=== PATIENT | male | born 1970 | race Two or more races ===

== ENCOUNTER 2016-10-25 09:30 | Inpatient (IN) | payer MEDICAID ==
[~2016-10-25] VITALS: Ht 170.2 cm; Wt 85.7 kg
[~2016-10-25 09:30] MED LIST: GLIP-116 PO; IBUP600T27 PO; LANS30CA63 PO; MET25T PO; METF-316 PO; NITR0.4S29 SL; ONGLYZA PO
[2016-10-25 09:59] LABS: Basophils # (auto) 0 uL; Basophils % (auto) 0.5 % (0.0-2.0); Eosinophils # (auto) 0.3 uL; Eosinophils % (auto) 4.9 % (0.0-7.0); Hemoglobin 11.7 g/dL (13.5-17.5); Lymphocytes # (auto) 1.3 uL; Lymphocytes % (auto) 20.8 % (10.0-50.0); Mean Corpuscular Hemoglobin 28.6 pg (28.0-32.0); Mean Corpuscular Hgb Conc. 34.4 g/dL (32.0-36.0); Mean Corpuscular Volume 83.1 fL (80.0-100.0); Mean Platelet Volume 7.7 fL (7.4-10.4); Monocytes # (auto) 0.6 uL; Monocytes % (auto) 10.3 % (0.0-12.0); Neutrophils # (auto) 3.9 uL; Neutrophils % (auto) 63.5 % (37.0-80.0); Platelet Count (auto) 278 10^3/uL (140-450); Red Cell Distribution Width 12.9 % (11.6-16.0); White Blood Cell 6.2 10^3/uL (4.4-10.8)
[2016-10-25 10:25] LABS: Albumin 3.8 g/dL (3.4-5.0); Alkaline Phosphatase 132 U/L (45-117); Anion Gap 11 (5-15); Aspartate Aminotransferase 23 U/L (15-37); BUN/Creatinine Ratio 19.5; Bilirubin, Total 0.4 mg/dL (0.2-1.0); Blood Urea Nitrogen 23 mg/dL (7-18); Calcium 8.1 mg/dL (8.5-10.1); Carbon Dioxide 24 mmol/L (21-32); Chloride 105 mmol/L (98-107); GFR African American 85 mL/min; GFR Non-African American 70 mL/min; Glucose 265 mg/dL (74-106); Magnesium 1.9 mg/dL (1.6-2.6); Potassium 4.6 mmol/L (3.5-5.1); Sodium 140 mmol/L (136-145); Total Protein 7.9 g/dL (6.4-8.2)
[2016-10-25] MEDS ORDERED: SODIUM CHLORIDE 0.9% 1,000 ML IV ONE (10:48)
[2016-10-25] MEDS ORDERED: MORPHINE SULFATE 4 MG/ML SYRG IV ONE (11:00)
[2016-10-25 11:43] LABS: INR 0.99 (0.9-1.15); Partial Thromboplastin Time 25.5 sec (22.64-33.71); Prothrombin Time 10.2 sec (9.37-12.3)
[2016-10-25] MEDS ORDERED: METOPROLOL TARTRATE 1MG/1ML-5ML VIAL IV ONE (12:30)
[2016-10-25] MEDS ORDERED: DEXTROSE (50%) 50ML SYRG IV PRN (13:30)
[2016-10-25] MEDS ORDERED: IBUPROFEN 600 MG TAB PO PRN (13:30)
[2016-10-25] MEDS ORDERED: MORPHINE SULF INJ 2 MG/ML SYRINGE 1ML IV PRN ×2 (13:45)
[2016-10-25] MEDS ORDERED: LORazepam 0.5 MG TAB PO PRN (13:45)
[2016-10-25] MEDS ORDERED: ALUM & MAG HYDROX-SIMETH LIQ(MAALOX) 30 ML PO PRN (13:45)
[2016-10-25] MEDS ORDERED: ONDANSETRON HCL 4 MG/2 ML VIAL IV PRN (13:45)
[2016-10-25] MEDS ORDERED: ZOLPIDEM TARTRATE 5 MG TAB PO PRN (13:45)
[2016-10-25] MEDS ORDERED: ACETAMINOPHEN 325 MG TAB PO PRN (13:45)
[2016-10-25] MEDS ORDERED: NITROGLYCERIN 0.4 MG SL TAB SL PRN ×2 (13:45)
[2016-10-25] MEDS ORDERED: METOPROLOL TARTRATE 25 MG TAB PO ONE (14:15)
[2016-10-25] MEDS ORDERED: cloNIDine HCL 0.1 MG TAB PO PRN (14:45)
[2016-10-25 15:25] LABS: Urine Bilirubin Negative (Negative); Urine Blood Negative /uL (Negative); Urine Color Colorless (Yellow); Urine Ketone Negative (Negative); Urine Nitrite Negative (Negative); Urine RBC <1 /hpf (0 - 3); Urine Urobilinogen Normal (Negative); Urine pH 5.5 (5.0-8.0)
[2016-10-25 15:27] LABS: Urine Glucose 4+ mg/dL (Normal)
[2016-10-25 15:27] LABS: B-Type Natriuretic Peptide 17.4 pg/mL (0-100); Temperature: 22.7 C (20.0-25.0)
[2016-10-25] MEDS ORDERED: SITA100T7 PO (16:43)
[2016-10-25] MEDS ORDERED: CLOP75TA41 PO (16:43)
[2016-10-25] MEDS ORDERED: NOR5T PO (16:43)
[2016-10-25] MEDS ORDERED: ENA2.5T PO (16:43)
[2016-10-25] MEDS ORDERED: ATOR20TA50 PO (16:43)
[2016-10-25] MEDS ORDERED: ASPI81TA27 PO (16:43)
[2016-10-25 16:44] VITALS: BP 146/84
[2016-10-25] MEDS: ACCU-CHEK COMFORT CURVE STRIP VI SCH ×2 (16:58→22:00)
[2016-10-25] MEDS: InsuLIN REG 1unit/0.01ml Soln (100units/ml) SC SCH ×2 (17:00→22:00)
[2016-10-25] MEDS: SODIUM CHLOR 0.9% PF (SALINE LOCK) 10ML VIAL IV SCH ×2 (17:11→21:34)
[2016-10-25] MEDS: DOCUSATE SOD 100 MG CAP PO SCH (17:12)
[2016-10-25] MEDS: ASPirin 81 mg TAB PO SCH (17:12)
[2016-10-25] MEDS: CLOPIDOGREL BISULFATE 75 MG TAB PO SCH (17:12)
[2016-10-25] MEDS: ENALAPRIL MALEATE 2.5 MG TAB PO SCH ×2 (17:13→21:36)
[2016-10-25] MEDS: glipiZIDE 5 MG TAB PO SCH (17:50)
[2016-10-25] MEDS: ATORVASTATIN 20 MG TAB PO SCH (21:34)
[2016-10-25] MEDS: METOPROLOL TARTRATE 25 MG TAB PO SCH (21:35)
[2016-10-25] MEDS: HYDROcodone-ACET 5/325MG TAB PO PRN (21:36)
[2016-10-25 21:49] VITALS: BP 144/88
[2016-10-26] MEDS: HYDROcodone-ACET 5/325MG TAB PO PRN ×2 (04:46→21:47)
[2016-10-26 05:12] VITALS: BP 113/71
[2016-10-26 05:47] LABS: Basophils # (auto) 0 uL; Basophils % (auto) 0.4 % (0.0-2.0); Eosinophils # (auto) 0.3 uL; Eosinophils % (auto) 5.5 % (0.0-7.0); Hematocrit 32.8 % (41.0-53.0); Hemoglobin 11.1 g/dL (13.5-17.5); Lymphocytes # (auto) 1.7 uL; Lymphocytes % (auto) 27.2 % (10.0-50.0); Mean Corpuscular Hemoglobin 28.8 pg (28.0-32.0); Mean Corpuscular Hgb Conc. 33.9 g/dL (32.0-36.0); Mean Corpuscular Volume 84.8 fL (80.0-100.0); Mean Platelet Volume 7.7 fL (7.4-10.4); Monocytes # (auto) 0.7 uL; Monocytes % (auto) 11.3 % (0.0-12.0); Neutrophils # (auto) 3.5 uL; Neutrophils % (auto) 55.6 % (37.0-80.0); Platelet Count (auto) 300 10^3/uL (140-450); White Blood Cell 6.3 10^3/uL (4.4-10.8)
[2016-10-26] MEDS: SODIUM CHLOR 0.9% PF (SALINE LOCK) 10ML VIAL IV SCH ×3 (05:47→21:45)
[2016-10-26] MEDS: glipiZIDE 5 MG TAB PO SCH ×2 (06:14→17:29)
[2016-10-26] MEDS: InsuLIN REG 1unit/0.01ml Soln (100units/ml) SC SCH ×4 (06:15→22:00)
[2016-10-26] MEDS: ACCU-CHEK COMFORT CURVE STRIP VI SCH ×4 (06:15→22:00)
[2016-10-26 08:00] VITALS: BP 123/80
[2016-10-26 09:00] VITALS: BP 123/80
[2016-10-26] MEDS: CLOPIDOGREL BISULFATE 75 MG TAB PO SCH (09:49)
[2016-10-26] MEDS: ASPirin 81 mg TAB PO SCH (09:49)
[2016-10-26] MEDS: DOCUSATE SOD 100 MG CAP PO SCH (09:49)
[2016-10-26] MEDS: METOPROLOL TARTRATE 25 MG TAB PO SCH ×2 (09:50→21:46)
[2016-10-26] MEDS: ENALAPRIL MALEATE 2.5 MG TAB PO SCH ×2 (09:50→21:47)
[2016-10-26] MEDS ORDERED: PANTOPRAZOLE 40 MG TAB PO SCH (10:00)
[2016-10-26 13:00] VITALS: BP 132/83
[2016-10-26 17:00] VITALS: BP 130/91
[2016-10-26] MEDS: ASPirin 325 MG TAB PO SCH (21:45)
[2016-10-26] MEDS: ATORVASTATIN 20 MG TAB PO SCH (21:46)
[2016-10-26] MEDS: COLCHICINE 0.6 MG CAP PO SCH (21:46)
[2016-10-26] MEDS: PANTOPRAZOLE 40 MG TAB PO SCH (21:46)
[2016-10-26 22:00] VITALS: BP 124/70
[2016-10-27 05:00] VITALS: BP 117/74
[2016-10-27] MEDS: ASPirin 325 MG TAB PO SCH ×3 (06:00→21:32)
[2016-10-27] MEDS: glipiZIDE 5 MG TAB PO SCH ×2 (06:12→17:23)
[2016-10-27] MEDS: InsuLIN REG 1unit/0.01ml Soln (100units/ml) SC SCH ×4 (06:13→21:46)
[2016-10-27] MEDS: ACCU-CHEK COMFORT CURVE STRIP VI SCH ×4 (06:13→21:47)
[2016-10-27] MEDS: SODIUM CHLOR 0.9% PF (SALINE LOCK) 10ML VIAL IV SCH ×3 (06:22→21:39)
[2016-10-27 08:30] VITALS: BP 130/80
[2016-10-27] MEDS ORDERED: ADENOSINE 72 MG in GIVE UN-DILUTED 0 ML IV ONE (09:30)
[2016-10-27] MEDS: ASPirin 81 mg TAB PO SCH (12:10)
[2016-10-27 12:11] VITALS: BP 134/84
[2016-10-27] MEDS: CLOPIDOGREL BISULFATE 75 MG TAB PO SCH (12:11)
[2016-10-27] MEDS: DOCUSATE SOD 100 MG CAP PO SCH (12:11)
[2016-10-27] MEDS: PANTOPRAZOLE 40 MG TAB PO SCH ×2 (12:11→21:31)
[2016-10-27] MEDS: COLCHICINE 0.6 MG CAP PO SCH ×2 (12:11→21:38)
[2016-10-27] MEDS: METOPROLOL TARTRATE 25 MG TAB PO SCH ×2 (12:13→21:38)
[2016-10-27] MEDS: ENALAPRIL MALEATE 2.5 MG TAB PO SCH ×2 (12:13→21:38)
[2016-10-27 16:16] VITALS: BP 110/71
[2016-10-27 20:00] VITALS: BP 110/70
[2016-10-27] MEDS: ATORVASTATIN 20 MG TAB PO SCH (21:31)
[2016-10-27 21:56] VITALS: BP 110/70
[2016-10-28 04:59] VITALS: BP 109/70
[2016-10-28] MEDS: ASPirin 325 MG TAB PO SCH ×2 (06:31→14:00)
[2016-10-28] MEDS: SODIUM CHLOR 0.9% PF (SALINE LOCK) 10ML VIAL IV SCH ×2 (06:31→14:13)
[2016-10-28] MEDS: glipiZIDE 5 MG TAB PO SCH ×2 (06:31→18:00)
[2016-10-28] MEDS: ACCU-CHEK COMFORT CURVE STRIP VI SCH ×3 (06:34→17:04)
[2016-10-28] MEDS: InsuLIN REG 1unit/0.01ml Soln (100units/ml) SC SCH ×3 (06:36→17:00)
[2016-10-28 09:00] VITALS: BP 124/76
[2016-10-28] MEDS: COLCHICINE 0.6 MG CAP PO SCH (10:36)
[2016-10-28] MEDS: ASPirin 81 mg TAB PO SCH (10:37)
[2016-10-28] MEDS: ENALAPRIL MALEATE 2.5 MG TAB PO SCH (10:37)
[2016-10-28] MEDS: CLOPIDOGREL BISULFATE 75 MG TAB PO SCH (10:37)
[2016-10-28] MEDS: PANTOPRAZOLE 40 MG TAB PO SCH (10:37)
[2016-10-28] MEDS: DOCUSATE SOD 100 MG CAP PO SCH (10:37)
[2016-10-28] MEDS: METOPROLOL TARTRATE 25 MG TAB PO SCH (10:40)
[2016-10-28 12:59] VITALS: BP 127/85
[2016-10-28 16:57] VITALS: BP 119/75
[2016-10-28 17:04] VITALS: BP 127/85
== END 2016-10-28 16:20 | disposition home or self-care (01) | DRG 207 ==
LOC: ER 09:39 → TELE 09:40 → TELE-WESTW 15:35
PROVIDERS: ADMIT Internal Medicine; ATTEND Internal Medicine
DX: I30.9 Acute pericarditis, unspecified (principal); E11.21 Type 2 diabetes mellitus with diabetic nephropathy; I25.110 Atherosclerotic heart disease of native coronary artery with unstable angina pectoris; E11.65 Type 2 diabetes mellitus with hyperglycemia; E83.51 Hypocalcemia; I12.9 Hypertensive chronic kidney disease with stage 1 through stage 4 chronic kidney disease, or unspecified chronic kidney disease; N18.2 Chronic kidney disease, stage 2 (mild); Z95.5 Presence of coronary angioplasty implant and graft; D63.8 Anemia in other chronic diseases classified elsewhere; E11.22 Type 2 diabetes mellitus with diabetic chronic kidney disease; Z82.49 Family history of ischemic heart disease and other diseases of the circulatory system; Z83.3 Family history of diabetes mellitus; Z86.73 Personal history of transient ischemic attack (TIA), and cerebral infarction without residual deficits; I25.2 Old myocardial infarction; K21.9 Gastro-esophageal reflux disease without esophagitis; Z90.49 Acquired absence of other specified parts of digestive tract; Z71.89 Other specified counseling; Z98.61 Coronary angioplasty status
CPT/HCPCS: 36415; 71020; 78452; 80053; 80061; 81001; 82962; 83036; 83735; 83880; 84443; 84484; 85025; 85379; 85610; 85730; 93005; 93017; 94761; 96361; 96374; 96375; J0153; J1815

== ENCOUNTER 2017-01-17 07:37 | Inpatient (IN) | payer MEDICAID ==
[~2017-01-17] VITALS: Ht 170.2 cm; Wt 87.4 kg
[~2017-01-17 07:37] MED LIST changes: +ATOR20TA50 PO; +CLOP75TA41 PO; +ENA2.5T PO; +HYDR-4663 PO; -IBUP600T27 PO; -METF-316 PO; +METF-372 PO; -ONGLYZA PO; +SITA100T7 PO
[2017-01-17 08:38] LABS: Basophils # (auto) 0 uL; Basophils % (auto) 0.5 % (0.0-2.0); CONDITION AutoValidated; Eosinophils # (auto) 0.2 uL; Eosinophils % (auto) 3.3 % (0.0-7.0); Hematocrit 33.3 % (41.0-53.0); Hemoglobin 11.2 g/dL (13.5-17.5); Lymphocytes % (auto) 17.9 % (10.0-50.0); Mean Corpuscular Hemoglobin 28.8 pg (28.0-32.0); Mean Corpuscular Hgb Conc. 33.8 g/dL (32.0-36.0); Mean Corpuscular Volume 85.3 fL (80.0-100.0); Monocytes # (auto) 0.6 uL; Monocytes % (auto) 10.1 % (0.0-12.0); Neutrophils % (auto) 68.2 % (37.0-80.0); Platelet Count (auto) 277 10^3/uL (140-450); Red Cell Distribution Width 12.6 % (11.6-16.0); White Blood Cell 5.8 10^3/uL (4.4-10.8)
[2017-01-17 09:07] LABS: Albumin 3.5 g/dL (3.4-5.0); Bilirubin, Total 0.5 mg/dL (0.2-1.0); Total Protein 6.9 g/dL (6.4-8.2)
[2017-01-17] MEDS ORDERED: LORazepam 2MG/ML-1ML VIAL IV ONE (10:00)
[2017-01-17] MEDS ORDERED: MORPHINE SULFATE 4 MG/ML SYRG IV ONE (10:00)
[2017-01-17] MEDS ORDERED: ONDANSETRON HCL 4 MG/2 ML VIAL IV ONE (10:00)
[2017-01-17] MEDS ORDERED: NITROGLYCERIN 0.4 MG SL TAB SL ONE (11:15)
[2017-01-17] MEDS ORDERED: ONDANSETRON HCL 4 MG/2 ML VIAL IV PRN (13:15)
[2017-01-17] MEDS ORDERED: MORPHINE SULF INJ 2 MG/ML SYRINGE 1ML IV PRN (13:15)
[2017-01-17] MEDS ORDERED: NITROGLYCERIN 0.4 MG SL TAB SL PRN ×2 (13:15)
[2017-01-17] MEDS ORDERED: LORazepam 0.5 MG TAB PO PRN (13:15)
[2017-01-17] MEDS ORDERED: ALUM & MAG HYDROX-SIMETH LIQ(MAALOX) 30 ML PO ONE (13:15)
[2017-01-17] MEDS ORDERED: DEXTROSE (50%) 50ML SYRG IV PRN (13:15)
[2017-01-17] MEDS ORDERED: ZOLPIDEM TARTRATE 5 MG TAB PO PRN (13:15)
[2017-01-17] MEDS ORDERED: ACETAMINOPHEN 325 MG TAB PO PRN (13:15)
[2017-01-17] MEDS ORDERED: CARVEDILOL 3.125 MG TAB PO ONE (13:30)
[2017-01-17] MEDS ORDERED: PANTOPRAZOLE 40 MG TAB PO ONE (13:30)
[2017-01-17] MEDS ORDERED: ENALAPRIL MALEATE 2.5 MG TAB PO ONE (13:30)
[2017-01-17] MEDS ORDERED: CLOPIDOGREL BISULFATE 75 MG TAB PO ONE (13:30)
[2017-01-17] MEDS ORDERED: DOCUSATE SOD 100 MG CAP PO ONE (13:30)
[2017-01-17] MEDS ORDERED: ASPirin-EC 81 mg tab PO ONE (13:30)
[2017-01-17] MEDS: SODIUM CHLOR 0.9% PF (SALINE LOCK) 10ML VIAL IV SCH ×2 (13:51→22:19)
[2017-01-17] MEDS: MORPHINE SULF INJ 2 MG/ML SYRINGE 1ML IV PRN ×3 (14:19→23:38)
[2017-01-17] MEDS ORDERED: GABA-494 PO (14:48)
[2017-01-17] MEDS ORDERED: PANT40TA2 PO (14:48)
[2017-01-17 15:12] VITALS: BP 106/71
[2017-01-17 15:31] VITALS: BP 106/71
[2017-01-17] MEDS: ACCU-CHEK COMFORT CURVE STRIP VI SCH ×2 (16:45→22:18)
[2017-01-17] MEDS: glipiZIDE 5 MG TAB PO SCH (17:28)
[2017-01-17] MEDS: InsuLIN REG 1unit/0.01ml Soln (100units/ml) SC SCH (17:28)
[2017-01-17 18:59] LABS: B-Type Natriuretic Peptide 8.9 pg/mL (0-100)
[2017-01-17 19:45] LABS: Temperature: 22.9 C (20.0-25.0)
[2017-01-17 20:00] VITALS: BP 124/78
[2017-01-17 20:30] VITALS: BP 124/78
[2017-01-17] MEDS ORDERED: ATORVASTATIN 20 MG TAB PO SCH (22:00)
[2017-01-17] MEDS ORDERED: GABAPENTIN 100 MG CAP PO SCH (22:00)
[2017-01-17] MEDS ORDERED: InsuLIN REG 1unit/0.01ml Soln (100units/ml) SC SCH (22:00)
[2017-01-17] MEDS: CARVEDILOL 3.125 MG TAB PO SCH (22:10)
[2017-01-17 23:55] LABS: Urine RBC None Seen /hpf (0 - 3)
[2017-01-18 00:20] LABS: Urine Bilirubin Negative (Negative); Urine Blood Negative /uL (Negative); Urine Color Yellow (Yellow); Urine Ketone Negative (Negative); Urine Nitrite Negative (Negative); Urine Squamous Epithelial Cell FEW /hpf (<5); Urine Urobilinogen Normal (Negative)
[2017-01-18 00:21] LABS: Urine Glucose 3+ mg/dL (Normal)
[2017-01-18 05:43] LABS: Basophils # (auto) 0 uL; Basophils % (auto) 0.3 % (0.0-2.0); CONDITION AutoValidated; Eosinophils # (auto) 0.3 uL; Eosinophils % (auto) 3.3 % (0.0-7.0); Hematocrit 34.3 % (41.0-53.0); Hemoglobin 11.6 g/dL (13.5-17.5); Lymphocytes # (auto) 1.3 uL; Lymphocytes % (auto) 16.7 % (10.0-50.0); Mean Corpuscular Hemoglobin 28.8 pg (28.0-32.0); Mean Corpuscular Hgb Conc. 33.9 g/dL (32.0-36.0); Mean Corpuscular Volume 85.1 fL (80.0-100.0); Mean Platelet Volume 8.2 fL (7.4-10.4); Monocytes # (auto) 0.7 uL; Monocytes % (auto) 8.5 % (0.0-12.0); Neutrophils # (auto) 5.5 uL; Neutrophils % (auto) 71.2 % (37.0-80.0); Platelet Count (auto) 272 10^3/uL (140-450); Red Cell Distribution Width 12.7 % (11.6-16.0); White Blood Cell 7.8 10^3/uL (4.4-10.8)
[2017-01-18 05:51] VITALS: BP 105/63
[2017-01-18 06:05] LABS: Albumin 3.4 g/dL (3.4-5.0); BUN/Creatinine Ratio 20.2; Bilirubin, Total 0.5 mg/dL (0.2-1.0); Calcium 8.2 mg/dL (8.5-10.1); Potassium 4.3 mmol/L (3.5-5.1); Total Protein 6.6 g/dL (6.4-8.2)
[2017-01-18] MEDS: glipiZIDE 5 MG TAB PO SCH ×2 (06:39→17:39)
[2017-01-18] MEDS: ACCU-CHEK COMFORT CURVE STRIP VI SCH ×3 (06:41→16:32)
[2017-01-18] MEDS: SODIUM CHLOR 0.9% PF (SALINE LOCK) 10ML VIAL IV SCH ×2 (06:41→14:00)
[2017-01-18] MEDS: InsuLIN REG 1unit/0.01ml Soln (100units/ml) SC SCH ×3 (06:41→16:48)
[2017-01-18 09:00] VITALS: BP 126/83
[2017-01-18] MEDS: CARVEDILOL 3.125 MG TAB PO SCH (09:47)
[2017-01-18] MEDS ORDERED: ASPirin-EC 81 mg tab PO SCH (10:00)
[2017-01-18] MEDS ORDERED: ENALAPRIL MALEATE 2.5 MG TAB PO SCH (10:00)
[2017-01-18] MEDS ORDERED: JANUVIA 100MG PO SCH (10:00)
[2017-01-18] MEDS ORDERED: DOCUSATE SOD 100 MG CAP PO SCH (10:00)
[2017-01-18] MEDS ORDERED: CLOPIDOGREL BISULFATE 75 MG TAB PO SCH (10:00)
[2017-01-18] MEDS ORDERED: PANTOPRAZOLE 40 MG TAB PO SCH (10:00)
[2017-01-18] MEDS ORDERED: ISOSORBIDE MONONITRATE 60 MG TAB PO SCH (10:00)
[2017-01-18 13:00] VITALS: BP 134/85
[2017-01-18 17:00] VITALS: BP 95/67
[2017-01-18 17:49] VITALS: BP 95/57
== END 2017-01-18 18:30 | disposition home or self-care (01) | DRG 198 ==
LOC: ER 07:37 → TELE 07:38 → TELE-CENTR 14:27
PROVIDERS: ADMIT Internal Medicine; ATTEND Internal Medicine
DX: R07.9 Chest pain, unspecified (principal); I25.2 Old myocardial infarction; E11.21 Type 2 diabetes mellitus with diabetic nephropathy; E11.22 Type 2 diabetes mellitus with diabetic chronic kidney disease; N18.9 Chronic kidney disease, unspecified; I12.9 Hypertensive chronic kidney disease with stage 1 through stage 4 chronic kidney disease, or unspecified chronic kidney disease; D63.8 Anemia in other chronic diseases classified elsewhere; E83.51 Hypocalcemia; E87.1 Hypo-osmolality and hyponatremia; I25.10 Atherosclerotic heart disease of native coronary artery without angina pectoris; E11.65 Type 2 diabetes mellitus with hyperglycemia; Z95.5 Presence of coronary angioplasty implant and graft; Z86.73 Personal history of transient ischemic attack (TIA), and cerebral infarction without residual deficits; Z90.49 Acquired absence of other specified parts of digestive tract; Z83.3 Family history of diabetes mellitus; Z82.49 Family history of ischemic heart disease and other diseases of the circulatory system
CPT/HCPCS: 36415; 71010; 80053; 80061; 81001; 82962; 83036; 83735; 83880; 84443; 84484; 85025; 85652; 93005; 93306; 96374; 96375; J1815; J2405

== ENCOUNTER 2017-09-27 01:18 | Emergency (ER) | payer MEDICAID ==
[~2017-09-27] VITALS: Ht 167.6 cm; Wt 5.4 kg
[~2017-09-27 01:18] MED LIST changes: +GABA100C9 PO; -HYDR-4663 PO; -LANS30CA63 PO; -MET25T PO; +PANT40TA2 PO
[2017-09-27] MEDS ORDERED: cloNIDine HCL 0.1 MG TAB ONE (01:31)
[2017-09-27] MEDS ORDERED: cloNIDine HCL 0.1 MG TAB PO ONE (01:45)
[2017-09-27] MEDS ORDERED: KETOROLAC TROMETH 60MG/2ML VIAL IM ONE (07:00)
[2017-09-27] MEDS ORDERED: HYDROcodone-ACET 10/325MG TAB PO ONE (07:00)
[2017-09-27 07:10] VITALS: BP 149/86
== END 2017-09-27 07:53 | disposition home or self-care (01) ==
LOC: ER 01:22
DX: M25.551 Pain in right hip (principal); I10 Essential (primary) hypertension; E11.9 Type 2 diabetes mellitus without complications; Z79.84 Long term (current) use of oral hypoglycemic drugs; Z86.73 Personal history of transient ischemic attack (TIA), and cerebral infarction without residual deficits; Z90.49 Acquired absence of other specified parts of digestive tract; W01.0XXA Fall on same level from slipping, tripping and stumbling without subsequent striking against object, initial encounter; Y93.89 Activity, other specified; Y92.89 Other specified places as the place of occurrence of the external cause; Y99.8 Other external cause status
CPT/HCPCS: 73502; 82962; 96372; 99284; J1885

== ENCOUNTER 2019-05-02 23:56 | Emergency (ER) | payer MEDICAID ==
[~2019-05-02] VITALS: Ht 167.6 cm; Wt 81.6 kg
[~2019-05-02 23:56] MED LIST changes: -ENA2.5T PO; +ENAL2.5T2 PO; -GLIP-116 PO; +GLIP10TA9 PO
[2019-05-03 01:20] LABS: Basophils # (auto) 0 uL; Basophils % (auto) 0.5 % (0.0-2.0); Eosinophils # (auto) 0 uL; Eosinophils % (auto) 0.6 % (0.0-7.0); Hematocrit 31.6 % (41.0-53.0); Hemoglobin 11.1 g/dL (13.5-17.5); Lymphocytes # (auto) 1.5 uL; Lymphocytes % (auto) 25.6 % (10.0-50.0); Mean Corpuscular Hemoglobin 30.1 pg (28.0-32.0); Mean Corpuscular Hgb Conc. 35.2 g/dL (32.0-36.0); Mean Corpuscular Volume 85.6 fL (80.0-100.0); Monocytes # (auto) 0.6 uL; Monocytes % (auto) 11.2 % (0.0-12.0); Neutrophils # (auto) 3.5 uL; Neutrophils % (auto) 62.1 % (37.0-80.0); Platelet Count (auto) 311 10^3/uL (140-450); Red Cell Distribution Width 13.2 % (11.8-14.3); White Blood Cell 5.7 10^3/uL (4.4-10.8)
[2019-05-03 01:35] VITALS: BP 138/79
[2019-05-03 01:37] LABS: Anion Gap 7 (5-15); BUN/Creatinine Ratio 14.8; Blood Urea Nitrogen 18 mg/dL (7-18); Calcium 8.3 mg/dL (8.5-10.1); Carbon Dioxide 26 mmol/L (21-32); Chloride 108 mmol/L (98-107); GFR African American 81 mL/min; GFR Non-African American 67 mL/min; Glucose 118 mg/dL (74-106); Potassium 3.7 mmol/L (3.5-5.1); Sodium 141 mmol/L (136-145)
[2019-05-03 01:42] LABS: Alanine Aminotransferase 25 U/L (16-61); Alkaline Phosphatase 80 U/L (45-117); Aspartate Aminotransferase 17 U/L (15-37); Bilirubin, Total 0.6 mg/dL (0.2-1.0); Total Protein 7.6 g/dL (6.4-8.2)
== END 2019-05-03 03:36 | disposition left against medical advice (07) ==
LOC: EDBD 23:56 → EDUNIT# 23:56 → ER 05-03
DX: R07.9 Chest pain, unspecified (principal); E86.0 Dehydration; E11.22 Type 2 diabetes mellitus with diabetic chronic kidney disease; I12.9 Hypertensive chronic kidney disease with stage 1 through stage 4 chronic kidney disease, or unspecified chronic kidney disease; N18.9 Chronic kidney disease, unspecified; Z79.01 Long term (current) use of anticoagulants; Z79.84 Long term (current) use of oral hypoglycemic drugs; Z79.899 Other long term (current) drug therapy; Z86.73 Personal history of transient ischemic attack (TIA), and cerebral infarction without residual deficits; Z90.49 Acquired absence of other specified parts of digestive tract; Z98.61 Coronary angioplasty status; Z53.29 Procedure and treatment not carried out because of patient's decision for other reasons
CPT/HCPCS: 36415; 71045; 80053; 83880; 84484; 85025; 93005

== ENCOUNTER 2019-06-28 20:08 | Inpatient (IN) | payer MEDICAID ==
[~2019-06-28] VITALS: Ht 170.2 cm; Wt 85.8 kg
[2019-06-28] MEDS ORDERED: ONDANSETRON HCL 4 MG/2 ML VIAL IV ONE (21:00)
[2019-06-28] MEDS ORDERED: MORPHINE SULFATE 4 MG/ML SYR/VIAL IV ONE (21:00)
[2019-06-28 21:14] LABS: Basophils # (auto) 0 uL; Basophils % (auto) 0.7 % (0.0-2.0); Eosinophils # (auto) 0.1 uL; Eosinophils % (auto) 1.6 % (0.0-7.0); Hemoglobin 11.8 g/dL (13.5-17.5); Lymphocytes # (auto) 1.6 uL; Lymphocytes % (auto) 26.1 % (10.0-50.0); Mean Corpuscular Hemoglobin 30.1 pg (28.0-32.0); Mean Corpuscular Hgb Conc. 34.8 g/dL (32.0-36.0); Mean Corpuscular Volume 86.3 fL (80.0-100.0); Monocytes # (auto) 0.7 uL; Neutrophils # (auto) 3.7 uL; Neutrophils % (auto) 60.6 % (37.0-80.0); Platelet Count (auto) 280 10^3/uL (140-450); Red Blood Cells 3.94 10^6/uL (4.5-5.90); Red Cell Distribution Width 13.1 % (11.8-14.3); White Blood Cell 6.1 10^3/uL (4.4-10.8)
[2019-06-28] MEDS ORDERED: TEMAZEPAM 15 MG CAP PO PRN (21:45)
[2019-06-28] MEDS ORDERED: ACETAMINOPHEN 325 MG TAB PO PRN (21:45)
[2019-06-28] MEDS ORDERED: DEXTROSE (50%) 50ML SYRG IV PRN (21:45)
[2019-06-28] MEDS ORDERED: ONDANSETRON HCL 4 MG/2 ML VIAL IV PRN (21:45)
[2019-06-28 21:46] LABS: Alanine Aminotransferase 24 U/L (16-61); Albumin 3.7 g/dL (3.4-5.0); Anion Gap 6 (5-15); Aspartate Aminotransferase 21 U/L (15-37); BUN/Creatinine Ratio 14.8; Blood Urea Nitrogen 19 mg/dL (7-18); Calcium 8.1 mg/dL (8.5-10.1); Carbon Dioxide 26 mmol/L (21-32); Chloride 107 mmol/L (98-107); GFR African American 77 mL/min; GFR Non-African American 63 mL/min; Glucose 129 mg/dL (74-106); Magnesium 2.1 mg/dL (1.6-2.6); Potassium 3.7 mmol/L (3.5-5.1); Sodium 139 mmol/L (136-145)
[2019-06-28 22:03] LABS: Alkaline Phosphatase 93 U/L (45-117); Bilirubin, Total 0.4 mg/dL (0.2-1.0); Total Protein 7.5 g/dL (6.4-8.2)
--- NOTE | 2019-06-28 22:40 | NUR ---
Telemetry admit from SUPA GROSS admitted to Telemetry. Patient oriented to MELIZA PALENCIA, primary RN, unit, room 250, bed A, and unit policies regarding patient care and visiting hours. Patient now on continuous telemetry monitoring, tele box #12 and telemetry reading on arrival to unit is SR. Patient weighed by bedscale and encouraged to call if they need something. Pt now laying in bed with the rails up x2, bed locked in the lowest position and the call light is within reach. All questions and concerns addressed, patient verbalized understanding.
[2019-06-28 23:00] VITALS: BP 156/85
[2019-06-28 23:04] VITALS: BP 156/85
[2019-06-28] MEDS: FAMOTIDINE 20 MG TAB PO SCH (23:38)
[2019-06-28] MEDS: ATORVASTATIN 20 MG TAB PO SCH (23:38)
[2019-06-29] MEDS: ACCU-CHEK COMFORT CURVE STRIP VI SCH ×5 (00:10→23:45)
[2019-06-29] MEDS: InsuLIN REG 1unit/0.01ml Soln (100units/ml) SC SCH ×5 (00:10→23:44)
[2019-06-29] MEDS ORDERED: METF-370 PO (02:11)
[2019-06-29] MEDS ORDERED: PIO30T PO (02:11)
[2019-06-29] MEDS ORDERED: METO-169 PO (02:11)
[2019-06-29] MEDS: NITROGLYCERIN 0.4 MG SL TAB SL PRN ×2 (03:12→03:23)
[2019-06-29] MEDS: MORPHINE SULF INJ 2 MG/ML SYRINGE 1ML IV PRN ×2 (03:36→04:24)
[2019-06-29 05:39] VITALS: BP 155/65
[2019-06-29] MEDS ORDERED: HYDROcodone-ACET 7.5/325MG TAB PO ONE (06:00)
--- NOTE | 2019-06-29 06:00 | NUR ---
Pt complaining of Chest Pain 03/12 0305- EKG performed (Normal EKG per machine) Vitals - 134/75, p-75, O2-94, R-18, T-97.6. Placed on 2l NC. Administered 1st Nitro. 0320- Pain still 03/12. Vitals - 139/81, O2-98, P-62. Administered 2nd Nitro. 0330- Pain still 03/12. Vitals - 131/72, O2-96, P-61. Patient refused 3rd nitro stating "it gives me a huge headache" 0340- Morphine Given. 0410- Pain Now 02/09 0420- Second Morphine Given, 0500- Pain now 12/10. Patient states he is a bit more comfortable now but still cant sleep because of the pain. Hospitalist Paged [phone]- Informed Hospitalist of result of EKG and use of the CP protocol. Received orders for [place] 7.5/325 X1.
[2019-06-29 06:38] LABS: Basophils # (auto) 0 uL; Basophils % (auto) 0.6 % (0.0-2.0); Eosinophils # (auto) 0.1 uL; Eosinophils % (auto) 1.8 % (0.0-7.0); Hematocrit 32.7 % (41.0-53.0); Hemoglobin 11.5 g/dL (13.5-17.5); Lymphocytes # (auto) 1.4 uL; Lymphocytes % (auto) 27.6 % (10.0-50.0); Mean Corpuscular Hemoglobin 30.5 pg (28.0-32.0); Mean Corpuscular Hgb Conc. 35.1 g/dL (32.0-36.0); Monocytes # (auto) 0.6 uL; Monocytes % (auto) 12.1 % (0.0-12.0); Neutrophils % (auto) 57.9 % (37.0-80.0); Platelet Count (auto) 252 10^3/uL (140-450); Red Blood Cells 3.76 10^6/uL (4.5-5.90); Red Cell Distribution Width 12.8 % (11.8-14.3); White Blood Cell 5.1 10^3/uL (4.4-10.8)
[2019-06-29 06:57] LABS: Anion Gap 5 (5-15); Calcium 8.3 mg/dL (8.5-10.1); Carbon Dioxide 27 mmol/L (21-32); Chloride 108 mmol/L (98-107); Glucose 125 mg/dL (74-106); Potassium 3.7 mmol/L (3.5-5.1); Sodium 140 mmol/L (136-145)
[2019-06-29 07:02] LABS: BUN/Creatinine Ratio 14.8; Blood Urea Nitrogen 16 mg/dL (7-18); GFR African American 93 mL/min; GFR Non-African American 77 mL/min
--- NOTE | 2019-06-29 07:11 | NUR ---
Opening Shift Note Assumed care of patient, awake and alert. No S/S of distress/SOB or pain. Instructed on POC and to call for assist PRN, will continue to monitor for changes Q1hr and PRN. Bed set in lowest locked position with side rails up x2 and call light is within reach.
[2019-06-29 08:11] VITALS: BP 140/87
[2019-06-29 09:00] VITALS: BP 140/87
[2019-06-29] MEDS: FAMOTIDINE 20 MG TAB PO SCH ×2 (10:00→21:07)
[2019-06-29] MEDS: ASPirin 81 mg TAB PO SCH (10:01)
[2019-06-29] MEDS: CLOPIDOGREL BISULFATE 75 MG TAB PO SCH (10:01)
[2019-06-29] MEDS: METOPROLOL SUCCINATE XL 50 MG TAB PO SCH (10:02)
--- NOTE | 2019-06-29 12:15 | NUR ---
Patient off unit Taken down for stress test via wheelchair no signs/symptoms of distress noted.
[2019-06-29] MEDS ORDERED: ADENOSINE 68 MG in GIVE UN-DILUTED 0 ML IV ONE (12:30)
[2019-06-29 13:00] VITALS: BP 128/75
[2019-06-29 17:05] VITALS: BP 135/70
--- NOTE | 2019-06-29 19:25 | NUR ---
Endorsed care to NOC RN.
[2019-06-29] MEDS: ATORVASTATIN 20 MG TAB PO SCH (21:07)
[2019-06-29 22:00] VITALS: BP 122/68
[2019-06-30 05:00] VITALS: BP 125/75
[2019-06-30] MEDS: InsuLIN REG 1unit/0.01ml Soln (100units/ml) SC SCH (05:53)
[2019-06-30] MEDS: ACCU-CHEK COMFORT CURVE STRIP VI SCH (05:54)
[2019-06-30 06:40] LABS: Calcium 8.7 mg/dL (8.5-10.1); Magnesium 2.3 mg/dL (1.6-2.6); Potassium 3.6 mmol/L (3.5-5.1)
--- NOTE | 2019-06-30 07:45 | NUR ---
MD ROUNDS DR ARMENTA AT BEDSIDE DISCUSSING POC WITH PATIENT ALL QUESTIONS/CONCERNS ANSWERED. NEW ORDERS RECEIVED/CARRIED OUT. WILL CONTINUE TO MONITOR
--- NOTE | 2019-06-30 07:50 | NUR ---
PAGED PAGED DR MARTIN RE: STRESS TEST RESULTS. DISCHARGE PENDING RESULTS MD CALL DR STARK RETURNED CALL RE: STRESS TEST. PER DR MARTIN, PATIENT CLEARED FOR D/C
[2019-06-30 09:01] VITALS: BP 146/87
[2019-06-30] MEDS ORDERED: amLODIPine BESYLATE 5 MG TAB PO SCH (10:00)
[2019-06-30] MEDS ORDERED: LISINOPRIL 10 MG TAB PO SCH (10:00)
[2019-06-30] MEDS: ASPirin 81 mg TAB PO SCH (10:13)
[2019-06-30] MEDS: FAMOTIDINE 20 MG TAB PO SCH (10:13)
[2019-06-30] MEDS: CLOPIDOGREL BISULFATE 75 MG TAB PO SCH (10:13)
[2019-06-30] MEDS: METOPROLOL SUCCINATE XL 50 MG TAB PO SCH (10:14)
--- NOTE | 2019-06-30 12:14 | NUR ---
Discharge instructions given as ordered. Encourage to follow up with PMD as instructed. All questions and concerns addressed. Patient verbalized understanding. IV removed with catheter intact, pressure dressing applied. Telemetry unit returned to ICU. Patient taken to vehicle via wheelchair with all personal belongings, accompanied by staff and family member. No distress noted at time of departure.
== END 2019-06-30 11:55 | disposition home or self-care (01) | DRG 194 ==
LOC: ER 20:12 → TELE 20:13 → TELE-EAST 22:41
PROVIDERS: ADMIT Nurse Practitioner; ATTEND Internal Medicine
DX: I13.0 Hypertensive heart and chronic kidney disease with heart failure and stage 1 through stage 4 chronic kidney disease, or unspecified chronic kidney disease (principal); E11.22 Type 2 diabetes mellitus with diabetic chronic kidney disease; I50.31 Acute diastolic (congestive) heart failure; I25.10 Atherosclerotic heart disease of native coronary artery without angina pectoris; E78.5 Hyperlipidemia, unspecified; N18.9 Chronic kidney disease, unspecified; Z95.5 Presence of coronary angioplasty implant and graft; Z79.4 Long term (current) use of insulin; Z80.1 Family history of malignant neoplasm of trachea, bronchus and lung; Z80.3 Family history of malignant neoplasm of breast; Z80.42 Family history of malignant neoplasm of prostate; Z80.8 Family history of malignant neoplasm of other organs or systems; Z81.8 Family history of other mental and behavioral disorders; Z82.0 Family history of epilepsy and other diseases of the nervous system; Z82.3 Family history of stroke; Z82.49 Family history of ischemic heart disease and other diseases of the circulatory system; Z82.5 Family history of asthma and other chronic lower respiratory diseases; Z82.62 Family history of osteoporosis; Z83.3 Family history of diabetes mellitus; Z86.73 Personal history of transient ischemic attack (TIA), and cerebral infarction without residual deficits; Z90.49 Acquired absence of other specified parts of digestive tract; Z79.899 Other long term (current) drug therapy
CPT/HCPCS: 36415; 71045; 78452; 80048; 80053; 80061; 82962; 83036; 83735; 83880; 84484; 85025; 85379; 93005; 93017; 93306; 96365; 96375; G0378; J0153; J1815; J2405

== ENCOUNTER 2020-05-27 01:06 | Inpatient (IN) | payer MEDICAID ==
[~2020-05-27] VITALS: Ht 170.2 cm; Wt 84.0 kg
[~2020-05-27 01:06] MED LIST changes: -ENAL2.5T2 PO; -GABA100C9 PO; -GLIP10TA9 PO; +METF-370 PO; -METF-372 PO; +METO-169 PO; +PIO30T PO; -SITA100T7 PO
[2020-05-27 02:40] LABS: Basophils # (auto) 0 10 ^3/uL (0-0.2); Basophils % (auto) 0.5 % (0.0-2.0); Eosinophils # (auto) 0.1 10 ^3/uL (0-0.8); Eosinophils % (auto) 1.8 % (0.0-7.0); Hematocrit 33.2 % (41.0-53.0); Hemoglobin 11.6 g/dL (13.5-17.5); Lymphocytes # (auto) 1.8 10 ^3/uL (0.4-5.4); Lymphocytes % (auto) 26.7 % (10.0-50.0); Mean Corpuscular Hemoglobin 30.2 pg (28.0-32.0); Mean Corpuscular Hgb Conc. 35.1 g/dL (32.0-36.0); Mean Corpuscular Volume 86.1 fL (80.0-100.0); Monocytes # (auto) 0.7 10 ^3/uL (0-1.3); Monocytes % (auto) 10.9 % (0.0-12.0); Neutrophils % (auto) 60.1 % (37.0-80.0); Nucleated Red Blood Cells % 0.3 %; Platelet Count (auto) 302 10^3/uL (140-450); Red Blood Cells 3.85 10^6/uL (4.5-5.90); Red Cell Distribution Width 12.6 % (11.8-14.3); White Blood Cell 6.7 10^3/uL (4.4-10.8)
[2020-05-27 02:58] LABS: INR 0.92 (0.9-1.15); Partial Thromboplastin Time 25.6 sec (23.0-31.2)
[2020-05-27 03:00] LABS: Albumin 3.4 g/dL (3.4-5.0); Anion Gap 8 (5-15); BUN/Creatinine Ratio 13.1; Blood Urea Nitrogen 21 mg/dL (7-18); Calcium 7.9 mg/dL (8.5-10.1); Carbon Dioxide 25 mmol/L (21-32); Chloride 105 mmol/L (98-107); GFR African American 59 mL/min; GFR Non-African American 49 mL/min; Glucose 264 mg/dL (74-106); Potassium 3.6 mmol/L (3.5-5.1); Sodium 138 mmol/L (136-145)
[2020-05-27 03:04] LABS: Alanine Aminotransferase 21 U/L (16-61); Alkaline Phosphatase 124 U/L (45-117); Aspartate Aminotransferase 15 U/L (15-37); Bilirubin, Total 0.3 mg/dL (0.2-1.0); Total Protein 7.2 g/dL (6.4-8.2)
[2020-05-27] MEDS ORDERED: ONDANSETRON HCL 4 MG/2 ML VIAL IV ONE ×3 (03:15→10:30)
[2020-05-27] MEDS ORDERED: MORPHINE SULFATE 4 MG/ML SYR/VIAL IV ONE (03:15)
[2020-05-27] MEDS ORDERED: MORPHINE SULF INJ 2 MG/ML SYRINGE 1ML ONE (03:26)
[2020-05-27] MEDS ORDERED: MORPHINE SULFATE 4 MG/ML SYR/VIAL ONE (03:27)
[2020-05-27] MEDS ORDERED: MORPHINE SULFATE 10 MG/ML INJ 1ML SDV IV ONE (03:30)
[2020-05-27] MEDS ORDERED: SODIUM CHLORIDE 0.9% 1,000 ML IV ONE (10:30)
[2020-05-27] MEDS ORDERED: NITROGLYCERIN 0.4 MG SL TAB SL PRN ×3 (11:30→21:30)
[2020-05-27] MEDS ORDERED: ACETAMINOPHEN 325 MG TAB PO PRN ×2 (11:30→21:15)
[2020-05-27] MEDS ORDERED: HYDROcodone-ACET 5/325MG TAB PO PRN ×2 (11:30→21:00)
[2020-05-27] MEDS ORDERED: SODIUM CHLORIDE 0.9% 2,000 ML IV SCH (11:30)
[2020-05-27] MEDS ORDERED: MORPHINE SULF INJ 2 MG/ML SYRINGE 1ML IV PRN ×2 (11:30→21:30)
[2020-05-27] MEDS ORDERED: DEXTROSE (50%) 50ML SYRG IV PRN ×2 (11:30→21:15)
[2020-05-27] MEDS ORDERED: amLODIPine BESYLATE 5 MG TAB PO SCH (11:30)
[2020-05-27] MEDS: ACCU-CHEK COMFORT CURVE STRIP VI SCH ×3 (12:22→21:50)
[2020-05-27] MEDS: InsuLIN REG 1unit/0.01ml Soln (100units/ml) SC SCH ×3 (12:28→21:51)
--- NOTE | 2020-05-27 14:20 | NUR ---
Telemetry admit from ER: SUPA LANDIN admitted to Telemetry unit after SBAR received. Patient oriented to WHITNEY LUKE, RN primary RN, unit, room, bed, and unit policies regarding patient care and visiting hours. Patient now on continuous telemetry monitoring, tele box # 84 and telemetry reading on arrival to unit is SR. Patient encouraged to call if they need something. All questions and concerns addressed, patient verbalized understanding.
[2020-05-27 16:46] VITALS: BP 155/90
--- NOTE | 2020-05-27 16:50 | NUR ---
WOUND PHOTO OBTAINED OF 2ND LEFT TOE.
[2020-05-27] MEDS ORDERED: OPTISON 3ml Vial for INJ IV ONE (17:48)
--- NOTE | 2020-05-27 18:08 | NUR ---
SUPA LANDIN states they want to leave the floor Against Medical Advice (AMA) to go outside and smoke. Patient encouraged to stay on floor and not smoke. Dr notified of patient's wishes. Patient advised of the risks and benefits of leaving AMA. Patient verbalized understanding and signed required AMA form.
--- NOTE | 2020-05-27 18:49 | NUR ---
CLOSING NOTE: NO S/S OF DISTRESS. CARE ENDORSED.
--- NOTE | 2020-05-27 19:25 | NUR ---
Opening Shift Note Assumed care of patient, awake and alert. No S/S of distress/SOB or pain. Patient eating dinner. Instructed on POC and to call for assist PRN, will continue to monitor for changes Q1hr and PRN.
[2020-05-27 20:00] VITALS: BP 156/96
[2020-05-27] MEDS: SODIUM CHLORIDE 0.9% 2,000 ML IV SCH (21:15)
[2020-05-27] MEDS: ATORVASTATIN 20 MG TAB PO SCH (21:50)
[2020-05-27] MEDS ORDERED: ATORVASTATIN 20 MG TAB PO SCH (22:00)
[2020-05-27 22:22] VITALS: BP 156/96
[2020-05-28 05:35] VITALS: BP 107/66
[2020-05-28 06:20] LABS: Basophils # (auto) 0 10 ^3/uL (0-0.2); Basophils % (auto) 0.3 % (0.0-2.0); Eosinophils # (auto) 0.1 10 ^3/uL (0-0.8); Eosinophils % (auto) 1.8 % (0.0-7.0); Hematocrit 34.9 % (41.0-53.0); Lymphocytes # (auto) 1.7 10 ^3/uL (0.4-5.4); Lymphocytes % (auto) 24.4 % (10.0-50.0); Mean Corpuscular Hemoglobin 29.4 pg (28.0-32.0); Mean Corpuscular Hgb Conc. 34.3 g/dL (32.0-36.0); Monocytes # (auto) 0.7 10 ^3/uL (0-1.3); Monocytes % (auto) 10.4 % (0.0-12.0); Neutrophils # (auto) 4.3 10 ^3/uL (1.6-8.6); Neutrophils % (auto) 63.1 % (37.0-80.0); Platelet Count (auto) 302 10^3/uL (140-450); Red Blood Cells 4.06 10^6/uL (4.5-5.90); Red Cell Distribution Width 12.5 % (11.8-14.3); White Blood Cell 6.9 10^3/uL (4.4-10.8)
[2020-05-28] MEDS: ACCU-CHEK COMFORT CURVE STRIP VI SCH ×4 (06:32→21:43)
[2020-05-28] MEDS: InsuLIN REG 1unit/0.01ml Soln (100units/ml) SC SCH ×4 (06:33→21:43)
[2020-05-28 06:41] LABS: Potassium 3.6 mmol/L (3.5-5.1)
[2020-05-28 06:52] LABS: BUN/Creatinine Ratio 14.3; Calcium 8.6 mg/dL (8.5-10.1)
--- NOTE | 2020-05-28 07:30 | NUR ---
Opening Shift Note: Assumed care of patient, awake and alert. No S/S of distress/SOB or pain. Bed in lowest locked position, side rails up x 2, call light within reach.. Patient instructed on POC and to call for assist PRN, will continue to monitor for changes Q1hr and PRN.
--- NOTE | 2020-05-28 08:47 | NUR ---
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 NO DISTRESS NOTED.
[2020-05-28 09:00] VITALS: BP 129/85
[2020-05-28] MEDS ORDERED: VERAPAMIL 2.5MG/ML INJ 2ML VIAL IV ONE (09:05)
[2020-05-28] MEDS ORDERED: fentaNYL CITRATE 100 MCG/2 ML VL ONE (09:05)
[2020-05-28] MEDS ORDERED: HEPARIN SODIUM (PORCINE) 5000 UNITS/ML 1ML VIAL ONE (09:05)
[2020-05-28] MEDS ORDERED: ANGIOMAX 250 MG VIAL IV ONE (09:05)
[2020-05-28] MEDS ORDERED: MIDAZOLAM HCL 1MG/1ML-2 ML VIAL ONE (09:05)
[2020-05-28] MEDS ORDERED: LIDOCAINE 2%HCL (LOCAL ANESTH.) INJ 20ML MDV ONE (09:06)
[2020-05-28] MEDS ORDERED: SODIUM CHL 0.9% 50 ML ONE (09:06)
[2020-05-28] MEDS ORDERED: IODIXANOL 320MG/ML 100ML BTL IV ONE (09:07)
[2020-05-28] MEDS ORDERED: TICAGRELOR 90 MG TAB ONE (09:45)
[2020-05-28] MEDS ORDERED: ASPirin 325 MG TAB ONE (09:47)
--- NOTE | 2020-05-28 09:59 | NUR ---
Patient brought to recovery via bed, report received from Chalino RN and MARIO Bullard. Pt is AO x4, NAD noted. Left radial site is benign, no s/s of bleeding or hematoma formation. Vasc Band is in place, positive circulation, movement and sensation noted to BUE. Patient verbalized understanding to post-procedure care instructions.
[2020-05-28] MEDS ORDERED: amLODIPine BESYLATE 5 MG TAB PO SCH (10:00)
[2020-05-28] MEDS ORDERED: METOPROLOL SUCCINATE XL 50 MG TAB PO SCH (10:00)
[2020-05-28] MEDS ORDERED: PANTOPRAZOLE 40 MG TAB PO SCH (10:00)
--- NOTE | 2020-05-28 10:14 | NUR ---
Patient resting in bed with eyes closed. Breaths are even and unlabored. Left radial site remains unchanged. NAD noted.
--- NOTE | 2020-05-28 10:15 | NUR ---
Report given to primary RN, .
--- NOTE | 2020-05-28 10:33 | NUR ---
Patient taken to telemetry unit via bed, youth nutritional monitor in place. NAD noted upon departure. Primary RNLexi present at bedside to witness left radial site benign, no s/s of bleeding or hematoma formation. Bed set in lowest locked position with side rails up x 2, call light is within reach and bed alarm set on for safety. Care endorsed to MARIO Elliott.
--- NOTE | 2020-05-28 10:35 | NUR ---
PATIENT BACK TO UNIT FROM CLERICAL ADMINISTRATOR. NO DISTRESS UPON ARRIVAL.
--- NOTE | 2020-05-28 11:15 | NUR ---
2 ML REMOVED FROM VASBAND AT THIS TIME. NO BLEEDING NOTED, WILL CONTINUE TO MONITOR.
[2020-05-28] MEDS: METOPROLOL SUCCINATE XL 50 MG TAB PO SCH (11:17)
[2020-05-28] MEDS: PANTOPRAZOLE 40 MG TAB PO SCH (11:17)
[2020-05-28] MEDS ORDERED: LISI-275 PO (11:27)
[2020-05-28] MEDS ORDERED: ATOR20TA50 PO (11:27)
[2020-05-28] MEDS ORDERED: CLOP75TA41 PO (11:27)
[2020-05-28] MEDS ORDERED: LISINOPRIL 5 MG TAB PO ONE (11:30)
--- NOTE | 2020-05-28 11:34 | NUR ---
2 ML REMOVED FROM VASCBAND AT THIS TIME. NO BLEEDING NOTED AT THIS TIME.
--- NOTE | 2020-05-28 12:00 | NUR ---
2 ML REMOVED FROM VASCBAND. NO BLEEDING NOTED.
--- NOTE | 2020-05-28 12:20 | NUR ---
2 ML REMOVED FROM VASCBAND. NO BLEEDING NOTED
--- NOTE | 2020-05-28 12:45 | NUR ---
2 ML REMOVED FROM VASCBAND AT THIS TIME. NO BLEEDING NOTED
[2020-05-28 13:00] VITALS: BP 152/96
--- NOTE | 2020-05-28 13:07 | NUR ---
VASCBAND REMOVED. NO BLEEDING NOTED. PATIENT EDUCATED TO CALL RN IF BLEEDING OCCURS. WILL CONTINUE TO MONITOR.
[2020-05-28 17:00] VITALS: BP 132/84
[2020-05-28] MEDS: SODIUM CHLORIDE 0.9% 2,000 ML IV SCH (17:15)
--- NOTE | 2020-05-28 18:45 | NUR ---
CLOSING NOTE: PATIENT RESTING IN BED. NO S/S OF DISTRESS. CARE ENDORSED.
--- NOTE | 2020-05-28 19:55 | NUR ---
Opening Shift Note Assumed care of patient, awake and alert. No S/S of distress/SOB or pain. Patient's wrist dry and intact. Instructed on POC and to call for assist PRN, will continue to monitor for changes Q1hr and PRN.
[2020-05-28 20:00] VITALS: BP 124/74
[2020-05-28] MEDS: ATORVASTATIN 20 MG TAB PO SCH (21:43)
[2020-05-28 22:00] VITALS: BP 124/74
[2020-05-28] MEDS ORDERED: TICAGRELOR 90 MG TAB PO SCH (22:00)
[2020-05-29 05:00] VITALS: BP 122/77
[2020-05-29] MEDS: ACCU-CHEK COMFORT CURVE STRIP VI SCH (06:04)
[2020-05-29] MEDS: InsuLIN REG 1unit/0.01ml Soln (100units/ml) SC SCH (06:04)
--- NOTE | 2020-05-29 07:20 | NUR ---
Opening Shift Note: Assumed care of patient, awake and alert. No S/S of distress/SOB or pain. Bed in lowest locked position, side rails up x 2, call light within reach. Patient instructed on POC and to call for assist PRN, will continue to monitor for changes Q1hr and PRN.
--- NOTE | 2020-05-29 08:00 | NUR ---
PATIENT CLEARED FOR DC BY CARDIO
[2020-05-29 08:38] VITALS: BP 113/68
[2020-05-29] MEDS: PANTOPRAZOLE 40 MG TAB PO SCH (08:58)
[2020-05-29] MEDS: METOPROLOL SUCCINATE XL 50 MG TAB PO SCH (08:59)
[2020-05-29 09:52] VITALS: BP 113/68
[2020-05-29] MEDS ORDERED: ASPirin 81 mg TAB PO SCH (10:00)
[2020-05-29] MEDS ORDERED: amLODIPine BESYLATE 5 MG TAB PO SCH (10:00)
[2020-05-29] MEDS ORDERED: CLOPIDOGREL BISULFATE 75 MG TAB PO SCH (10:00)
[2020-05-29] MEDS ORDERED: LISINOPRIL 5 MG TAB PO SCH (10:00)
--- NOTE | 2020-05-29 10:36 | NUR ---
PATIENT STATES "I HAVE PLAVIX AT HOME." PATIENT EDUCATED TO TAKE ALL MEDICATIONS PRESCRIBED.
--- NOTE | 2020-05-29 10:45 | NUR ---
PATIENT EDUCATED TO CALL PCP TO SCHEDULE AN APPOINTMENT. PATIENT STATES HE WILL CALL DR. ELLIS TO SCHEDULE FOLLOW UP APPOINTMENT.
--- NOTE | 2020-05-29 11:20 | NUR ---
DISCHARGE WOUNDS PHOTOS TAKEN
== END 2020-05-29 11:30 | disposition home or self-care (01) | DRG 175 ==
LOC: EDSEX 01:06 → EDBD 01:06 → ER 01:06 → OBSVTOIN 01:07 → TELE-WESTW 01:07 → ER 14:25 → TELE 05-28 13:41 → TELE-WESTW 05-28 13:42
PROVIDERS: ADMIT Internal Medicine; ATTEND Internal Medicine
PROC: 027135Z Dilation of Coronary Artery, Two Arteries with Two Drug-eluting Intraluminal Devices, Percutaneous Approach (ICD-10-PCS; principal; 2020-05-28)
PROC: B211YZZ Fluoroscopy of Multiple Coronary Arteries using Other Contrast (ICD-10-PCS; 2020-05-28)
PROC: 4A023N7 Measurement of Cardiac Sampling and Pressure, Left Heart, Percutaneous Approach (ICD-10-PCS; 2020-05-28)
DX: I25.110 Atherosclerotic heart disease of native coronary artery with unstable angina pectoris (principal); N17.9 Acute kidney failure, unspecified; E66.9 Obesity, unspecified; E78.5 Hyperlipidemia, unspecified; D63.8 Anemia in other chronic diseases classified elsewhere; I12.9 Hypertensive chronic kidney disease with stage 1 through stage 4 chronic kidney disease, or unspecified chronic kidney disease; N18.9 Chronic kidney disease, unspecified; E11.22 Type 2 diabetes mellitus with diabetic chronic kidney disease; Z20.828 Contact with and (suspected) exposure to other viral communicable diseases; I25.2 Old myocardial infarction; Z80.1 Family history of malignant neoplasm of trachea, bronchus and lung; Z80.3 Family history of malignant neoplasm of breast; Z80.42 Family history of malignant neoplasm of prostate; Z80.8 Family history of malignant neoplasm of other organs or systems; Z81.8 Family history of other mental and behavioral disorders; Z82.0 Family history of epilepsy and other diseases of the nervous system; Z82.3 Family history of stroke; Z82.49 Family history of ischemic heart disease and other diseases of the circulatory system; Z82.5 Family history of asthma and other chronic lower respiratory diseases; Z82.62 Family history of osteoporosis; Z83.3 Family history of diabetes mellitus; Z86.73 Personal history of transient ischemic attack (TIA), and cerebral infarction without residual deficits; Z95.5 Presence of coronary angioplasty implant and graft; Z68.29 Body mass index [BMI] 29.0-29.9, adult
CPT/HCPCS: 36415; 71045; 80048; 80053; 82962; 83880; 84484; 85025; 85610; 85730; 86850; 86900; 86901; 87426; 93005; 93306; 96361; 96374; 96375; 96376; 99152; 99153; C1874; G0378; J1815; J2250; J2405; Q9956; Q9967

== ENCOUNTER 2020-11-10 00:21 | Inpatient (IN) | payer MEDICAID ==
[~2020-11-10] VITALS: Ht 167.6 cm; Wt 79.0 kg
[~2020-11-10 00:21] MED LIST changes: -CLOP75TA41 PO; +CLOP75TA70 PO; +LISI-275 PO
[2020-11-10] MEDS ORDERED: ONDANSETRON HCL 4 MG/2 ML VIAL IV ONE ×2 (01:00)
[2020-11-10] MEDS ORDERED: MORPHINE SULF INJ 2 MG/ML SYRINGE 1ML IV ONE ×2 (01:00)
[2020-11-10 01:08] LABS: Basophils # (auto) 0.1 10 ^3/uL (0-0.2); Basophils % (auto) 1.4 % (0.0-2.0); Eosinophils # (auto) 0.1 10 ^3/uL (0-0.8); Eosinophils % (auto) 2.1 % (0.0-7.0); Hematocrit 33.2 % (41.0-53.0); Hemoglobin 11.5 g/dL (13.5-17.5); Lymphocytes % (auto) 30.7 % (10.0-50.0); Mean Corpuscular Hemoglobin 29.2 pg (28.0-32.0); Mean Corpuscular Hgb Conc. 34.6 g/dL (32.0-36.0); Mean Corpuscular Volume 84.4 fL (80.0-100.0); Monocytes # (auto) 0.8 10 ^3/uL (0-1.3); Monocytes % (auto) 12.3 % (0.0-12.0); Neutrophils # (auto) 3.4 10 ^3/uL (1.6-8.6); Neutrophils % (auto) 53.5 % (37.0-80.0); Platelet Count (auto) 341 10^3/uL (140-450); Red Blood Cells 3.93 10^6/uL (4.5-5.90); Red Cell Distribution Width 12.8 % (11.8-14.3); White Blood Cell 6.4 10^3/uL (4.4-10.8)
[2020-11-10 01:25] LABS: Albumin 3.2 g/dL (3.4-5.0); Anion Gap 9 (5-15); Blood Urea Nitrogen 15 mg/dL (7-18); Calcium 8.6 mg/dL (8.5-10.1); Carbon Dioxide 25 mmol/L (21-32); Chloride 106 mmol/L (98-107); Glucose 211 mg/dL (74-106); Magnesium 1.9 mg/dL (1.6-2.6); Potassium 3.5 mmol/L (3.5-5.1); Sodium 140 mmol/L (136-145)
[2020-11-10 01:30] LABS: Alanine Aminotransferase 19 U/L (16-61); Alkaline Phosphatase 100 U/L (45-117); Aspartate Aminotransferase 15 U/L (15-37); BUN/Creatinine Ratio 12.5; Bilirubin, Total 0.3 mg/dL (0.2-1.0); GFR African American 82 mL/min; GFR Non-African American 68 mL/min; Total Protein 7.4 g/dL (6.4-8.2)
[2020-11-10] MEDS ORDERED: ACETAMINOPHEN 500 MG TAB PO PRN (06:30)
[2020-11-10] MEDS ORDERED: NITROGLYCERIN 0.4 MG SL TAB SL PRN (06:30)
[2020-11-10] MEDS ORDERED: ONDANSETRON HCL 4 MG/2 ML VIAL IV PRN (06:30)
[2020-11-10] MEDS ORDERED: DEXTROSE (50%) 50ML SYRG IV PRN (06:30)
[2020-11-10] MEDS ORDERED: MORPHINE SULF INJ 2 MG/ML SYRINGE 1ML IV PRN ×2 (06:30)
[2020-11-10] MEDS: InsuLIN REG 1unit/0.01ml Soln (100units/ml) SC SCH ×2 (06:48→11:30)
[2020-11-10] MEDS: ACCU-CHEK COMFORT CURVE STRIP VI SCH ×2 (06:48→11:55)
[2020-11-10] MEDS ORDERED: ASPirin 81 mg TAB PO SCH (10:00)
[2020-11-10] MEDS ORDERED: CLOPIDOGREL BISULFATE 75 MG TAB PO SCH (10:00)
[2020-11-10] MEDS ORDERED: PANTOPRAZOLE 40 MG TAB PO SCH (10:00)
[2020-11-10] MEDS ORDERED: METOPROLOL SUCCINATE XL 50 MG TAB PO SCH (10:00)
[2020-11-10 12:54] VITALS: BP 144/86
[2020-11-10 16:24] VITALS: BP 156/91
[2020-11-10] MEDS ORDERED: ATORVASTATIN 20 MG TAB PO SCH (22:00)
[2020-11-10] MEDS ORDERED: InsuLIN REG 1unit/0.01ml Soln (100units/ml) SC SCH (22:00)
== END 2020-11-10 17:51 | disposition home or self-care (01) | DRG 198 ==
LOC: ER 00:21 → EDBD 00:21 → TELE 06:21 → TELE-CENTR 11:17
PROVIDERS: ADMIT Hospitalist; ATTEND Hospitalist
DX: R07.9 Chest pain, unspecified (principal); I25.10 Atherosclerotic heart disease of native coronary artery without angina pectoris; Z20.822 Contact with and (suspected) exposure to COVID-19; D63.8 Anemia in other chronic diseases classified elsewhere; E11.9 Type 2 diabetes mellitus without complications; E78.5 Hyperlipidemia, unspecified; E78.00 Pure hypercholesterolemia, unspecified; I10 Essential (primary) hypertension; Z90.49 Acquired absence of other specified parts of digestive tract; Z79.899 Other long term (current) drug therapy; I25.2 Old myocardial infarction; Z80.1 Family history of malignant neoplasm of trachea, bronchus and lung; Z80.3 Family history of malignant neoplasm of breast; Z80.42 Family history of malignant neoplasm of prostate; Z80.8 Family history of malignant neoplasm of other organs or systems; Z81.8 Family history of other mental and behavioral disorders; Z82.0 Family history of epilepsy and other diseases of the nervous system; Z82.3 Family history of stroke; Z82.49 Family history of ischemic heart disease and other diseases of the circulatory system; Z82.5 Family history of asthma and other chronic lower respiratory diseases; Z82.62 Family history of osteoporosis; Z83.3 Family history of diabetes mellitus; Z86.73 Personal history of transient ischemic attack (TIA), and cerebral infarction without residual deficits; Z95.5 Presence of coronary angioplasty implant and graft
CPT/HCPCS: 36415; 71045; 80053; 82962; 83735; 83880; 84484; 85025; 87426; 93005; 96374; G0378

== ENCOUNTER 2020-12-31 21:07 | Emergency (ER) | payer MEDICAID ==
[~2020-12-31] VITALS: Ht 175.3 cm; Wt 81.6 kg
[~2020-12-31 21:07] MED LIST changes: -METO-169 PO; +METO-289 PO
[2020-12-31 22:41] LABS: Basophils # (auto) 0 10 ^3/uL (0-0.2); Basophils % (auto) 0.7 % (0.0-2.0); Eosinophils # (auto) 0.1 10 ^3/uL (0-0.8); Eosinophils % (auto) 0.9 % (0.0-7.0); Hematocrit 32.3 % (41.0-53.0); Hemoglobin 11.3 g/dL (13.5-17.5); Lymphocytes # (auto) 1.6 10 ^3/uL (0.4-5.4); Mean Corpuscular Hemoglobin 28.6 pg (28.0-32.0); Mean Corpuscular Hgb Conc. 35.1 g/dL (32.0-36.0); Mean Corpuscular Volume 81.4 fL (80.0-100.0); Monocytes # (auto) 0.7 10 ^3/uL (0-1.3); Monocytes % (auto) 9.2 % (0.0-12.0); Neutrophils # (auto) 4.8 10 ^3/uL (1.6-8.6); Neutrophils % (auto) 66.2 % (37.0-80.0); Platelet Count (auto) 355 10^3/uL (140-450); Red Blood Cells 3.97 10^6/uL (4.5-5.90); Red Cell Distribution Width 12.8 % (11.8-14.3); White Blood Cell 7.2 10^3/uL (4.4-10.8)
[2020-12-31 23:01] LABS: Albumin 3.3 g/dL (3.4-5.0); Anion Gap 7 (5-15); Blood Urea Nitrogen 19 mg/dL (7-18); Calcium 8.4 mg/dL (8.5-10.1); Carbon Dioxide 25 mmol/L (21-32); Chloride 107 mmol/L (98-107); Glucose 243 mg/dL (74-106); Potassium 3.6 mmol/L (3.5-5.1); Sodium 139 mmol/L (136-145)
[2020-12-31 23:03] LABS: Alanine Aminotransferase 18 U/L (16-61); Aspartate Aminotransferase 14 U/L (15-37); BUN/Creatinine Ratio 14.7; GFR African American 75 mL/min; GFR Non-African American 62 mL/min
[2020-12-31 23:08] LABS: Alkaline Phosphatase 102 U/L (45-117); Bilirubin, Total 0.2 mg/dL (0.2-1.0); Total Protein 7.5 g/dL (6.4-8.2)
[2021-01-01 04:00] VITALS: BP 171/94
== END 2021-01-01 04:04 | disposition home or self-care (01) ==
LOC: ER 21:07 → EDBD 21:07 → ER 01-01 04:04
DX: I24.9 Acute ischemic heart disease, unspecified (principal); E11.9 Type 2 diabetes mellitus without complications; I10 Essential (primary) hypertension; E78.5 Hyperlipidemia, unspecified; Z90.49 Acquired absence of other specified parts of digestive tract; Z79.899 Other long term (current) drug therapy
CPT/HCPCS: 36415; 71045; 80053; 84484; 85025; 93005

== ENCOUNTER 2021-03-18 19:48 | Emergency (ER) | payer MEDICAID ==
[~2021-03-18] VITALS: Ht 170.2 cm; Wt 81.6 kg
[2021-03-18 22:17] LABS: Basophils # (auto) 0 10 ^3/uL (0-0.2); Basophils % (auto) 0.6 % (0.0-2.0); Eosinophils # (auto) 0.1 10 ^3/uL (0-0.8); Eosinophils % (auto) 1.4 % (0.0-7.0); Hematocrit 36.3 % (41.0-53.0); Hemoglobin 12.6 g/dL (13.5-17.5); Lymphocytes # (auto) 1.8 10 ^3/uL (0.4-5.4); Lymphocytes % (auto) 24.3 % (10.0-50.0); Mean Corpuscular Hgb Conc. 34.7 g/dL (32.0-36.0); Mean Corpuscular Volume 83.4 fL (80.0-100.0); Monocytes # (auto) 0.8 10 ^3/uL (0-1.3); Monocytes % (auto) 11.7 % (0.0-12.0); Neutrophils # (auto) 4.5 10 ^3/uL (1.6-8.6); Red Blood Cells 4.35 10^6/uL (4.5-5.90); Red Cell Distribution Width 14.1 % (11.8-14.3); White Blood Cell 7.3 10^3/uL (4.4-10.8)
[2021-03-18 22:33] LABS: Chloride 108 mmol/L (98-107); Potassium 4.1 mmol/L (3.5-5.1); Sodium 139 mmol/L (136-145)
[2021-03-18 22:35] LABS: Albumin 3.5 g/dL (3.4-5.0); Amylase 52 U/L (25-115); Anion Gap 6 (5-15); BUN/Creatinine Ratio 20.4; Blood Urea Nitrogen 23 mg/dL (7-18); Calcium 8.3 mg/dL (8.5-10.1); Carbon Dioxide 25 mmol/L (21-32); GFR African American 88 mL/min; GFR Non-African American 72 mL/min; Glucose 104 mg/dL (74-106); Lipase 124 U/L (73-393); Magnesium 2.2 mg/dL (1.6-2.6)
[2021-03-18 22:50] LABS: Alanine Aminotransferase 21 U/L (16-61); Alkaline Phosphatase 98 U/L (45-117); Aspartate Aminotransferase 29 U/L (15-37); Bilirubin, Total 0.5 mg/dL (0.2-1.0); Total Protein 7.7 g/dL (6.4-8.2)
[2021-03-19] MEDS ORDERED: LIDOCAINE 5% TOPICAL PATCH TOP ONE (02:45)
[2021-03-19] MEDS ORDERED: IOHEXOL 350 MG/ML 100ML IJ ONE (02:46)
[2021-03-19] MEDS ORDERED: LABETALOL HCL 5 MG/ML 4ML SYRINGE IV ONE (03:15)
[2021-03-19] MEDS ORDERED: HYDROcodone-ACET 5/325MG TAB PO ONE (05:30)
[2021-03-19 06:01] VITALS: BP 143/78
== END 2021-03-19 06:43 | disposition home or self-care (01) ==
LOC: ER 19:49
DX: R10.11 Right upper quadrant pain (principal); R11.2 Nausea with vomiting, unspecified; I25.10 Atherosclerotic heart disease of native coronary artery without angina pectoris; E78.5 Hyperlipidemia, unspecified; I25.2 Old myocardial infarction; I12.9 Hypertensive chronic kidney disease with stage 1 through stage 4 chronic kidney disease, or unspecified chronic kidney disease; E11.22 Type 2 diabetes mellitus with diabetic chronic kidney disease; N18.9 Chronic kidney disease, unspecified; Z90.49 Acquired absence of other specified parts of digestive tract; Z79.899 Other long term (current) drug therapy
CPT/HCPCS: 36415; 71046; 71275; 76705; 80053; 82150; 83605; 83690; 83735; 84484; 85025; 85379; 96374; 99285; J3490; Q9967; 93005

== ENCOUNTER 2021-03-29 13:58 | Emergency (ER) | payer MEDICAID ==
[~2021-03-29] VITALS: Ht 170.2 cm; Wt 81.6 kg
[2021-03-29 16:08] VITALS: BP 140/79
== END 2021-03-29 16:57 | disposition home or self-care (01) ==
LOC: ER 13:58
DX: S39.012A Strain of muscle, fascia and tendon of lower back, initial encounter (principal); S50.02XA Contusion of left elbow, initial encounter; I12.9 Hypertensive chronic kidney disease with stage 1 through stage 4 chronic kidney disease, or unspecified chronic kidney disease; E11.22 Type 2 diabetes mellitus with diabetic chronic kidney disease; N18.9 Chronic kidney disease, unspecified; E78.5 Hyperlipidemia, unspecified; I25.2 Old myocardial infarction; I25.10 Atherosclerotic heart disease of native coronary artery without angina pectoris; Z90.49 Acquired absence of other specified parts of digestive tract; Z79.01 Long term (current) use of anticoagulants; Z79.899 Other long term (current) drug therapy; W01.0XXA Fall on same level from slipping, tripping and stumbling without subsequent striking against object, initial encounter; Y93.89 Activity, other specified; Y92.89 Other specified places as the place of occurrence of the external cause; Y99.8 Other external cause status
CPT/HCPCS: 72100

== ENCOUNTER 2021-06-22 03:04 | Inpatient (IN) | payer MEDICAID ==
[~2021-06-22] VITALS: Ht 180.3 cm; Wt 84.0 kg
[2021-06-22 03:55] LABS: Basophils # (auto) 0.1 10 ^3/uL (0-0.2); Basophils % (auto) 0.7 % (0.0-2.0); Eosinophils # (auto) 0.1 10 ^3/uL (0-0.8); Hematocrit 35.7 % (41.0-53.0); Hemoglobin 12.3 g/dL (13.5-17.5); Lymphocytes # (auto) 1.4 10 ^3/uL (0.4-5.4); Lymphocytes % (auto) 14.5 % (10.0-50.0); Mean Corpuscular Hemoglobin 29.3 pg (28.0-32.0); Mean Corpuscular Hgb Conc. 34.5 g/dL (32.0-36.0); Mean Corpuscular Volume 85.1 fL (80.0-100.0); Monocytes # (auto) 0.9 10 ^3/uL (0-1.3); Neutrophils # (auto) 6.9 10 ^3/uL (1.6-8.6); Neutrophils % (auto) 73.8 % (37.0-80.0); Red Cell Distribution Width 13.3 % (11.8-14.3); White Blood Cell 9.4 10^3/uL (4.4-10.8)
[2021-06-22 04:08] LABS: Albumin 3.3 g/dL (3.4-5.0); BUN/Creatinine Ratio 16.2; Calcium 8.6 mg/dL (8.5-10.1); Magnesium 2.5 mg/dL (1.6-2.6); Potassium 3.4 mmol/L (3.5-5.1)
[2021-06-22 04:13] LABS: Bilirubin, Total 0.3 mg/dL (0.2-1.0); Total Protein 7.6 g/dL (6.4-8.2)
[2021-06-22] MEDS ORDERED: MORPHINE SULFATE INJECTION 2 MG/ML SYRG IV ONE (04:30)
[2021-06-22] MEDS ORDERED: ONDANSETRON HCL 4 MG/2 ML VIAL IV ONE (04:30)
[2021-06-22 04:52] LABS: INR 0.99 (0.9-1.15); Partial Thromboplastin Time 22.8 sec (23.6-33.0)
[2021-06-22] MEDS ORDERED: HYDROcodone-ACET 5/325MG TAB PO PRN (09:30)
[2021-06-22] MEDS ORDERED: MORPHINE SULFATE INJECTION 2 MG/ML SYRG IV PRN ×2 (09:30)
[2021-06-22] MEDS ORDERED: NITROGLYCERIN 0.4 MG SL TAB SL PRN (09:30)
[2021-06-22] MEDS ORDERED: ACETAMINOPHEN 325 MG TAB PO PRN (09:30)
[2021-06-22] MEDS ORDERED: DEXTROSE (50%) 50ML SYRG IV PRN (09:30)
[2021-06-22] MEDS ORDERED: ONDANSETRON HCL 4 MG/2 ML VIAL IV PRN (09:30)
[2021-06-22] MEDS ORDERED: PANTOPRAZOLE 40 MG TAB PO SCH (10:00)
[2021-06-22] MEDS ORDERED: METOPROLOL SUCCINATE XL 50 MG TAB PO SCH (10:00)
[2021-06-22] MEDS ORDERED: LISINOPRIL 5 MG TAB PO SCH (10:00)
[2021-06-22] MEDS ORDERED: CLOPIDOGREL BISULFATE 75 MG TAB PO SCH (10:00)
[2021-06-22] MEDS: InsuLIN REG 1unit/0.01ml Soln (100units/ml) SC SCH ×2 (11:30→17:00)
[2021-06-22] MEDS: ACCU-CHEK COMFORT CURVE STRIP VI SCH ×2 (11:42→17:00)
[2021-06-22 12:30] VITALS: BP 162/97
[2021-06-22 17:00] VITALS: BP 163/97
[2021-06-22] MEDS ORDERED: ATORVASTATIN 20 MG TAB PO SCH (22:00)
== END 2021-06-22 20:07 | disposition home health service (06) | DRG 198 ==
LOC: ER 03:04 → EDBD 03:04 → TELE 09:21 → TELE-WESTW 12:29
PROVIDERS: ADMIT Internal Medicine; ATTEND Internal Medicine
DX: R07.89 Other chest pain (principal); I25.119 Atherosclerotic heart disease of native coronary artery with unspecified angina pectoris; E11.9 Type 2 diabetes mellitus without complications; E78.5 Hyperlipidemia, unspecified; I10 Essential (primary) hypertension; Z20.822 Contact with and (suspected) exposure to COVID-19; K21.9 Gastro-esophageal reflux disease without esophagitis; I25.2 Old myocardial infarction; Z80.1 Family history of malignant neoplasm of trachea, bronchus and lung; Z80.3 Family history of malignant neoplasm of breast; Z80.42 Family history of malignant neoplasm of prostate; Z80.8 Family history of malignant neoplasm of other organs or systems; Z81.8 Family history of other mental and behavioral disorders; Z82.0 Family history of epilepsy and other diseases of the nervous system; Z82.3 Family history of stroke; Z82.49 Family history of ischemic heart disease and other diseases of the circulatory system; Z82.5 Family history of asthma and other chronic lower respiratory diseases; Z82.62 Family history of osteoporosis; Z83.3 Family history of diabetes mellitus; Z95.5 Presence of coronary angioplasty implant and graft; Z90.49 Acquired absence of other specified parts of digestive tract
CPT/HCPCS: 36415; 71045; 80053; 82565; 82962; 83735; 83880; 84443; 84484; 85025; 85610; 85730; 87426; 93005; 93306; 96374; 96375; G0378; J2405

== ENCOUNTER 2021-12-20 00:25 | Emergency (ER) | payer MEDICAID ==
[~2021-12-20] VITALS: Ht 167.6 cm; Wt 83.0 kg
[2021-12-20 00:26] VITALS: BP 160/85
[2021-12-20 01:48] LABS: Basophils # (auto) 0.1 10 ^3/uL (0-0.2); Basophils % (auto) 0.6 % (0.0-2.0); Eosinophils # (auto) 0 10 ^3/uL (0-0.8); Eosinophils % (auto) 0.4 % (0.0-7.0); Hematocrit 34.8 % (41.0-53.0); Hemoglobin 12.1 g/dL (13.5-17.5); Lymphocytes # (auto) 1.6 10 ^3/uL (0.4-5.4); Lymphocytes % (auto) 18.4 % (10.0-50.0); Mean Corpuscular Hemoglobin 28.9 pg (28.0-32.0); Mean Corpuscular Hgb Conc. 34.8 g/dL (32.0-36.0); Mean Corpuscular Volume 83.3 fL (80.0-100.0); Monocytes # (auto) 0.8 10 ^3/uL (0-1.3); Monocytes % (auto) 9.3 % (0.0-12.0); Neutrophils # (auto) 6.2 10 ^3/uL (1.6-8.6); Neutrophils % (auto) 71.3 % (37.0-80.0); Nucleated Red Blood Cells % 0.1 %; Red Blood Cells 4.18 10^6/uL (4.5-5.90); Red Cell Distribution Width 13.2 % (11.8-14.3); White Blood Cell 8.8 10^3/uL (4.4-10.8)
[2021-12-20 02:01] LABS: Albumin 3.8 g/dL (3.4-5.0); BUN/Creatinine Ratio 13.8; Calcium 9.2 mg/dL (8.5-10.1); Magnesium 2.4 mg/dL (1.6-2.6); Potassium 3.7 mmol/L (3.5-5.1)
[2021-12-20 02:04] LABS: Bilirubin, Total 0.5 mg/dL (0.2-1.0); Total Protein 7.5 g/dL (6.4-8.2)
== END 2021-12-20 05:48 | disposition left against medical advice (07) ==
LOC: ER 00:25
DX: R07.89 Other chest pain (principal); Z53.21 Procedure and treatment not carried out due to patient leaving prior to being seen by health care provider
CPT/HCPCS: 36415; 71045; 80053; 83735; 83880; 84443; 84484; 85025; 93005

== ENCOUNTER 2021-12-31 22:28 | Inpatient (IN) | payer MEDICAID ==
[~2021-12-31] VITALS: Ht 170.2 cm; Wt 82.5 kg
[2021-12-31 23:17] LABS: Basophils # (auto) 0 10 ^3/uL (0-0.2); Basophils % (auto) 0.5 % (0.0-2.0); Eosinophils # (auto) 0.1 10 ^3/uL (0-0.8); Eosinophils % (auto) 1.9 % (0.0-7.0); Hematocrit 33.4 % (41.0-53.0); Hemoglobin 11.9 g/dL (13.5-17.5); Lymphocytes # (auto) 1.8 10 ^3/uL (0.4-5.4); Lymphocytes % (auto) 26.6 % (10.0-50.0); Mean Corpuscular Hemoglobin 29.8 pg (28.0-32.0); Mean Corpuscular Hgb Conc. 35.7 g/dL (32.0-36.0); Mean Corpuscular Volume 83.3 fL (80.0-100.0); Monocytes # (auto) 0.7 10 ^3/uL (0-1.3); Monocytes % (auto) 10.8 % (0.0-12.0); Neutrophils % (auto) 60.2 % (37.0-80.0); Red Blood Cells 4.01 10^6/uL (4.5-5.90); White Blood Cell 6.7 10^3/uL (4.4-10.8)
[2021-12-31 23:34] LABS: Albumin 3.2 g/dL (3.4-5.0); Potassium 3.8 mmol/L (3.5-5.1)
[2021-12-31 23:36] LABS: BUN/Creatinine Ratio 13.8
[2021-12-31 23:38] LABS: Bilirubin, Total 0.4 mg/dL (0.2-1.0); Total Protein 6.8 g/dL (6.4-8.2)
[2022-01-01] MEDS ORDERED: KETOROLAC TROMETH 30 MG/ML 1ML VIAL IV ONE (01:15)
[2022-01-01] MEDS ORDERED: NITROGLYCERIN 0.4 MG SL TAB SL PRN (01:45)
[2022-01-01] MEDS ORDERED: DEXTROSE (50%) 50ML SYRG IV PRN (01:45)
[2022-01-01] MEDS ORDERED: hydrALAZINE HCL 10 MG TAB PO PRN (01:45)
[2022-01-01] MEDS ORDERED: HYDROcodone-ACET 5/325MG TAB PO PRN (01:45)
[2022-01-01] MEDS ORDERED: MORPHINE SULFATE INJ 2 MG/ml SYRG IV PRN (01:45)
[2022-01-01] MEDS ORDERED: ACETAMINOPHEN 325 MG TAB PO PRN (01:45)
[2022-01-01] MEDS ORDERED: ENOXAPARIN SOD 100 MG/1 ML SYRINGE SC SCH (01:45)
[2022-01-01] MEDS: ENOXAPARIN SOD 80 MG/0.8ML SYRINGE SC SCH ×3 (02:32→21:46)
[2022-01-01 02:54] LABS: Urine Bacteria NONE SEEN /hpf (None Seen); Urine Blood Negative /uL (Negative); Urine Specific Gravity 1.007 (1.001-1.035); Urine WBC <1 /hpf (0 - 3)
[2022-01-01] MEDS ORDERED: ONDANSETRON HCL 4 MG/2 ML VIAL IV PRN (06:15)
[2022-01-01] MEDS: ACCU-CHEK COMFORT CURVE STRIP VI SCH ×4 (06:27→21:41)
[2022-01-01] MEDS: InsuLIN REG 1unit/0.01ml Soln (100units/ml) SC SCH ×4 (06:35→21:45)
[2022-01-01 06:55] LABS: Basophils # (auto) 0 10 ^3/uL (0-0.2); Basophils % (auto) 0.8 % (0.0-2.0); Eosinophils # (auto) 0.1 10 ^3/uL (0-0.8); Eosinophils % (auto) 1.9 % (0.0-7.0); Hematocrit 38.2 % (41.0-53.0); Hemoglobin 13.7 g/dL (13.5-17.5); Lymphocytes # (auto) 1.7 10 ^3/uL (0.4-5.4); Lymphocytes % (auto) 25.7 % (10.0-50.0); Mean Corpuscular Hemoglobin 29.9 pg (28.0-32.0); Mean Corpuscular Hgb Conc. 35.7 g/dL (32.0-36.0); Mean Corpuscular Volume 83.8 fL (80.0-100.0); Monocytes # (auto) 0.7 10 ^3/uL (0-1.3); Monocytes % (auto) 11.1 % (0.0-12.0); Neutrophils # (auto) 3.9 10 ^3/uL (1.6-8.6); Neutrophils % (auto) 60.5 % (37.0-80.0); Nucleated Red Blood Cells % 0.2 %; Red Blood Cells 4.56 10^6/uL (4.5-5.90); Red Cell Distribution Width 12.7 % (11.8-14.3); White Blood Cell 6.4 10^3/uL (4.4-10.8)
[2022-01-01 07:18] LABS: BUN/Creatinine Ratio 12.4; Calcium 8.4 mg/dL (8.5-10.1); Potassium 3.5 mmol/L (3.5-5.1)
[2022-01-01 07:27] LABS: Cholesterol 141 mg/dL (< 200); HDL Cholesterol 35 mg/dL (40-59); LDL Cholesterol 84 mg/dL (< 100); Triglycerides 294 mg/dL (< 150)
[2022-01-01] MEDS ORDERED: LABETALOL HCL 5 MG/ML 4ML SYRINGE IV ONE (09:45)
[2022-01-01] MEDS: ASPirin-EC 81 mg tab PO SCH (09:54)
[2022-01-01] MEDS ORDERED: LISINOPRIL 5 MG TAB PO SCH (10:00)
[2022-01-01] MEDS ORDERED: METOPROLOL TARTRATE 50 MG TAB PO SCH (10:00)
[2022-01-01] MEDS: FAMOTIDINE 20 MG TAB PO SCH ×2 (10:55→21:45)
[2022-01-01] MEDS ORDERED: LISINOPRIL 5 MG TAB PO ONE (11:15)
[2022-01-01] MEDS ORDERED: LABETALOL HCL 5 MG/ML 4ML SYRINGE IV PRN (13:15)
[2022-01-01 18:00] VITALS: BP 126/80
[2022-01-01] MEDS: METOPROLOL TARTRATE 50 MG TAB PO SCH (21:51)
[2022-01-01 22:00] VITALS: BP 128/78
[2022-01-01] MEDS ORDERED: ATORVASTATIN 20 MG TAB PO SCH (22:00)
[2022-01-02 05:00] VITALS: BP 122/81
[2022-01-02 05:00] LABS: Basophils # (auto) 0 10 ^3/uL (0-0.2); Basophils % (auto) 0.4 % (0.0-2.0); Eosinophils # (auto) 0.1 10 ^3/uL (0-0.8); Eosinophils % (auto) 2.1 % (0.0-7.0); Hematocrit 35.9 % (41.0-53.0); Hemoglobin 12.6 g/dL (13.5-17.5); Lymphocytes # (auto) 1.9 10 ^3/uL (0.4-5.4); Mean Corpuscular Hemoglobin 29.4 pg (28.0-32.0); Mean Corpuscular Hgb Conc. 35.1 g/dL (32.0-36.0); Mean Corpuscular Volume 83.9 fL (80.0-100.0); Monocytes # (auto) 0.8 10 ^3/uL (0-1.3); Monocytes % (auto) 10.5 % (0.0-12.0); Neutrophils # (auto) 4.4 10 ^3/uL (1.6-8.6); Red Blood Cells 4.28 10^6/uL (4.5-5.90); White Blood Cell 7.2 10^3/uL (4.4-10.8)
[2022-01-02 05:29] LABS: Calcium 8.1 mg/dL (8.5-10.1); Potassium 3.8 mmol/L (3.5-5.1)
[2022-01-02] MEDS: ACCU-CHEK COMFORT CURVE STRIP VI SCH ×2 (06:11→11:32)
[2022-01-02] MEDS: InsuLIN REG 1unit/0.01ml Soln (100units/ml) SC SCH ×2 (06:19→11:30)
[2022-01-02] MEDS ORDERED: LIDOCAINE 2%HCL (LOCAL ANESTH.) INJ 10ml MDV ONE (07:27)
[2022-01-02] MEDS ORDERED: IODIXANOL 320MG/ML 100ML BTL IV ONE (07:27)
[2022-01-02] MEDS ORDERED: HEPARIN IN NS 1000Units/500mL 1,500 ML ONE (07:28)
[2022-01-02] MEDS ORDERED: fentaNYL CITRATE 100 MCG/2 ML VL ONE (07:59)
[2022-01-02] MEDS ORDERED: MIDAZOLAM HCL 2MG/2ML 2ml VIAL (1mg/ml) ONE (07:59)
[2022-01-02] MEDS ORDERED: VERAPAMIL 2.5MG/ML INJ 2ML VIAL IV ONE (07:59)
[2022-01-02] MEDS ORDERED: SODIUM CHL 0.9% 0 ML ONE (07:59)
[2022-01-02] MEDS ORDERED: ANGIOMAX 250 MG VIAL IV ONE (07:59)
[2022-01-02] MEDS ORDERED: NITROGLYCERIN 5MG/ML 10ML VIAL IV ONE (08:02)
[2022-01-02] MEDS ORDERED: HEPARIN SODIUM (PORCINE) 5000 UNITS/ML 1ML VIAL ONE (08:48)
[2022-01-02] MEDS ORDERED: LISINOPRIL 5 MG TAB PO SCH (10:00)
[2022-01-02] MEDS ORDERED: RANOLAZINE ER 500 MG TAB PO SCH (10:00)
[2022-01-02] MEDS ORDERED: CLOPIDOGREL BISULFATE 75 MG TAB PO SCH (10:00)
[2022-01-02] MEDS ORDERED: CLOP75TA70 PO (10:07)
[2022-01-02] MEDS ORDERED: RANO500T PO (10:07)
[2022-01-02] MEDS ORDERED: ASPI-543 PO (10:07)
[2022-01-02] MEDS ORDERED: MET50T PO (10:07)
[2022-01-02] MEDS ORDERED: LISI-275 PO (10:07)
[2022-01-02] MEDS: FAMOTIDINE 20 MG TAB PO SCH (11:00)
[2022-01-02] MEDS: METOPROLOL TARTRATE 50 MG TAB PO SCH (11:01)
[2022-01-02] MEDS: ASPirin-EC 81 mg tab PO SCH (11:02)
[2022-01-02 13:00] VITALS: BP 140/85
[2022-01-02 17:00] VITALS: BP 141/82
== END 2022-01-02 17:45 | disposition home health service (06) | DRG 190 ==
LOC: EDUNIT# 22:28 → EDBD 22:28 → ER 22:28 → TELE 01-01 01:41 → TELE-WESTW 01-01 17:55
PROVIDERS: ADMIT Nurse Practitioner Family; ATTEND Nurse Practitioner Family
PROC: 4A023N7 Measurement of Cardiac Sampling and Pressure, Left Heart, Percutaneous Approach (ICD-10-PCS; principal; 2022-01-02)
PROC: B211YZZ Fluoroscopy of Multiple Coronary Arteries using Other Contrast (ICD-10-PCS; 2022-01-02)
DX: I21.4 Non-ST elevation (NSTEMI) myocardial infarction (principal); I10 Essential (primary) hypertension; Z20.822 Contact with and (suspected) exposure to COVID-19; I25.10 Atherosclerotic heart disease of native coronary artery without angina pectoris; Z80.1 Family history of malignant neoplasm of trachea, bronchus and lung; Z80.3 Family history of malignant neoplasm of breast; Z80.42 Family history of malignant neoplasm of prostate; Z80.8 Family history of malignant neoplasm of other organs or systems; Z81.8 Family history of other mental and behavioral disorders; Z82.0 Family history of epilepsy and other diseases of the nervous system; Z82.3 Family history of stroke; Z82.49 Family history of ischemic heart disease and other diseases of the circulatory system; Z82.5 Family history of asthma and other chronic lower respiratory diseases; Z82.62 Family history of osteoporosis; Z83.3 Family history of diabetes mellitus; Z98.61 Coronary angioplasty status
CPT/HCPCS: 36415; 71046; 80048; 80053; 80061; 81001; 82962; 83036; 84484; 85025; 93005; 93306; 93458; 96372; 96374; 96375; 99152; 99291; G0378; J1815; J1885; J2001; J2250; J2405; J3490; Q9967

== ENCOUNTER 2022-08-15 23:00 | Inpatient (IN) | payer MEDICAID ==
[~2022-08-15] VITALS: Ht 167.6 cm; Wt 85.0 kg
[~2022-08-15 23:00] MED LIST changes: +ASPI-543 PO; +MET50T PO; -METO-289 PO; +RANO500T PO
[2022-08-16] MEDS ORDERED: ONDANSETRON HCL 4 MG/2 ML VIAL IV ONE ×2 (01:15→01:30)
[2022-08-16] MEDS ORDERED: SODIUM CHLORIDE 0.9% 1,000 ML IV ONE ×2 (01:15→01:30)
[2022-08-16] MEDS ORDERED: MORPHINE SULFATE INJ 2 MG/ml SYRG IV ONE ×2 (01:30→03:15)
[2022-08-16 01:36] LABS: Basophils # (auto) 0 10 ^3/uL (0-0.2); Basophils % (auto) 0.5 % (0.0-2.0); Eosinophils # (auto) 0.1 10 ^3/uL (0-0.8); Eosinophils % (auto) 1.7 % (0.0-7.0); Hematocrit 35.9 % (41.0-53.0); Hemoglobin 12.2 g/dL (13.5-17.5); Lymphocytes # (auto) 1.8 10 ^3/uL (0.4-5.4); Lymphocytes % (auto) 24.4 % (10.0-50.0); Mean Corpuscular Hemoglobin 28.5 pg (28.0-32.0); Monocytes # (auto) 0.9 10 ^3/uL (0-1.3); Monocytes % (auto) 11.6 % (0.0-12.0); Neutrophils # (auto) 4.6 10 ^3/uL (1.6-8.6); Neutrophils % (auto) 61.8 % (37.0-80.0); Red Blood Cells 4.27 10^6/uL (4.5-5.90); Red Cell Distribution Width 13.2 % (11.8-14.3); White Blood Cell 7.4 10^3/uL (4.4-10.8)
[2022-08-16 02:00] LABS: INR 0.93 (0.9-1.15); Partial Thromboplastin Time 26.2 sec (24.6-33.4)
[2022-08-16 02:03] LABS: Albumin 3.6 g/dL (3.4-5.0); Potassium 4.2 mmol/L (3.5-5.1)
[2022-08-16 02:11] LABS: BUN/Creatinine Ratio 15.9; Bilirubin, Total 0.3 mg/dL (0.2-1.0)
[2022-08-16] MEDS: MORPHINE SULFATE 4 MG/ML SYR/VIAL IV PRN ×2 (02:41→06:55)
[2022-08-16 03:17] LABS: Urine Bacteria NONE SEEN /hpf (None Seen); Urine Blood Negative /uL (Negative); Urine Specific Gravity 1.014 (1.001-1.035); Urine WBC 1 /hpf (0 - 3)
[2022-08-16 03:20] LABS: Alcohol, Urine < 3.0 mg/dL (0-10); Amphetamine Screen, Urine NEGATIVE (NEGATIVE); Barbiturate Scree,Urine NEGATIVE (NEGATIVE); Benzodiazephine Screen, Urine NEGATIVE (NEGATIVE); Cannabinoid Screen, Urine NEGATIVE (NEGATIVE); Cocaine Screen, Urine NEGATIVE (NEGATIVE); Opiate Scree,Urine NEGATIVE (NEGATIVE); Phencyclidine Screen, Urine NEGATIVE (NEGATIVE)
[2022-08-16] MEDS ORDERED: HYDROcodone-ACET 5/325MG TAB PO PRN (06:30)
[2022-08-16] MEDS ORDERED: NITROGLYCERIN 0.4 MG SL TAB SL PRN (06:30)
[2022-08-16] MEDS ORDERED: DEXTROSE (50%) 50ML SYRG IV PRN (06:30)
[2022-08-16] MEDS ORDERED: hydrALAZINE HCL 20 MG/ML VL IV PRN (06:30)
[2022-08-16] MEDS ORDERED: ONDANSETRON HCL 4 MG/2 ML VIAL IV PRN (06:30)
[2022-08-16] MEDS ORDERED: ACETAMINOPHEN 325 MG TAB PO PRN (06:30)
[2022-08-16] MEDS ORDERED: MORPHINE SULFATE INJ 2 MG/ml SYRG IV PRN ×2 (06:30)
[2022-08-16] MEDS ORDERED: DOCUSATE SOD 100 MG CAP PO PRN (06:30)
[2022-08-16] MEDS: InsuLIN REG 1unit/0.01ml Soln (100units/ml) SC SCH ×4 (07:00→22:00)
[2022-08-16] MEDS: ACCU-CHEK COMFORT CURVE STRIP VI SCH ×4 (07:07→22:29)
[2022-08-16 07:09] LABS: Basophils # (auto) 0 10 ^3/uL (0-0.2); Basophils % (auto) 0.5 % (0.0-2.0); Eosinophils # (auto) 0.2 10 ^3/uL (0-0.8); Eosinophils % (auto) 2.5 % (0.0-7.0); Hematocrit 36.7 % (41.0-53.0); Hemoglobin 12.7 g/dL (13.5-17.5); Lymphocytes # (auto) 2.2 10 ^3/uL (0.4-5.4); Lymphocytes % (auto) 30.6 % (10.0-50.0); Mean Corpuscular Hemoglobin 29.3 pg (28.0-32.0); Mean Corpuscular Hgb Conc. 34.7 g/dL (32.0-36.0); Mean Corpuscular Volume 84.5 fL (80.0-100.0); Monocytes # (auto) 0.9 10 ^3/uL (0-1.3); Monocytes % (auto) 12.8 % (0.0-12.0); Neutrophils # (auto) 3.9 10 ^3/uL (1.6-8.6); Neutrophils % (auto) 53.6 % (37.0-80.0); Nucleated Red Blood Cells % 0.3 %; Red Blood Cells 4.34 10^6/uL (4.5-5.90); White Blood Cell 7.3 10^3/uL (4.4-10.8)
[2022-08-16 08:13] LABS: Albumin 3.5 g/dL (3.4-5.0); Calcium 8.2 mg/dL (8.5-10.1); Potassium 3.6 mmol/L (3.5-5.1)
[2022-08-16 08:16] LABS: BUN/Creatinine Ratio 13.6; Bilirubin, Total 0.3 mg/dL (0.2-1.0)
[2022-08-16] MEDS: METOPROLOL TARTRATE 50 MG TAB PO SCH ×2 (13:26→22:30)
[2022-08-16] MEDS: ASPirin 81 mg TAB PO SCH (13:26)
[2022-08-16] MEDS: SODIUM CHLOR 0.9% PF (SALINE LOCK) 10ML VIAL/SYR IV SCH ×2 (14:27→22:30)
[2022-08-16] MEDS ORDERED: PANTOPRAZOLE 40 MG TAB PO SCH (14:30)
[2022-08-16] MEDS ORDERED: ATORVASTATIN 20 MG TAB PO SCH (22:00)
[2022-08-16] MEDS ORDERED: RANOLAZINE ER 500 MG TAB PO SCH (22:00)
[2022-08-17] MEDS: SODIUM CHLOR 0.9% PF (SALINE LOCK) 10ML VIAL/SYR IV SCH (06:19)
[2022-08-17 06:36] LABS: Basophils # (auto) 0 10 ^3/uL (0-0.2); Basophils % (auto) 0.2 % (0.0-2.0); Eosinophils # (auto) 0.1 10 ^3/uL (0-0.8); Eosinophils % (auto) 1.4 % (0.0-7.0); Hematocrit 38.4 % (41.0-53.0); Lymphocytes # (auto) 1.6 10 ^3/uL (0.4-5.4); Lymphocytes % (auto) 20.1 % (10.0-50.0); Mean Corpuscular Hemoglobin 28.6 pg (28.0-32.0); Mean Corpuscular Hgb Conc. 33.8 g/dL (32.0-36.0); Mean Corpuscular Volume 84.6 fL (80.0-100.0); Monocytes # (auto) 0.7 10 ^3/uL (0-1.3); Monocytes % (auto) 8.9 % (0.0-12.0); Neutrophils # (auto) 5.5 10 ^3/uL (1.6-8.6); Neutrophils % (auto) 69.4 % (37.0-80.0); Nucleated Red Blood Cells % 0.1 %; Red Blood Cells 4.54 10^6/uL (4.5-5.90); Red Cell Distribution Width 12.9 % (11.8-14.3)
[2022-08-17 06:41] LABS: Calcium 8.7 mg/dL (8.5-10.1); Potassium 4.1 mmol/L (3.5-5.1)
[2022-08-17 06:44] LABS: Albumin 3.3 g/dL (3.4-5.0)
[2022-08-17 06:46] LABS: Bilirubin, Total 0.6 mg/dL (0.2-1.0)
[2022-08-17] MEDS: ACCU-CHEK COMFORT CURVE STRIP VI SCH (06:58)
[2022-08-17] MEDS: InsuLIN REG 1unit/0.01ml Soln (100units/ml) SC SCH (06:59)
[2022-08-17] MEDS ORDERED: CLOPIDOGREL BISULFATE 75 MG TAB PO SCH (10:00)
[2022-08-17] MEDS: METOPROLOL TARTRATE 50 MG TAB PO SCH (10:00)
[2022-08-17] MEDS ORDERED: LISINOPRIL 5 MG TAB PO SCH (10:00)
[2022-08-17] MEDS: ASPirin 81 mg TAB PO SCH (10:21)
[2022-08-17] MEDS: RANOLAZINE ER 500 MG TAB PO SCH ×2 (10:21→10:25)
[2022-08-17] MEDS ORDERED: RANO500T PO (10:56)
[2022-08-17 11:26] VITALS: BP 131/78
== END 2022-08-17 11:30 | disposition home or self-care (01) | DRG 198 ==
LOC: ER 23:00 → EDBD 23:00 → TELE 08-16 06:44
PROVIDERS: ADMIT Nurse Practitioner Family; ATTEND Nurse Practitioner Family
DX: I24.9 Acute ischemic heart disease, unspecified (principal); E11.22 Type 2 diabetes mellitus with diabetic chronic kidney disease; I25.10 Atherosclerotic heart disease of native coronary artery without angina pectoris; E78.5 Hyperlipidemia, unspecified; I12.9 Hypertensive chronic kidney disease with stage 1 through stage 4 chronic kidney disease, or unspecified chronic kidney disease; N18.9 Chronic kidney disease, unspecified; Z20.822 Contact with and (suspected) exposure to COVID-19; K21.9 Gastro-esophageal reflux disease without esophagitis; Z80.1 Family history of malignant neoplasm of trachea, bronchus and lung; I25.2 Old myocardial infarction; Z80.3 Family history of malignant neoplasm of breast; Z80.42 Family history of malignant neoplasm of prostate; Z80.8 Family history of malignant neoplasm of other organs or systems; Z81.8 Family history of other mental and behavioral disorders; Z82.0 Family history of epilepsy and other diseases of the nervous system; Z82.3 Family history of stroke; Z82.49 Family history of ischemic heart disease and other diseases of the circulatory system; Z82.5 Family history of asthma and other chronic lower respiratory diseases; Z82.62 Family history of osteoporosis; Z83.3 Family history of diabetes mellitus; Z98.61 Coronary angioplasty status; Z90.49 Acquired absence of other specified parts of digestive tract
CPT/HCPCS: 36415; 71045; 80053; 80307; 81001; 82962; 83735; 83880; 84484; 85025; 85379; 85610; 85730; 87426; 87804; 93005; 96361; 96374; 96375; 96376; G0378; J2405

== ENCOUNTER 2023-06-12 09:40 | Inpatient (IN) | payer MEDICAID ==
[~2023-06-12] VITALS: Ht 170.2 cm; Wt 90.0 kg
[2023-06-12] MEDS ORDERED: NITROGLYCERIN 0.4 MG SL TAB SL ONE (10:30)
[2023-06-12] MEDS ORDERED: ASPirin 325 MG TAB PO ONE (10:30)
[2023-06-12 10:31] LABS: Basophils # (auto) 0 10 ^3/uL (0-0.2); Basophils % (auto) 0.5 % (0.0-2.0); Eosinophils # (auto) 0.1 10 ^3/uL (0-0.8); Eosinophils % (auto) 1.3 % (0.0-7.0); Hematocrit 40.1 % (41.0-53.0); Lymphocytes # (auto) 1.6 10 ^3/uL (0.4-5.4); Lymphocytes % (auto) 18.2 % (10.0-50.0); Mean Corpuscular Hgb Conc. 35.1 g/dL (32.0-36.0); Mean Corpuscular Volume 82.6 fL (80.0-100.0); Monocytes # (auto) 0.6 10 ^3/uL (0-1.3); Monocytes % (auto) 6.9 % (0.0-12.0); Neutrophils # (auto) 6.6 10 ^3/uL (1.6-8.6); Neutrophils % (auto) 73.1 % (37.0-80.0); Nucleated Red Blood Cells % 0.1 %; Red Blood Cells 4.85 10^6/uL (4.5-5.90); Red Cell Distribution Width 12.7 % (11.8-14.3)
[2023-06-12 10:40] LABS: Alanine Aminotransferase 28 U/L (7-40); Albumin 4.4 g/dL (3.2-4.8); Alkaline Phosphatase 155 U/L (46-116); Anion Gap 9 (5-15); Aspartate Aminotransferase 20 U/L (13-40); BUN/Creatinine Ratio 10.3 (10.0-20.0); Blood Urea Nitrogen 15 mg/dL (9-23); Carbon Dioxide 23 mmol/L (20-30); Chloride 105 mmol/L (98-107); Potassium 3.7 mmol/L (3.5-5.1); Sodium 137 mmol/L (136-145)
[2023-06-12 10:41] LABS: Bilirubin, Total 0.4 mg/dL (0.2-1.0); Total Protein 7.2 g/dL (5.7-8.2)
[2023-06-12 10:53] LABS: Glucose 444 mg/dL (74-106)
[2023-06-12] MEDS ORDERED: InsuLIN REG 1unit/0.01ml Soln (100units/ml) IV ONE (11:00)
[2023-06-12] MEDS ORDERED: SODIUM CHLORIDE 0.9% 1,000 ML IV ONE ×2 (11:00)
[2023-06-12 11:18] VITALS: BP 138/83; PULSE 87; RESP 16; TEMP 97.9; O2SAT 96
[2023-06-12 11:41] LABS: INR 0.91 (0.9-1.15); Partial Thromboplastin Time 23.7 SEC (24.5-34.5); Prothrombin Time 9.6 sec (9.3-11.8)
[2023-06-12] MEDS ORDERED: ACETAMINOPHEN 325 MG TAB PO PRN (12:15)
[2023-06-12] MEDS ORDERED: NITROGLYCERIN 0.4 MG SL TAB SL PRN (12:15)
[2023-06-12] MEDS ORDERED: PANTOPRAZOLE 40 MG TAB PO SCH (12:15)
[2023-06-12] MEDS ORDERED: MORPHINE SULFATE 4 MG/ML SYR/VIAL IV PRN (12:15)
[2023-06-12] MEDS ORDERED: ONDANSETRON HCL 4 MG/2 ML VIAL IV PRN (12:15)
[2023-06-12] MEDS ORDERED: CLOPIDOGREL BISULFATE 75 MG TAB PO SCH (12:38)
[2023-06-12] MEDS ORDERED: ENOXAPARIN SOD 100 MG/1 ML SYRINGE SC SCH (12:39)
[2023-06-12 13:10] LABS: Triglycerides 379 mg/dL (< 150)
[2023-06-12 13:11] LABS: LDL Cholesterol 68 mg/dL (< 100)
[2023-06-12 13:12] LABS: Cholesterol 163 mg/dL (< 200); HDL Cholesterol 31 mg/dL (40-59)
[2023-06-12] MEDS ORDERED: MORPHINE SULFATE INJ 2 MG/ml SYRG IV ONE (13:15)
[2023-06-12] MEDS ORDERED: ONDANSETRON HCL 4 MG/2 ML VIAL IV ONE (13:15)
[2023-06-12 13:19] LABS: INR 0.93 (0.9-1.15); Prothrombin Time 9.8 sec (9.3-11.8)
[2023-06-12] MEDS ORDERED: ATORVASTATIN 20 MG TAB PO SCH (22:00)
[2023-06-12] MEDS ORDERED: RANOLAZINE ER 500 MG TAB PO SCH (22:00)
[2023-06-12] MEDS ORDERED: METOPROLOL TARTRATE 50 MG TAB PO SCH (22:00)
[2023-06-13] MEDS ORDERED: LISINOPRIL 5 MG TAB PO SCH (10:00)
[2023-06-13] MEDS ORDERED: DOCUSATE SOD 100 MG CAP PO SCH (10:00)
[2023-06-13] MEDS ORDERED: ASPirin-EC 81 mg tab PO SCH (10:00)
== END 2023-06-12 16:22 | disposition left against medical advice (07) | DRG 198 ==
LOC: ER 09:40 → TELE 12:31
PROVIDERS: ADMIT Nurse Practitioner Family; ATTEND Nurse Practitioner Family
DX: I24.9 Acute ischemic heart disease, unspecified (principal); N17.9 Acute kidney failure, unspecified; I25.10 Atherosclerotic heart disease of native coronary artery without angina pectoris; E11.22 Type 2 diabetes mellitus with diabetic chronic kidney disease; E11.65 Type 2 diabetes mellitus with hyperglycemia; E78.5 Hyperlipidemia, unspecified; I12.9 Hypertensive chronic kidney disease with stage 1 through stage 4 chronic kidney disease, or unspecified chronic kidney disease; N18.9 Chronic kidney disease, unspecified; Z95.5 Presence of coronary angioplasty implant and graft; K21.9 Gastro-esophageal reflux disease without esophagitis; I25.2 Old myocardial infarction; Z90.49 Acquired absence of other specified parts of digestive tract; Z53.29 Procedure and treatment not carried out because of patient's decision for other reasons
CPT/HCPCS: 36415; 71045; 80053; 80061; 82010; 82962; 83036; 83690; 83735; 83880; 84484; 85025; 85610; 85730; 93005; 96361; 96374; G0378; J1815

== ENCOUNTER 2023-11-04 14:57 | Inpatient (IN) | payer MEDICAID ==
[~2023-11-04] VITALS: Ht 167.6 cm; Wt 83.9 kg
[2023-11-04 15:20] LABS: Basophils # (auto) 0 10 ^3/uL (0-0.2); Basophils % (auto) 0.4 % (0.0-2.0); Eosinophils # (auto) 0.1 10 ^3/uL (0-0.8); Eosinophils % (auto) 1.2 % (0.0-7.0); Hematocrit 39.1 % (41.0-53.0); Hemoglobin 13.2 g/dL (13.5-17.5); Lymphocytes # (auto) 1.8 10 ^3/uL (0.4-5.4); Lymphocytes % (auto) 20.1 % (10.0-50.0); Mean Corpuscular Hgb Conc. 33.7 g/dL (32.0-36.0); Mean Corpuscular Volume 86.2 fL (80.0-100.0); Monocytes # (auto) 0.6 10 ^3/uL (0-1.3); Neutrophils # (auto) 6.3 10 ^3/uL (1.6-8.6); Neutrophils % (auto) 71.3 % (37.0-80.0); Red Blood Cells 4.54 10^6/uL (4.5-5.90); Red Cell Distribution Width 12.8 % (11.8-14.3); White Blood Cell 8.8 10^3/uL (4.4-10.8)
[2023-11-04 15:37] LABS: INR 0.93 (0.9-1.15); Partial Thromboplastin Time 24.5 SEC (24.5-34.5); Prothrombin Time 9.8 sec (9.3-11.8)
[2023-11-04 15:39] LABS: Alanine Aminotransferase 26 U/L (7-40); Albumin 4.5 g/dL (3.2-4.8); Alkaline Phosphatase 133 U/L (46-116); Anion Gap 4 (5-15); Aspartate Aminotransferase 21 U/L (13-40); BUN/Creatinine Ratio 12.8 (10.0-20.0); Bilirubin, Total 0.5 mg/dL (0.2-1.0); Blood Urea Nitrogen 21 mg/dL (9-23); Calcium 9.7 mg/dL (8.5-10.1); Carbon Dioxide 29 mmol/L (20-30); Chloride 101 mmol/L (98-107); Potassium 4.4 mmol/L (3.5-5.1); Sodium 134 mmol/L (136-145); Total Protein 7.5 g/dL (5.7-8.2)
[2023-11-04 15:42] LABS: Glucose 549 mg/dL (74-106)
[2023-11-04] MEDS ORDERED: DOCUSATE SOD 100 MG CAP PO PRN (18:00)
[2023-11-04] MEDS ORDERED: DEXTROSE (50%) 50ML SYRG IV PRN (18:00)
[2023-11-04] MEDS ORDERED: ACETAMINOPHEN 325 MG TAB PO PRN (18:00)
[2023-11-04] MEDS ORDERED: NITROGLYCERIN 0.4 MG SL TAB SL PRN (18:00)
[2023-11-04] MEDS: ONDANSETRON HCL 4 MG/2 ML VIAL IV PRN (19:18)
[2023-11-04] MEDS: MORPHINE SULFATE INJ 2 MG/ml SYRG IV PRN (19:19)
[2023-11-04] MEDS: InsuLIN REG 1unit/0.01ml Soln (100units/ml) IV ONE (19:38)
[2023-11-04] MEDS: SODIUM CHLORIDE 0.9% 1,000 ML IV ONE ×2 (19:39→20:09)
[2023-11-04 19:50] VITALS: PULSE 69; RESP 21; O2SAT 96
[2023-11-04] MEDS: ACCU-CHEK COMFORT CURVE STRIP VI SCH (22:09)
[2023-11-04] MEDS: InsuLIN REG 1unit/0.01ml Soln (100units/ml) SC SCH (22:09)
[2023-11-04] MEDS: hydrALAZINE HCL 20 MG/ML VL IV ONE (22:15)
[2023-11-04] MEDS ORDERED: hydrALAZINE HCL 20 MG/ML VL IV PRN (22:45)
[2023-11-04] MEDS: METOPROLOL TARTRATE 50 MG TAB PO ONE (23:09)
[2023-11-05] VITALS (8 sets, daily range): BP systolic 107–150; BP diastolic 55–89; PULSE 64–78; RESP 16–18; TEMP 97.4–98.3; O2SAT 93–98
[2023-11-05] MEDS: InsuLIN REG 1unit/0.01ml Soln (100units/ml) SC SCH (06:18)
[2023-11-05 06:57] LABS: Basophils # (auto) 0 10 ^3/uL (0-0.2); Basophils % (auto) 0.3 % (0.0-2.0); Eosinophils # (auto) 0.1 10 ^3/uL (0-0.8); Hematocrit 33.2 % (41.0-53.0); Hemoglobin 11.3 g/dL (13.5-17.5); Lymphocytes # (auto) 1.9 10 ^3/uL (0.4-5.4); Lymphocytes % (auto) 27.2 % (10.0-50.0); Mean Corpuscular Hemoglobin 28.9 pg (28.0-32.0); Mean Corpuscular Hgb Conc. 34.1 g/dL (32.0-36.0); Mean Corpuscular Volume 84.6 fL (80.0-100.0); Monocytes # (auto) 0.6 10 ^3/uL (0-1.3); Monocytes % (auto) 9.2 % (0.0-12.0); Neutrophils # (auto) 4.2 10 ^3/uL (1.6-8.6); Neutrophils % (auto) 61.3 % (37.0-80.0); Nucleated Red Blood Cells % 0.1 %; Red Blood Cells 3.92 10^6/uL (4.5-5.90); Red Cell Distribution Width 12.7 % (11.8-14.3); White Blood Cell 6.9 10^3/uL (4.4-10.8)
[2023-11-05 07:13] LABS: Alanine Aminotransferase 21 U/L (7-40); Albumin 3.7 g/dL (3.2-4.8); Alkaline Phosphatase 82 U/L (46-116); Anion Gap 4 (5-15); Aspartate Aminotransferase 18 U/L (13-40); BUN/Creatinine Ratio 13.3 (10.0-20.0); Blood Urea Nitrogen 14 mg/dL (9-23); Calcium 8.5 mg/dL (8.5-10.1); Carbon Dioxide 27 mmol/L (20-30); Chloride 107 mmol/L (98-107); Cholesterol 159 mg/dL (< 200); HDL Cholesterol 29 mg/dL (40-59); LDL Cholesterol 79 mg/dL (< 100); Potassium 3.7 mmol/L (3.5-5.1); Sodium 138 mmol/L (136-145); Triglycerides 329 mg/dL (< 150)
[2023-11-05 07:14] LABS: Bilirubin, Total 0.5 mg/dL (0.2-1.0); Total Protein 6.2 g/dL (5.7-8.2)
[2023-11-05 07:25] LABS: Glucose 223 mg/dL (74-106)
[2023-11-05] MEDS: PANTOPRAZOLE 40 MG TAB PO SCH (09:12)
[2023-11-05] MEDS: ASPirin-EC 81 mg tab PO SCH (09:12)
[2023-11-05] MEDS: CLOPIDOGREL BISULFATE 75 MG TAB PO SCH (09:13)
[2023-11-05] MEDS: METOPROLOL TARTRATE 50 MG TAB PO SCH (09:13)
[2023-11-05] MEDS: RANOLAZINE ER 500 MG TAB PO SCH (09:13)
[2023-11-05] MEDS: ENOXAPARIN SOD 40 MG/0.4 ML SYRINGE SC SCH (09:18)
[2023-11-05] MEDS: ATORVASTATIN 20 MG TAB PO SCH (22:05)
[2023-11-06] VITALS (7 sets, daily range): BP systolic 111–132; BP diastolic 64–79; PULSE 65–72; RESP 16–20; TEMP 97.5–98.2; O2SAT 95–98
[2023-11-06] MEDS: MORPHINE SULFATE INJ 2 MG/ml SYRG IV PRN (06:32)
[2023-11-06] MEDS ORDERED: DEXTROSE (50%) 50ML SYRG IV PRN (11:45)
[2023-11-06] MEDS: HYDROcodone-ACET 5/325MG TAB PO PRN (14:50)
[2023-11-06] MEDS: InsuLIN REG 1unit/0.01ml Soln (100units/ml) SC SCH ×2 (16:57→21:49)
[2023-11-06] MEDS: ACCU-CHEK COMFORT CURVE STRIP VI SCH (16:57)
[2023-11-07] VITALS (8 sets, daily range): BP systolic 108–125; BP diastolic 64–77; PULSE 52–70; RESP 16–22; TEMP 97.7–98; O2SAT 94–100
[2023-11-07] MEDS: SODIUM CHLORIDE 0.9% 1,000 ML IV ONE (16:30)
[2023-11-08] VITALS (8 sets, daily range): BP systolic 107–138; BP diastolic 20–83; PULSE 58–77; RESP 14–21; TEMP 97.9–98.1; O2SAT 94–96
[2023-11-09] VITALS (13 sets, daily range): BP systolic 95–155; BP diastolic 60–82; PULSE 60–92; RESP 12–18; TEMP 97.6–98.2; O2SAT 91–100
[2023-11-09 05:55] LABS: Urine Bacteria None Seen /hpf (None Seen)
[2023-11-09 06:44] LABS: Basophils # (auto) 0 10 ^3/uL (0-0.2); Basophils % (auto) 0.6 % (0.0-2.0); Eosinophils # (auto) 0.1 10 ^3/uL (0-0.8); Eosinophils % (auto) 1.5 % (0.0-7.0); Hematocrit 35.8 % (41.0-53.0); Hemoglobin 12.2 g/dL (13.5-17.5); Lymphocytes # (auto) 1.6 10 ^3/uL (0.4-5.4); Lymphocytes % (auto) 23.7 % (10.0-50.0); Mean Corpuscular Hemoglobin 29.5 pg (28.0-32.0); Mean Corpuscular Volume 86.9 fL (80.0-100.0); Monocytes # (auto) 0.8 10 ^3/uL (0-1.3); Monocytes % (auto) 11.2 % (0.0-12.0); Neutrophils # (auto) 4.4 10 ^3/uL (1.6-8.6); Nucleated Red Blood Cells % 0.3 %; Red Blood Cells 4.12 10^6/uL (4.5-5.90); Red Cell Distribution Width 12.5 % (11.8-14.3); White Blood Cell 6.9 10^3/uL (4.4-10.8)
[2023-11-09 06:48] LABS: Urine Blood Negative /uL (Negative); Urine Clarity Clear (Clear); Urine Color Light-Yellow (Yellow); Urine Protein, UAD TRACE (Negative); Urine Specific Gravity 1.011 (1.001-1.035); Urine Urobilinogen Normal (Negative); Urine WBC <1 /hpf (0 - 3)
[2023-11-09 06:53] LABS: INR 1.03 (0.9-1.15); Partial Thromboplastin Time 27.9 SEC (24.5-34.5); Prothrombin Time 10.8 sec (9.3-11.8)
[2023-11-09 06:59] LABS: Alanine Aminotransferase 39 U/L (7-40); Albumin 4.2 g/dL (3.2-4.8); Alkaline Phosphatase 82 U/L (46-116); Anion Gap 6 (5-15); BUN/Creatinine Ratio 9.4 (10.0-20.0); Blood Urea Nitrogen 13 mg/dL (9-23); Calcium 8.9 mg/dL (8.5-10.1); Carbon Dioxide 26 mmol/L (20-30); Chloride 104 mmol/L (98-107); Glucose 223 mg/dL (74-106); Potassium 3.9 mmol/L (3.5-5.1); Sodium 136 mmol/L (136-145)
[2023-11-09 07:00] LABS: Bilirubin, Total 0.4 mg/dL (0.2-1.0); Total Protein 6.6 g/dL (5.7-8.2)
[2023-11-09 07:44] LABS: Aspartate Aminotransferase 39 U/L (13-40)
[2023-11-09] MEDS ORDERED: EMPAGLIFLOZIN 10 MG TAB ONE (10:20)
[2023-11-09] MEDS: EMPAGLIFLOZIN 10 MG TAB PO SCH (10:24)
[2023-11-09] MEDS: LIDOCAINE 2%HCL (LOCAL ANESTH.) INJ 10ml MDV ONE (13:01)
[2023-11-09] MEDS: IODIXANOL 320MG/ML 100ML BTL IV ONE ×4 (13:01→14:56)
[2023-11-09] MEDS: LIDOCAINE 2%HCL (LOCAL ANESTH.) INJ 20ML MDV ONE (14:11)
[2023-11-09] MEDS: GELATIN 1 SPONGE SIZE 50 TOP ONE (14:12)
[2023-11-09] MEDS: IOHEXOL 350 MG/ML 100ML IJ ONE (14:12)
[2023-11-09] MEDS: HEPARIN SODIUM (PORCINE) 5000 UNITS/ML 1ML VIAL ONE (14:18)
[2023-11-09] MEDS: ANGIOMAX 250 MG VIAL IV ONE (14:18)
[2023-11-09] MEDS: VERAPAMIL 2.5MG/ML INJ 2ML VIAL IV ONE (14:18)
[2023-11-09] MEDS: MIDAZOLAM HCL 2MG/2ML 2ml VIAL (1mg/ml) ONE (14:19)
[2023-11-09] MEDS: SODIUM CHL 0.9% 50 ML ONE (14:19)
[2023-11-09] MEDS: fentaNYL CITRATE 100 MCG/2 ML VL ONE (14:19)
[2023-11-09] MEDS ORDERED: CLOPIDOGREL BISULFATE 75 MG TAB ONE (15:03)
[2023-11-10 01:00] VITALS: BP 91/56; PULSE 60; RESP 12; TEMP 98.1; O2SAT 98
[2023-11-10 05:00] VITALS: BP 95/58; PULSE 66; RESP 12; TEMP 98.2; O2SAT 96
[2023-11-10 08:00] VITALS: PULSE 66; PULSE 88; RESP 18; O2SAT 97
[2023-11-10 09:00] VITALS: BP 100/68; PULSE 65; RESP 17; TEMP 97.7; O2SAT 93
[2023-11-10 12:51] VITALS: BP 117/75; PULSE 65; RESP 17; TEMP 98.4; O2SAT 96
[2023-11-10 15:19] VITALS: BP 117/75; PULSE 65; RESP 18; TEMP 98.4; O2SAT 96
== END 2023-11-10 16:25 | disposition home or self-care (01) | DRG 175 ==
LOC: ER 14:57 → TELE 17:55 → TELE-WESTW 11-05 01:03
PROVIDERS: ADMIT Nurse Practitioner Family; ATTEND Family Medicine
PROC: 4A023N7 Measurement of Cardiac Sampling and Pressure, Left Heart, Percutaneous Approach (ICD-10-PCS; principal; 2023-11-09)
PROC: 02703ZZ Dilation of Coronary Artery, One Artery, Percutaneous Approach (ICD-10-PCS; 2023-11-09)
PROC: B211YZZ Fluoroscopy of Multiple Coronary Arteries using Other Contrast (ICD-10-PCS; 2023-11-09)
DX: I25.110 Atherosclerotic heart disease of native coronary artery with unstable angina pectoris (principal); N17.0 Acute kidney failure with tubular necrosis; E11.65 Type 2 diabetes mellitus with hyperglycemia; E78.00 Pure hypercholesterolemia, unspecified; I10 Essential (primary) hypertension; E66.9 Obesity, unspecified; K21.9 Gastro-esophageal reflux disease without esophagitis; K29.70 Gastritis, unspecified, without bleeding; Z80.1 Family history of malignant neoplasm of trachea, bronchus and lung; Z80.3 Family history of malignant neoplasm of breast; Z80.42 Family history of malignant neoplasm of prostate; Z79.84 Long term (current) use of oral hypoglycemic drugs; Z80.8 Family history of malignant neoplasm of other organs or systems; Z81.8 Family history of other mental and behavioral disorders; Z82.0 Family history of epilepsy and other diseases of the nervous system; Z82.3 Family history of stroke; Z82.49 Family history of ischemic heart disease and other diseases of the circulatory system; Z82.5 Family history of asthma and other chronic lower respiratory diseases; Z82.62 Family history of osteoporosis; Z83.3 Family history of diabetes mellitus; Z68.29 Body mass index [BMI] 29.0-29.9, adult
CPT/HCPCS: 36415; 71045; 80053; 80061; 81001; 82962; 83036; 84484; 85025; 85610; 85730; 86850; 86900; 86901; 92920; 93005; 93306; 93458; 96361; 96372; 96374; 96375; 99152; G0378; J1815; J2001; J2250; J2405; Q9967

== ENCOUNTER 2024-01-01 21:29 | Emergency (ER) | payer MEDICAID ==
[~2024-01-01] VITALS: Ht 167.6 cm; Wt 81.3 kg
[2024-01-01 22:57] LABS: Basophils # (auto) 0.1 10 ^3/uL (0-0.2); Basophils % (auto) 0.6 % (0.0-2.0); Eosinophils # (auto) 0.1 10 ^3/uL (0-0.8); Eosinophils % (auto) 1.6 % (0.0-7.0); Hematocrit 38.2 % (41.0-53.0); Hemoglobin 13.2 g/dL (13.5-17.5); Lymphocytes # (auto) 1.8 10 ^3/uL (0.4-5.4); Lymphocytes % (auto) 21.6 % (10.0-50.0); Mean Corpuscular Hemoglobin 29.4 pg (28.0-32.0); Mean Corpuscular Hgb Conc. 34.6 g/dL (32.0-36.0); Mean Corpuscular Volume 84.9 fL (80.0-100.0); Monocytes # (auto) 0.9 10 ^3/uL (0-1.3); Monocytes % (auto) 10.9 % (0.0-12.0); Neutrophils # (auto) 5.4 10 ^3/uL (1.6-8.6); Neutrophils % (auto) 65.3 % (37.0-80.0); Red Blood Cells 4.49 10^6/uL (4.5-5.90); White Blood Cell 8.2 10^3/uL (4.4-10.8)
[2024-01-01 23:17] LABS: Alanine Aminotransferase 14 U/L (7-40); Albumin 4.8 g/dL (3.2-4.8); Alkaline Phosphatase 87 U/L (46-116); Anion Gap 4 (5-15); Aspartate Aminotransferase 11 U/L (13-40); BUN/Creatinine Ratio 14.5 (10.0-20.0); Bilirubin, Total 0.6 mg/dL (0.2-1.0); Blood Urea Nitrogen 23 mg/dL (9-23); Calcium 9.9 mg/dL (8.7-10.4); Carbon Dioxide 29 mmol/L (20-30); Chloride 102 mmol/L (98-107); Glucose 151 mg/dL (74-106); Lipase 46 U/L (12-53); Potassium 4.1 mmol/L (3.5-5.1); Sodium 135 mmol/L (136-145); Total Protein 8.3 g/dL (5.7-8.2)
[2024-01-01] MEDS ORDERED: DICY10CA PO (23:45)
[2024-01-01] MEDS ORDERED: ZOFR4T PO (23:45)
[2024-01-02] MEDS: DICYCLOMINE HCL (10MG/ML) 2 ML AMPULE IM ONE (00:26)
[2024-01-02] MEDS: ONDANSETRON ODT 4 MG TAB PO ONE (00:26)
[2024-01-02 00:34] VITALS: BP 142/89; PULSE 83; RESP 17; TEMP 97.8; O2SAT 96
== END 2024-01-02 00:36 | disposition home or self-care (01) ==
LOC: ER 21:29
DX: R10.84 Generalized abdominal pain (principal); R11.2 Nausea with vomiting, unspecified; R19.7 Diarrhea, unspecified; E11.22 Type 2 diabetes mellitus with diabetic chronic kidney disease; I12.9 Hypertensive chronic kidney disease with stage 1 through stage 4 chronic kidney disease, or unspecified chronic kidney disease; N18.9 Chronic kidney disease, unspecified; E78.5 Hyperlipidemia, unspecified; I25.2 Old myocardial infarction; Z90.49 Acquired absence of other specified parts of digestive tract
CPT/HCPCS: 36415; 80053; 82962; 83690; 85025; 96372; 99283; J0500; Q0162

== ENCOUNTER 2025-03-15 17:54 | Inpatient (IN) | payer MEDICAID ==
[~2025-03-15] VITALS: Ht 170.2 cm; Wt 87.4 kg
[~2025-03-15 17:54] MED LIST changes: +DICY10CA PO; +ZOFR4T PO
--- NOTE | 2025-03-15 18:11 | ECG ---
[facility] Test Date: 2025-03-15 Test Time: 18:03:17 Pat Name: SUPA LANDIN Department: [facility] ED Patient ID: [id number] Room: 0296T Gender: M Rn Social Services: byron : 1970 Requested By: FAIVAN TORIBIO Order Number: [id number] Reading MD: Jaswinder Ron Measurements Intervals [place] Rate: 84 P: 37 MN: 161 QRS: 53 QRSD: 96 T: 8 QT: 370 QTc: 438 Interpretive Statements Sinus rhythm Minimal ST depression, inferior leads Electronically Signed On 03-20-2025 22:41:12 PDT by Jaswinder Ron Please click the below link to view image of tracing.
[2025-03-15] MEDS: SODIUM CHLORIDE 0.9% 1,000 ML IV ONE (19:00)
--- NOTE | 2025-03-15 19:32 | ED.PDOC ---
Altered Mental Status HPI Comments 54y F who presents to the ED for chief complaint of ALOC. Pt states he was at home sitting down earlier this afternoon and states he got up to get his water bottle and states he suddenly lost consciousness and hit the kitchen cabinet and hit his head while on the floor. Pt states he remembers waking on the floor and came to the ED for further evaluation. Pt in the ED, states he has also been having chest pressure for the past 3x days. Pt in the ED, is alert and oriented x 4 and no noted changes in vision, gait or speech are noted. Pt otherwise has stable vitals in the ED. Pt has extensive cardiac history including OH, HTN, HLD, CAD, and DM. Pt denies any other symptoms at this time. Chief Complaint: Syncope Time Seen by MD: 19:00 Primary Care Provider: unknown Reviewed Notes: Medications, Allergies Allergies: Coded Allergies: NO KNOWN ALLERGIES (Verified , 12/31/20) Home Meds Active Scripts Ondansetron Odt 4MG Tab (ZOFRAN PO) 4 Mg Tb, 4 MG PO Q6HP PRN, #20 TAB ODT TAB-DISSOLVE IN MOUTH, THEN SWALLOW Prov:VAL INGRAM DO 01/01/24 Dicyclomine Hcl (BENTYL CAPSULE) 10 Mg Cp, 2 CAP PO Q6HPRN, #30 CAP 3 Refills Prov:VAL INGRAM DO 01/01/24 Ranolazine (Ranexa) 500 Mg Tab, 1000 MG PO BID, #90 TAB Prov:BRANDON CUNNINGHAM MD 08/17/22 Metoprolol Tartrate (LOPRESSOR TABLET) 50 Mg Tb, 50 MG PO BID, #60 TAB Prov:JOÃO HENAO MD 01/02/22 Lisinopril (Lisinopril) 5 Mg Tab, 10 MG PO DAILY, #60 TAB Prov:JOÃO HENAO MD 01/02/22 Aspirin (Aspir-Low) 81 Mg Tab, 81 MG PO DAILY, #30 TAB Prov:JOÃO HENAO MD 01/02/22 Clopidogrel Bisulfate (CLOPIDOGREL) 75 Mg Tab, 1 TAB PO DAILY, #30 TAB 1 Refill Prov:JOÃO HENAO MD 01/02/22 Atorvastatin Calcium (ATORVASTATIN CALCIUM) 20 Mg Tab, 2 TAB PO HS, #30 TAB 5 Refills Prov:TARAH HENAO MD 05/28/20 Reported Medications Pioglitazone Hydrochloride (ACTOS TABLET) 30 Mg Tb, 15 MG PO DAILY, TAB 06/29/19 Metformin Hydrochloride (Metformin Hcl) 500 Mg Tab, 500 MG PO IBID for 30 Days, MG 06/29/19 Pantoprazole Sodium Sesquihydr (Protonix) 40 Mg Tab, 40 MG PO PRN, #30 TAB 01/17/17 Nitroglycerin (NTROSTAT SUBLINGUAL) 0.4 Mg Sl, 0.4 MG SL PRN PRN for FOR CHEST PAIN *MAY REPEAT EVERY 5 MINUTES X 3 TOTAL IF NO RELIEF, INITIATE ANALGESIC THERAPY. NOTIFY PHYSICIAN *Do not crush. 05/05/16 Information Source: Patient Mode of Arrival: Ambulatory Past Medical History PAST MEDICAL HISTORY: Anemia, Angina, CAD, CKF, DM, GERD, High Lipids, HTN, OH Surgical History: Cholecystectomy, PTCA Family History Family History: Reviewed,noncontributory to illness, Family hx of DM, Family hx of heart adam, Family hx of HTN Social History Smoker: Non-Smoker Alcohol: Denies ETOH Use Drugs: Denies Drug Use Lives In: Home Constitutional: denies: chills, diaphoresis, fatigue, fever, malaise, sweats, weakness, others EENTM: denies: blurred vision, double vision, ear bleeding, ear discharge, ear drainage, ear pain, ear ringing, eye pain, eye redness, hearing loss, mouth pain, mouth swelling, nasal discharge, nose bleeding, nose congestion, nose pain, photophobia, tearing, throat pain, throat swelling, voice changes, others Respiratory: denies: cough, hemoptysis, orthopnea, SOB at rest, shortness of breath, SOB with excertion, stridor, wheezing, others Cardiovascular: reports: chest pain; denies: dizzy spells, diaphoresis, Dyspnea on exertion, edema, irregular heart beat, left arm pain, lightheadedness, palpitations, PND, syncope, others Gastrointestinal: denies: abdomen distended, abdominal pain, blood streaked bowels, constipated, diarrhea, dysphagia, difficulty swallowing, hematemesis, melena, nausea, poor appetite, poor fluid intake, rectal bleeding, rectal pain, vomiting, others Genitourinary: denies: burning, dysuria, flank pain, frequency, hematuria, incontinence, penile discharge, penile sore, pain, testicle pain, testicle swelling, urgency, others Neurological: reports: fainting; denies: dizziness, headache, left sided numbness, left sided weakness, numbness, paresthesia, pre-existing deficit, right sided numbness, right sided weakness, seizure, speech problems, tingling, tremors, weakness, others Musculoskeletal: denies: back pain, gout, joint pain, joint swelling, muscle pain, muscle stiffness, neck pain, others Integumetry: denies: bruises, change in color, change in hair/nails, dryness, laceration, lesions, lumps, rash, wounds, others Allergic/Immunocompromised: denies: Difficulty Healing, Frequent Infections, Hives, Itching, others Hematologic/Lymphatic: denies: anemia, blood clots, easy bleeding, easy bruising, swollen glands, others Endocrine: denies: excessive hunger, excessive sweating, excessive thirst, excessive urination, flushing, intolerance to cold, intolerance to heat, unexplained weight gain, unexplained weight loss, others Psychiatric: denies: anxiety, bipolar disorder, depression, hopeless, panic disorder, schizophrenia, sleepless, suicidal, others All Other Systems: Reviewed and Negative Physical Exam General Appearance: Mild Distress HEENT: Normal ENT Inspection, PERRL/EOMI Neck: Full Range of Motion, Non-Tender, Normal, Normal Inspection Respiratory: Chest Non-Tender, Lungs Clear, No Accessory Muscle Use, No Respiratory Distress, Normal Breath Sounds Cardiovascular: No Edema, No JVD, No Murmur, No Gallop, Normal Peripheral Pulses, Regular Rate/Rhythm Breast Exam: Deferred Gastrointestinal: No Organomegaly, Non Tender, No Pulsatile Mass, Normal Bowel Sounds, Soft Genitalia: Deferred Pelvic: Deferred Rectal: Deferred Extremities: No calf tenderness, Normal capillary refill, Normal inspection, Normal range of motion, Non-tender, No pedal edema Neurologic: Alert, podiatric medicine professor II-XII nml as Tested, No Motor Deficits, Normal Affect, Normal Mood, No Sensory Deficits Cerebellar Function: Normal Reflexes: Normal Skin: Dry, Normal Color, Warm Peripheral Pulses: 1+ carotid (R), 1+ carotid (L) Lymphatic: No Adenopathy EKG EKG : Pulse Rate (adult): 84 [place]: Normal Cardiac Rhythm: NSR Was a procedure done? Was a procedure done?: No Differential Diagnosis (ALOC) Differential Diagnosis: Dehydration, Hypoglycemia, Hypoxemia X-Ray, Labs, Meds, VS Vital Signs Date Time Temp Pulse Resp B/P (MAP) Pulse Ox O2 Delivery O2 Flow Rate FiO2 03/15/25 19:53 77 16 149/87 (107) 95 03/15/25 18:03 84 03/15/25 17:56 97.9 84 14 145/85 96 97.9 Lab Test 03/15/25 19:03 03/15/25 17:58 Range/Units White Blood Count 8.5 4.4-10.8 10^3/uL Red Blood Count 4.31 L 4.5-5.90 10^6/uL Hemoglobin 12.8 L 13.5-17.5 g/dL Hematocrit 36.2 L 41.0-53.0 % Mean Corpuscular Volume 84.1 80.0-100.0 fL Mean Corpuscular Hemoglobin 29.7 28.0-32.0 pg Mean Corpuscular Hemoglobin Concent 35.3 32.0-36.0 g/dL Red Cell Distribution Width 12.8 11.8-14.3 % Platelet Count 320 140-450 10^3/uL Mean Platelet Volume 7.6 6.9-10.8 fL Neutrophils (%) (Auto) 66.0 37.0-80.0 % Lymphocytes (%) (Auto) 23.9 10.0-50.0 % Monocytes (%) (Auto) 8.3 0.0-12.0 % Eosinophils (%) (Auto) 1.4 0.0-7.0 % Basophils (%) (Auto) 0.4 0.0-2.0 % Neutrophils # (Auto) 5.6 1.6-8.6 10 ^3/uL Lymphocytes # (Auto) 2.0 0.4-5.4 10 ^3/uL Monocytes # (Auto) 0.7 0-1.3 10 ^3/uL Eosinophils # (Auto) 0.1 0-0.8 10 ^3/uL Basophils # (Auto) 0 0-0.2 10 ^3/uL Nucleated Red Blood Cells 0.0 % Prothrombin Time 10.2 9.3-11.8 sec Prothrombin Time INR 0.96 0.9-1.15 Activated Partial Thromboplast Time 27.6 24.5-34.5 SEC D-Dimer, Quantitative 0.36 0.0-0.49 mg/L FEU Sodium Level 139 136-145 mmol/L Potassium Level 4.0 3.5-5.1 mmol/L Chloride Level 105 98-107 mmol/L Carbon Dioxide Level 25 20-31 mmol/L Anion Gap 9 5-15 Blood Urea Nitrogen 22 9-23 mg/dL Creatinine 1.41 H 0.700-1.30 mg/dL Glomerular Filtration Rate Calc 58 >90 mL/min BUN/Creatinine Ratio 15.6 10.0-20.0 Serum Glucose 137 H 74-106 mg/dL Calcium Level 9.0 8.7-10.4 mg/dL Magnesium Level 2.1 1.6-2.6 mg/dL Total Bilirubin 0.4 0.2-1.0 mg/dL Aspartate Amino Transferase (AST) 19 13-40 U/L Alanine Aminotransferase (ALT) 16 7-40 U/L Alkaline Phosphatase 87 46-116 U/L Troponin I High Sensitivity 5 </=54 ng/L Total Protein 7.3 5.7-8.2 g/dL Albumin 4.6 3.2-4.8 g/dL POC Glucose 111 H 70-106 mg/dl Current Medications Medications (Trade) Dose Ordered Sig/Emmanuel Route Start Time Stop Time Status Last Admin Sodium Chloride 1,000 ml @ 150 mls/hr Q6H40M ONCE IV 03/15/25 19:00 03/16/25 01:39 03/15/25 19:00 [place] [id number] Ph: [phone] DIAGNOSTIC IMAGING Diagnostic Imaging Report : [id number] Signed PATIENT: SUPA LANDIN ACCT: [id number] UNIT: [id number] : 1970 LOC: ER ROOM / BED: / AGE / SEX: 54 / M ADM STATUS: REG ER SERVICE 5125 ORDERING PHYSICIAN: FAVIAN TORIBIO MD PROCEDURE(s): CXR2 - CHEST TWO VIEWS ROUTINE REASON: cp syncopal episode ORDER NUMBER(s): [id number], ACCESSION NUMBER(s): [id number] CHEST RADIOGRAPH Indication: cp syncopal episode Technique: Frontal and lateral view of the chest was obtained Comparison: XY CHEST PORTABLE on DOS: 11/04/23, XY CHEST PORTABLE on DOS: 06/12/23, CHEST PORTABLE on DOS: 08/16/22, CXRP on DOS: 08/16/22, CHEST TWO VIEWS ROUTINE on DOS: 12/31/21 FINDINGS: Lines and Tubes: None Lungs: Clear Pleura: No effusion. No pneumothorax. Cardiomediastinal contours: Unremarkable Bones: Unremarkable IMPRESSION: 1. No evidence of acute disease. ATED BY: ALBA CAIN MD DICTATED DATE/TIME: 03/15/252006 SIGNED BY: ALBA CAIN MD SIGNED DATE/TIME: 03/15/252006 CC: X-Ray, Labs, Meds, VS Comment Course in the emergency department eventful patient came in because of chest pain for the past three four days going to his back and also syncope patient is on Plavix Chest x-ray is normal EKG shows normal sinus rhythm at 84 CBC is normal CMP GFR of 58 PTT 0.96 D-dimer 0.36 troponin five Patient will be admitted for further care Time of 1ST Reevaluation: 19:32 Reevaluation 1ST: Unchanged Time of 2ND Reevaluation: 20:19 Reevaluation 2ND: Improved Patient Education/Counseling: Diagnosis, Treatment, Prognosis Family Education/Counseling: Diagnosis, Treatment, Prognosis, No Family Present SEPSIS Sepsis Screen Date sepsis recognized/suspect: Mar 15, 2025 Time Sepsis recognized/suspect: 1755 Recent Procedure: No On Antibiotic Therapy: No Respiratory Rate >20: No Heart Rate >90: No Temp<36 C (96.8 F) or >38.3 C: No SBP <90 or MAP <65 mmHG: No New Acute Mental Status Change: No Is the patient on CPAP, BIPAP,: No Physician Orders Heplock Iv (03/15/25 18:54) Blood Pressure (03/15/25 18:54) Oxygen (03/15/25 18:54) Pulse Oximetry (03/15/25 18:54) Chest Two Views Routine (03/15/25 18:54) Sodium Chloride 0.9% (03/15/25 19:00) Vital Signs Date Time Temp Pulse Resp B/P (MAP) Pulse Ox O2 Delivery O2 Flow Rate FiO2 03/15/25 19:53 77 16 149/87 (107) 95 03/15/25 18:03 84 03/15/25 17:56 97.9 84 14 145/85 96 97.9 Laboratory Tests Test 03/15/25 19:03 White Blood Count 8.5 10^3/uL (4.4-10.8) Medications Medications Dose Ordered Sig/Emmanuel Route Start Time Stop Time Status Last Admin Dose Admin Sodium Chloride 1,000 ml @ 150 mls/hr Q6H40M ONCE IV 03/15/25 19:00 03/16/25 01:39 03/15/25 19:00 Departure 1 Departure Time of Disposition: 20:20 Impression: Primary Impression: Acute chest pain Additional Impressions: Syncopal episodes CAD S/P percutaneous coronary angioplasty CKD (chronic kidney disease) stage 3, GFR 30-59 ml/min Disposition: ADMITTED INPATIENT Admit to: [facility] Condition: Fair Critical Care Note Critical Care Time?: No Stability Stability form required: Yes Heart Score Heart Score: Heart Score Response (Comments) Value History Moderate Suspicious 1 EKG Normal 0 Age 45-64 1 Risk Factors >3 or Hx ASHD 2 Troponin Normal limit 0 Total 4 I personally scribed for FAVIAN TORIBIO MD ([email or web address]) on 03/15/25 at 19:32. Electronically submitted by Vadim Villeda ([email or web address]). I personally scribed for FAVIAN TORIBIO MD ([email or web address]) on 03/15/25 at 20:14. Electronically submitted by Vadim Villeda ([email or web address]). FAVIAN TORIBIO MD Mar 15, 2025 19:32
[2025-03-15 19:37] LABS: Hematocrit 36.2 % (41.0-53.0); Hemoglobin 12.8 g/dL (13.5-17.5); Mean Corpuscular Hemoglobin 29.7 pg (28.0-32.0); Mean Corpuscular Volume 84.1 fL (80.0-100.0); Nucleated Red Blood Cells % 0.0 %
[2025-03-15 19:49] LABS: Alanine Aminotransferase 16 U/L (7-40); Albumin 4.6 g/dL (3.2-4.8); Alkaline Phosphatase 87 U/L (46-116); Anion Gap 9 (5-15); BUN/Creatinine Ratio 15.6 (10.0-20.0); Bilirubin, Total 0.4 mg/dL (0.2-1.0); Blood Urea Nitrogen 22 mg/dL (9-23); Calcium 9.0 mg/dL (8.7-10.4); Carbon Dioxide 25 mmol/L (20-31); Chloride 105 mmol/L (98-107); Magnesium 2.1 mg/dL (1.6-2.6); Potassium 4.0 mmol/L (3.5-5.1); Sodium 139 mmol/L (136-145); Total Protein 7.3 g/dL (5.7-8.2)
[2025-03-15 19:55] LABS: Glucose 137 mg/dL (74-106)
[2025-03-15 20:07] LABS: INR 0.96 (0.9-1.15); Partial Thromboplastin Time 27.6 SEC (24.5-34.5); Prothrombin Time 10.2 sec (9.3-11.8)
--- NOTE | 2025-03-15 20:09 | DVH ---
CHEST RADIOGRAPH Indication: cp syncopal episode Technique: Frontal and lateral view of the chest was obtained Comparison: XY CHEST PORTABLE on DOS: 11/04/23, XY CHEST PORTABLE on DOS: 06/12/23, CHEST PORTABLE on D OS: 08/16/22, CXRP on DOS: 08/16/22, CHEST TWO VIEWS ROUTINE on DOS: 12/31/21 FINDINGS: Lines and Tubes: None Lungs: Clear Pleura: No effusion. No pneumothorax. Cardiomediastinal contours: Unremarkable Bones: Unremarkable IMPRESSION: 1. No evidence of acute disease.
[2025-03-15] MEDS ORDERED: ACETAMINOPHEN 325 MG TAB PO PRN (23:30)
[2025-03-15] MEDS ORDERED: NITROGLYCERIN 0.4 MG SL TAB SL PRN (23:30)
[2025-03-15] MEDS ORDERED: DEXTROSE (50%) 50ML SYRG IV PRN (23:30)
[2025-03-16] VITALS (10 sets, daily range): BP systolic 111–165; BP diastolic 67–103; PULSE 73–82; RESP 11–18; TEMP 97.7–98.1; O2SAT 95–98
--- NOTE | 2025-03-16 00:37 | DVH ---
CLINICAL HISTORY: syncope TECHNIQUE: Helical imaging carried out from skull base to vertex without intravenous contrast. This e xam was performed according to our departmental dose optimization program. Up-to-date CT equipment an d radiation dose reduction techniques are utilized as appropriate. CTDIVol: 58.52 mGy DLP: 1153.11 mGy-cm WID: COMPARISON: None FINDINGS: Chronic appearing lacunar infarct in the right su. Mild cerebral volume loss with concordant promin ence of the subarachnoid spaces and ventricles. Minor supratentorial periventricular white matter hyp odensities . There is no midline shift or mass effect. The brown white matter interfaces are maintained. The basal cisterns are patent. There is no evidence of acute intracranial hemorrhage or extra-axial fluid jack ection. The mastoid air cells and visualized paranasal sinuses are well-aerated. There is a shunt pati ng the superior lateral left orbit. IMPRESSION: No acute intracranial abnormality. Mild cerebral volume loss and minor chronic microvascular ischemic change. Chronic appearing lacunar infarct in the right su.
--- NOTE | 2025-03-16 00:58 | DVHHP2 ---
History of Present Illness Reason for Visit: Syncope History of Present Illness 54-year-old male presents for evaluation of syncopal episode. Patient reports having a syncopal episode today while walking to the living room. He states losing consciousness in hitting his head against the kitchen cabinet. He states waking up in the floor unaware of what had happened. He states that for the past two days he has been having substernal sharp chest pain that radiates to his back. Denies any symptoms. No headache or blurred vision. No other acute complaints. Past Medical History CAD, chronic kidney disease, diabetes mellitus, hypertension, GERD, [place] Past Surgical History Cholecystectomy, PTCA Family History Noncontributory Smoke: No ALCOHOL: none Drugs: None Lives: with Family Review of Systems Review of Systems Review of systems are currently negative otherwise addressed in HPI. Allergies: Coded Allergies: NO KNOWN ALLERGIES (Verified , 12/31/20) Medications Current Medications Medications Dose Ordered Sig/Emmanuel Route Start Time Stop Time Status Last Admin Dose Admin Aspirin 81 mg DAILY PO 03/16/25 10:00 Atorvastatin Calcium 40 mg HS PO 03/16/25 22:00 Lisinopril 10 mg DAILY PO 03/16/25 10:00 Metoprolol Succinate 50 mg DAILY PO 03/16/25 10:00 Ranolazine 500 mg BID PO 03/16/25 10:00 Diagnostic Test (Pha) 1 strip ACHS 03/16/25 07:00 Insulin Human Regular ACHS SC 03/16/25 07:00 Dextrose 50 ml UD PRN IV 03/15/25 23:30 Ondansetron HCl 4 mg Q4HP PRN IV 03/15/25 23:30 Acetaminophen 650 mg Q6HP PRN PO 03/15/25 23:30 Nitroglycerin 0.4 mg Q5MINP PRN SL 03/15/25 23:30 Morphine Sulfate 2 mg Q30M PRN IV 03/15/25 23:30 Exam Vital Signs Vital Signs Date Time Temp Pulse Resp B/P (MAP) Pulse Ox O2 Delivery O2 Flow Rate FiO2 03/15/25 20:22 84 03/15/25 19:53 16 149/87 (107) 95 03/15/25 17:56 97.9 97.9 Exam Gen: 54-year-old year old male in mild distress Skin: Warm, dry, normal color and texture, no rash. HEENT: Normocephalic atraumatic, mucous membranes moist and pink. Neck: Cervical and supraclavicular nodes normal without enlargement, trachea is midline, thyroid gland is normal without masses. Pulmonary: Clear to auscultation and percussion bilaterally. Cardiac: Regular rate and rhythm. No murmur Abdomen: Soft, nontender, nondistended, bowel sounds present all 4 quadrants, no guarding, no rigidity, no organomegaly. Extremities: No cyanosis, clubbing, no edema Neuro: Cranial nerves II through XII grossly intact, normal affect and speech, no focal motor deficits. Labs/Xrays ORDERING PHYSICIAN: FAVIAN TORIBIO MD PROCEDURE(s): CXR2 - CHEST TWO VIEWS ROUTINE REASON: cp syncopal episode ORDER NUMBER(s): [id number], ACCESSION NUMBER(s): [id number] CHEST RADIOGRAPH Indication: cp syncopal episode Technique: Frontal and lateral view of the chest was obtained Comparison: XY CHEST PORTABLE on DOS: 11/04/23, XY CHEST PORTABLE on DOS: 06/12/23, CHEST PORTABLE on DOS: 08/16/22, CXRP on DOS: 08/16/22, CHEST TWO VIEWS ROUTINE on DOS: 12/31/21 FINDINGS: Lines and Tubes: None Lungs: Clear Pleura: No effusion. No pneumothorax. Cardiomediastinal contours: Unremarkable Bones: Unremarkable IMPRESSION: 1. No evidence of acute disease. Labs Test 03/16/25 00:28 03/15/25 19:03 03/15/25 17:58 Range/Units White Blood Count 8.5 4.4-10.8 10^3/uL Red Blood Count 4.31 L 4.5-5.90 10^6/uL Hemoglobin 12.8 L 13.5-17.5 g/dL Hematocrit 36.2 L 41.0-53.0 % Mean Corpuscular Volume 84.1 80.0-100.0 fL Mean Corpuscular Hemoglobin 29.7 28.0-32.0 pg Mean Corpuscular Hemoglobin Concent 35.3 32.0-36.0 g/dL Red Cell Distribution Width 12.8 11.8-14.3 % Platelet Count 320 140-450 10^3/uL Mean Platelet Volume 7.6 6.9-10.8 fL Neutrophils (%) (Auto) 66.0 37.0-80.0 % Lymphocytes (%) (Auto) 23.9 10.0-50.0 % Monocytes (%) (Auto) 8.3 0.0-12.0 % Eosinophils (%) (Auto) 1.4 0.0-7.0 % Basophils (%) (Auto) 0.4 0.0-2.0 % Neutrophils # (Auto) 5.6 1.6-8.6 10 ^3/uL Lymphocytes # (Auto) 2.0 0.4-5.4 10 ^3/uL Monocytes # (Auto) 0.7 0-1.3 10 ^3/uL Eosinophils # (Auto) 0.1 0-0.8 10 ^3/uL Basophils # (Auto) 0 0-0.2 10 ^3/uL Nucleated Red Blood Cells 0.0 % Prothrombin Time 10.2 9.3-11.8 sec Prothrombin Time INR 0.96 0.9-1.15 Activated Partial Thromboplast Time 27.6 24.5-34.5 SEC D-Dimer, Quantitative 0.36 0.0-0.49 mg/L FEU Sodium Level 139 136-145 mmol/L Potassium Level 4.0 3.5-5.1 mmol/L Chloride Level 105 98-107 mmol/L Carbon Dioxide Level 25 20-31 mmol/L Anion Gap 9 5-15 Blood Urea Nitrogen 22 9-23 mg/dL Creatinine 1.41 H 0.700-1.30 mg/dL Glomerular Filtration Rate Calc 58 >90 mL/min BUN/Creatinine Ratio 15.6 10.0-20.0 Serum Glucose 137 H 74-106 mg/dL Calcium Level 9.0 8.7-10.4 mg/dL Magnesium Level 2.1 1.6-2.6 mg/dL Total Bilirubin 0.4 0.2-1.0 mg/dL Aspartate Amino Transferase (AST) 19 13-40 U/L Alanine Aminotransferase (ALT) 16 7-40 U/L Alkaline Phosphatase 87 46-116 U/L Total Protein 7.3 5.7-8.2 g/dL Albumin 4.6 3.2-4.8 g/dL POC Glucose 111 H 70-106 mg/dl SEPSIS Sepsis Screen Date sepsis recognized/suspect: Mar 15, 2025 Time Sepsis recognized/suspect: 1755 Recent Procedure: No On Antibiotic Therapy: No Respiratory Rate >20: No Heart Rate >90: No Temp<36 C (96.8 F) or >38.3 C: No SBP <90 or MAP <65 mmHG: No New Acute Mental Status Change: No Is the patient on CPAP, BIPAP,: No Physician Orders Heplock Iv (03/15/25 18:54) Blood Pressure (03/15/25 18:54) Oxygen (03/15/25 18:54) Pulse Oximetry (03/15/25 18:54) Chest Two Views Routine (03/15/25 18:54) Sodium Chloride 0.9% (03/15/25 19:00) Troponin-I Hs (03/16/25 00:29) Ct Head Cva (03/15/25 23:29) Aspirin Tablet (03/16/25 10:00) Atorvastatin (Lipitor) (03/16/25 22:00) Lisinopril Tablet (Zestril Tablet) (03/16/25 10:00) Metoprolol Xl Succinate (Toprol Xl) (03/16/25 10:00) Ranolazine (Ranexa Er) (03/16/25 10:00) * Cardiology Consult (03/15/25 23:29) Basic Metabolic Panel (03/16/25 04:00) Glucose Blood (Accu-Chek Comfort Curve T (03/16/25 07:00) Insulin R (Human) (Insulin R) (03/16/25 07:00) Dextrose 50% Syringe (03/15/25 23:30) Admit (03/15/25 23:29) Ondansetron Hcl (Zofran) (03/15/25 23:30) Cardiac Diet-2gna,Lofat,Lochol (03/16/25 Breakfast) Echo 2d Mode Cardiac Dop (03/15/25 23:29) Condition: Fair (03/15/25 23:29) Acetaminophen Tablet (Tylenol Tablet) (03/15/25 23:30) Bedrest With Bathroom Privileg (03/15/25 23:29) Nitroglycerin Sublingual (Ntrostat Subli (03/15/25 23:30) Morphine Sulfate Injection (03/15/25 23:30) Stat Ekg For Chest Pain (03/15/25 23:29) Notify Md Of Changes From Base (03/15/25 23:29) Technician Chemical Cleaning For 24 Hours (03/15/25 23:29) Emergency Dysrhythmia Protocol (03/15/25 23:29) Rhythm Strips Once Every Shift (03/15/25 23:29) Oxygen By Nasal Cannula (03/15/25 23:29) Vital Signs Date Time Temp Pulse Resp B/P (MAP) Pulse Ox O2 Delivery O2 Flow Rate FiO2 03/15/25 20:22 84 03/15/25 19:53 77 16 149/87 (107) 95 03/15/25 18:03 84 03/15/25 17:56 97.9 84 14 145/85 96 97.9 Laboratory Tests Test 03/15/25 19:03 White Blood Count 8.5 10^3/uL (4.4-10.8) Medications Medications Dose Ordered Sig/Emmanuel Route Start Time Stop Time Status Last Admin Dose Admin Sodium Chloride 1,000 ml @ 150 mls/hr Q6H40M ONCE IV 03/15/25 19:00 03/16/25 01:39 03/15/25 19:00 150 MLS/HR Assessment/Plan Assessment/Plan Assessment Chest pain Syncope Diabetes mellitus Hypertension CAD status post PTCA Plan Admit the patient to telemetry to the hospitalist Cardiology consultation CT of the head pending Resume home medications Continue treatment per orders. Plan discussed with: Patient My Orders Orders - JOHN CHACON AGACNP Procedure Category Date Status Time Troponin-I Hs LAB 03/16/25 In Process 00:[address] 03/15/25 Resulted 23:29 Aspirin Tablet PHA 03/16/25 In Process 10:00 Atorvastatin (Lipitor) PHA 03/16/25 In Process 22:00 Lisinopril Tablet PHA 03/16/25 In Process (Zestril Tablet) 10:00 Metoprolol Xl PHA 03/16/25 In Process Succinate (Toprol Xl) 10:00 Ranolazine (Ranexa Er) PHA 03/16/25 In Process 10:00 * Cardiology Consult CONS 03/15/25 Transmitted 23:29 Basic Metabolic Panel LAB 03/16/25 Logged 04:00 Glucose Blood PHA 03/16/25 In Process (Accu-Chek Comfort 07:00 Insulin R (Human) PHA 03/16/25 In Process (Insulin R) 07:00 Dextrose 50% Syringe PHA 03/15/25 In Process 23:30 Admit ADMIT 03/15/25 Transmitted 23:29 Ondansetron Hcl PHA 03/15/25 In Process (Zofran) 23:30 Cardiac DIET 03/16/25 Transmitted Diet-2gna,Lofat,Lochol Breakfast Echo 2d Mode Cardiac US 03/15/25 Logged DOP 23:29 Condition: Fair KEKE 03/15/25 In Process 23:29 Acetaminophen Tablet PHA 03/15/25 In Process (Tylenol Tablet) 23:30 Bedrest With Bathroom KEKE 03/15/25 In Process Privileg 23:29 Nitroglycerin [facility] 03/15/25 In Process Sublingual (Ntrostat 23:30 Morphine Sulfate PHA 03/15/25 In Process Injection 23:30 Stat Ekg For Chest [facility] 03/15/25 In Process Pain 23:29 Notify Of Changes [facility] 03/15/25 In Process From Base 23:29 Technician Chemical Cleaning For [facility] 03/15/25 In Process 24 Hours 23:29 Emergency Dysrhythmia [facility] 03/15/25 In Process Protocol 23:29 Rhythm Strips Once [facility] 03/15/25 In Process Every Shift 23:29 Oxygen By Nasal RT 03/15/25 Transmitted Cannula 23:29 Date of Service: Mar 15, 2025 Billing Provider: JOHN CHACON Common Visit Codes: [id number] INP/OBS CARE (HIGH) JOHN CHACON Mar 16, 2025 00:58
[2025-03-16] MEDS: HYDROcodone-ACET 5/325MG TAB PO ONE (01:07)
[2025-03-16] MEDS: MORPHINE SULFATE INJ 2 MG/ml SYRG IV PRN (02:15)
[2025-03-16] MEDS ORDERED: OMEG-77 PO (05:00)
[2025-03-16 06:15] LABS: Anion Gap 8 (5-15); Carbon Dioxide 27 mmol/L (20-31); Chloride 106 mmol/L (98-107); Potassium 3.7 mmol/L (3.5-5.1); Sodium 141 mmol/L (136-145)
[2025-03-16 06:17] LABS: Calcium 8.9 mg/dL (8.7-10.4)
[2025-03-16 06:21] LABS: Glucose 88 mg/dL (74-106)
[2025-03-16 06:22] LABS: BUN/Creatinine Ratio 16.7 (10.0-20.0); Blood Urea Nitrogen 19 mg/dL (9-23)
[2025-03-16] MEDS: InsuLIN REG 1unit/0.01ml Soln (100units/ml) SC SCH (06:45)
[2025-03-16] MEDS: ACCU-CHEK COMFORT CURVE STRIP VI SCH (06:45)
[2025-03-16] MEDS: RANOLAZINE ER 500 MG TAB PO SCH (09:33)
[2025-03-16] MEDS: METOPROLOL SUCCINATE XL 50 MG TAB PO SCH (09:34)
[2025-03-16] MEDS: LISINOPRIL 5 MG TAB PO SCH (09:34)
[2025-03-16] MEDS ORDERED: hydrALAZINE HCL 20 MG/ML VL IV PRN (13:00)
--- NOTE | 2025-03-16 13:26 | DVHINCON2 ---
Date of service: Mar 16, 2025 History of Present Illness 54 yo M with hx of cad s/p pci with me, htn, hl, dm admitted for syncope. pt was walking from kitchen to his chair and blacked out. he was found on floor. he checked his BS was 70s to 80s and BP was 150s at home. trops are - Past Medical History reviewed Family History: Diabetes mellitus G8 MOTHER FH: HTN (hypertension) GRANDFATHER G8 FATHER Family history: Cardiovascular disease GRANDFATHER G8 FATHER Family history: Diabetes mellitus G8 MOTHER GRANDMOTHER No Family History of: Alcoholism Cancer Family history: Alzheimer's disease Family history: Arthritis Family history: Asthma Family history: Blood disorder Family history: Congenital anomaly Family history: Coronary thrombosis Family history: Depression (situation) Family history: Diabetes in Family history: Hypercholesterolemia (situation) Family history: Hypertension Family history: Osteoporosis Family history: Suicide (situation) Family history: Thyroid disorder Ischemic heart disease Malignant melanoma Malignant neoplasm of breast Malignant neoplasm of lung Malignant neoplasm of ovary Prostate cancer Renal stone Seizure disorder (situation) Stroke Allergies: Coded Allergies: NO KNOWN ALLERGIES (Verified , 12/31/20) Home Meds Active Scripts Dicyclomine Hcl (BENTYL CAPSULE) 10 Mg Cp, 2 CAP PO Q6HPRN, #30 CAP 3 Refills Prov:VAL INGRAM DO 01/01/24 Ranolazine (Ranexa) 500 Mg Tab, 1000 MG PO BID, #90 TAB Prov:BRANDON CUNNINGHAM MD 08/17/22 Metoprolol Tartrate (LOPRESSOR TABLET) 50 Mg Tb, 50 MG PO BID, #60 TAB Prov:JOÃO HENAO MD 01/02/22 Lisinopril (Lisinopril) 5 Mg Tab, 10 MG PO DAILY, #60 TAB Prov:JOÃO HENAO MD 01/02/22 Aspirin (Aspir-Low) 81 Mg Tab, 81 MG PO DAILY, #30 TAB Prov:JOÃO HENAO MD 01/02/22 Clopidogrel Bisulfate (CLOPIDOGREL) 75 Mg Tab, 1 TAB PO DAILY, #30 TAB 1 Refill Prov:JOÃO HENAO MD 01/02/22 Atorvastatin Calcium (ATORVASTATIN CALCIUM) 20 Mg Tab, 2 TAB PO HS, #30 TAB 5 Refills Prov:TARAH HENAO MD 05/28/20 Reported Medications [place]-3 Fatty Acids ([place] Monopure 650 EC 650 mg) 1 Cap Cap, 1 CAP PO, CAP 03/16/25 Pioglitazone Hydrochloride (ACTOS TABLET) 30 Mg Tb, 15 MG PO DAILY, TAB 06/29/19 Metformin Hydrochloride (Metformin Hcl) 500 Mg Tab, 500 MG PO IBID for 30 Days, MG 06/29/19 Pantoprazole Sodium Sesquihydr (Protonix) 40 Mg Tab, 40 MG PO PRN, #30 TAB 01/17/17 Nitroglycerin (NTROSTAT SUBLINGUAL) 0.4 Mg Sl, 0.4 MG SL PRN PRN for FOR CHEST PAIN *MAY REPEAT EVERY 5 MINUTES X 3 TOTAL IF NO RELIEF, INITIATE ANALGESIC THERAPY. NOTIFY PHYSICIAN *Do not crush. 05/05/16 Current Medications Current Medications Medications (Trade) Dose Ordered Sig/Emmanuel Route PRN Reason Start Time Stop Time Status Last Admin Aspirin 81 mg DAILY PO 03/16/25 10:00 03/16/25 09:33 Atorvastatin Calcium (Lipitor) 40 mg HS PO 03/16/25 22:00 Lisinopril (Zestril Tablet) 10 mg DAILY PO 03/16/25 10:00 03/16/25 09:34 Metoprolol Succinate (Toprol Xl) 50 mg DAILY PO 03/16/25 10:00 03/16/25 09:34 Ranolazine (Ranexa ER) 500 mg BID PO 03/16/25 10:00 03/16/25 09:33 Diagnostic Test (Pha) (Accu-Chek Comfort Curve T) 1 strip ACHS 03/16/25 07:00 03/16/25 11:39 Insulin Human Regular (InsuLIN R) ACHS SC 03/16/25 07:00 Dextrose 50 ml UD PRN IV Blood Sugar LESS THAN 60 03/15/25 23:30 Ondansetron HCl (Zofran) 4 mg Q4HP PRN IV NAUSEA / VOMITING 03/15/25 23:30 Acetaminophen (Tylenol Tablet) 650 mg Q6HP PRN PO PAIN SCALE 1-3 OR TEMP>100.4 03/15/25 23:30 Nitroglycerin (Ntrostat Sublingual) 0.4 mg Q5MINP PRN SL FOR CHEST PAIN 03/15/25 23:30 Morphine Sulfate 2 mg Q30M PRN IV FOR CHEST PAIN 03/15/25 23:30 03/16/25 02:15 Hydralazine HCl (Apresoline Injection) 10 mg Q4HPRN PRN IV SBP>150 03/16/25 13:00 Review of Systems 10 pt ros otherwise negative Vital Signs Vital Signs Date Time Temp Pulse Resp B/P (MAP) Pulse Ox O2 Delivery O2 Flow Rate FiO2 03/16/25 12:35 98.1 76 11 165/92 (116) 96 98.1 03/16/25 02:15 Room Air* 0 21 Physical Exam nad s1 s2 rrr ctab soft ntnd no edema Labs/Diagnostic Data Labs Test 03/16/25 11:38 03/16/25 05:22 03/16/25 00:28 03/15/25 19:03 Range/Units POC Glucose 93 70-106 mg/dl Sodium Level 141 136-145 mmol/L Potassium Level 3.7 3.5-5.1 mmol/L Chloride Level 106 98-107 mmol/L Carbon Dioxide Level 27 20-31 mmol/L Anion Gap 8 5-15 Blood Urea Nitrogen 19 9-23 mg/dL Creatinine 1.14 0.700-1.30 mg/dL Glomerular Filtration Rate Calc 75 >90 mL/min BUN/Creatinine Ratio 16.7 10.0-20.0 Serum Glucose 88 74-106 mg/dL Calcium Level 8.9 8.7-10.4 mg/dL Troponin I High Sensitivity 3 L </=54 ng/L White Blood Count 8.5 4.4-10.8 10^3/uL Red Blood Count 4.31 L 4.5-5.90 10^6/uL Hemoglobin 12.8 L 13.5-17.5 g/dL Hematocrit 36.2 L 41.0-53.0 % Mean Corpuscular Volume 84.1 80.0-100.0 fL Mean Corpuscular Hemoglobin 29.7 28.0-32.0 pg Mean Corpuscular Hemoglobin Concent 35.3 32.0-36.0 g/dL Red Cell Distribution Width 12.8 11.8-14.3 % Platelet Count 320 140-450 10^3/uL Mean Platelet Volume 7.6 6.9-10.8 fL Neutrophils (%) (Auto) 66.0 37.0-80.0 % Lymphocytes (%) (Auto) 23.9 10.0-50.0 % Monocytes (%) (Auto) 8.3 0.0-12.0 % Eosinophils (%) (Auto) 1.4 0.0-7.0 % Basophils (%) (Auto) 0.4 0.0-2.0 % Neutrophils # (Auto) 5.6 1.6-8.6 10 ^3/uL Lymphocytes # (Auto) 2.0 0.4-5.4 10 ^3/uL Monocytes # (Auto) 0.7 0-1.3 10 ^3/uL Eosinophils # (Auto) 0.1 0-0.8 10 ^3/uL Basophils # (Auto) 0 0-0.2 10 ^3/uL Nucleated Red Blood Cells 0.0 % Prothrombin Time 10.2 9.3-11.8 sec Prothrombin Time INR 0.96 0.9-1.15 Activated Partial Thromboplast Time 27.6 24.5-34.5 SEC D-Dimer, Quantitative 0.36 0.0-0.49 mg/L FEU Magnesium Level 2.1 1.6-2.6 mg/dL Total Bilirubin 0.4 0.2-1.0 mg/dL Aspartate Amino Transferase (AST) 19 13-40 U/L Alanine Aminotransferase (ALT) 16 7-40 U/L Alkaline Phosphatase 87 46-116 U/L Total Protein 7.3 5.7-8.2 g/dL Albumin 4.6 3.2-4.8 g/dL Assessment syncope HTN HL dm cad obesity Plan/Recommendation cont tele for 24 hours acs ruled out check echo outpt holter Plan discussed with: Patient CHRIS AGUILAR MD Mar 16, 2025 13:25
--- NOTE | 2025-03-16 16:54 | DVHPN2 ---
Subjective I am assuming the care of the patient from today onwards, patient was walking to the living room at home and passed out. Changes from previous H/P or p: No Changes Objective Vitals Vital Signs Date Time Temp Pulse Resp B/P (MAP) Pulse Ox O2 Delivery O2 Flow Rate FiO2 03/16/25 12:35 98.1 76 11 165/92 (116) 96 98.1 03/16/25 02:15 Room Air* 0 21 Intake/Output Intake and Output 03/16/25 07:00 Intake Total 150 ml Balance 150 ml Intake IV Total 150 ml Exam HEENT pupils are reactive Neck is supple CV is S1-S2 regular rate and rhythm Respiratory are clear GI positive bowel sound Extremity no pedal edema FITTER UP no motor deficit Medications Current Medications Medications Dose Ordered Sig/Emmanuel Route Start Time Stop Time Status Last Admin Dose Admin Aspirin 81 mg DAILY PO 03/16/25 10:00 03/16/25 09:33 81 MG Atorvastatin Calcium 40 mg HS PO 03/16/25 22:00 Lisinopril 10 mg DAILY PO 03/16/25 10:00 03/16/25 09:34 10 MG Metoprolol Succinate 50 mg DAILY PO 03/16/25 10:00 03/16/25 09:34 50 MG Ranolazine 500 mg BID PO 03/16/25 10:00 03/16/25 09:33 500 MG Diagnostic Test (Pha) 1 strip ACHS 03/16/25 07:00 03/16/25 11:39 1 STRIP Insulin Human Regular ACHS SC 03/16/25 07:00 Dextrose 50 ml UD PRN IV 03/15/25 23:30 Ondansetron HCl 4 mg Q4HP PRN IV 03/15/25 23:30 Acetaminophen 650 mg Q6HP PRN PO 03/15/25 23:30 Nitroglycerin 0.4 mg Q5MINP PRN SL 03/15/25 23:30 Morphine Sulfate 2 mg Q30M PRN IV 03/15/25 23:30 03/16/25 02:15 2 MG Hydralazine HCl 10 mg Q4HPRN PRN IV 03/16/25 13:00 Laboratory Results Laboratory Tests 03/15/25 19:03 03/16/25 05:22 Chemistry Test 03/15/25 19:03 03/16/25 05:22 Albumin 4.6 g/dL (3.2-4.8) Calcium Level 9.0 mg/dL (8.7-10.4) 8.9 mg/dL (8.7-10.4) Magnesium Level 2.1 mg/dL (1.6-2.6) Total Protein 7.3 g/dL (5.7-8.2) Coagulation Test 03/15/25 19:03 Prothrombin Time 10.2 sec (9.3-11.8) Prothrombin Time INR 0.96 (0.9-1.15) Activated Partial Thromboplast Time 27.6 SEC (24.5-34.5) D-Dimer, Quantitative 0.36 mg/L FEU (0.0-0.49) LFT Test 03/15/25 19:03 Alanine Aminotransferase (ALT) 16 U/L (7-40) Alkaline Phosphatase 87 U/L (46-116) Aspartate Amino Transferase (AST) 19 U/L (13-40) Total Bilirubin 0.4 mg/dL (0.2-1.0) Assessment/Plan Assessment/Plan 54-year-old male with a known history of CAD status post PCI, diabetes mellitus type 2, hypertension, dyslipidemia who initially presented to the hospital with syncope episode found to have 1. Syncope rule out cardiac arrhythmia 2. CAD status post PCI 3. Hypertension 4. diabetes mellitus type 2 5. Dyslipidemia -tele monitoring, cardiology consultation, Holter monitoring upon discharge. Plan discussed with: Patient My Orders Orders - PIPO DORAN MD Procedure Category Date Status Time Orthostatic Vital ORDERS 03/16/25 Transmitted Signs 13:00 Hydralazine Injection PHA 03/16/25 In Process (Apresoline Inject 13:00 Date of Service: Mar 16, 2025 Billing Provider: PIPO DORAN MD Common Visit Codes: [id number] INP/OBS CARE(MOD) PIPO DORAN MD Mar 16, 2025 16:53
[2025-03-16] MEDS: ONDANSETRON HCL 4 MG/2 ML VIAL IV PRN (20:28)
[2025-03-16] MEDS: ATORVASTATIN 20 MG TAB PO SCH (21:05)
[2025-03-17] VITALS (7 sets, daily range): BP systolic 99–119; BP diastolic 63–81; PULSE 78–87; RESP 16–18; TEMP 36.6; O2SAT 95–98
--- NOTE | 2025-03-17 15:52 | DVHDS2 ---
Discharge Summary Date of Admission Mar 15, 2025 at 23:29 Date of Discharge: Mar 17, 2025 Labs/Diagnostic Data: Laboratory Results Test 03/17/25 11:19 03/16/25 05:22 03/16/25 00:28 03/15/25 19:03 POC Glucose 142 mg/dl (70-106) Sodium Level 141 mmol/L (136-145) Potassium Level 3.7 mmol/L (3.5-5.1) Chloride Level 106 mmol/L (98-107) Carbon Dioxide Level 27 mmol/L (20-31) Anion Gap 8 (5-15) Blood Urea Nitrogen 19 mg/dL (9-23) Creatinine 1.14 mg/dL (0.700-1.30) Glomerular Filtration Rate Calc 75 mL/min (>90) BUN/Creatinine Ratio 16.7 (10.0-20.0) Serum Glucose 88 mg/dL (74-106) Calcium Level 8.9 mg/dL (8.7-10.4) Troponin I High Sensitivity 3 ng/L (</=54) White Blood Count 8.5 10^3/uL (4.4-10.8) Red Blood Count 4.31 10^6/uL (4.5-5.90) Hemoglobin 12.8 g/dL (13.5-17.5) Hematocrit 36.2 % (41.0-53.0) Mean Corpuscular Volume 84.1 fL (80.0-100.0) Mean Corpuscular Hemoglobin 29.7 pg (28.0-32.0) Mean Corpuscular Hemoglobin Concent 35.3 g/dL (32.0-36.0) Red Cell Distribution Width 12.8 % (11.8-14.3) Platelet Count 320 10^3/uL (140-450) Mean Platelet Volume 7.6 fL (6.9-10.8) Neutrophils (%) (Auto) 66.0 % (37.0-80.0) Lymphocytes (%) (Auto) 23.9 % (10.0-50.0) Monocytes (%) (Auto) 8.3 % (0.0-12.0) Eosinophils (%) (Auto) 1.4 % (0.0-7.0) Basophils (%) (Auto) 0.4 % (0.0-2.0) Neutrophils # (Auto) 5.6 10 ^3/uL (1.6-8.6) Lymphocytes # (Auto) 2.0 10 ^3/uL (0.4-5.4) Monocytes # (Auto) 0.7 10 ^3/uL (0-1.3) Eosinophils # (Auto) 0.1 10 ^3/uL (0-0.8) Basophils # (Auto) 0 10 ^3/uL (0-0.2) Nucleated Red Blood Cells 0.0 % Prothrombin Time 10.2 sec (9.3-11.8) Prothrombin Time INR 0.96 (0.9-1.15) Activated Partial Thromboplast Time 27.6 SEC (24.5-34.5) D-Dimer, Quantitative 0.36 mg/L FEU (0.0-0.49) Magnesium Level 2.1 mg/dL (1.6-2.6) Total Bilirubin 0.4 mg/dL (0.2-1.0) Aspartate Amino Transferase (AST) 19 U/L (13-40) Alanine Aminotransferase (ALT) 16 U/L (7-40) Alkaline Phosphatase 87 U/L (46-116) Total Protein 7.3 g/dL (5.7-8.2) Albumin 4.6 g/dL (3.2-4.8) Other Laboratory Tests 03/16/25 05:22 03/15/25 19:03 Brief Hx & Hospital Course: 54-year-old male with a known history of CAD status post PCI, diabetes mellitus type 2, hypertension, dyslipidemia who initially presented to the hospital with syncope episode found to have suspected syncope ruled out cardiac arrhythmia. Patient has had does have known history of CAD status post PCI. Patient does have known history of hypertension diabetes mellitus type 2 and dyslipidemia. Patient was seen by Cardiology recommended to be monitored for 24 hours. Patient's has a known tele arrhythmias. Patient currently stable to be discharged with a close follow up as an outpatient with the Cardiology for outpatient Holter monitoring. Patient is currently understand verbalized the understanding and agreeable to plan. Condition at Discharge: Stable Final Diagnosis/Problems List 54-year-old male with a known history of CAD status post PCI, diabetes mellitus type 2, hypertension, dyslipidemia who initially presented to the hospital with syncope episode found to have 1. Syncope ruled out cardiac arrhythmia 2. CAD status post PCI 3. Hypertension 4. diabetes mellitus type 2 5. Dyslipidemia Discharge Disposition: Home SNF Discharge Will this Physician continue t: No Discharge Instruct/Medications Diet: Cardiac 2g Na,low cholest Activity: No Restrictions, As Tolerated Follow Up/Referral: Follow up with the PCP in 1-2 weeks Follow up with Dr. Johnson for outpatient Holter monitoring. Medications: Resume home medications. Scheduled Aspirin (Aspir-Low), 81 MG PO DAILY Atorvastatin Calcium (Atorvastatin Calcium), 2 TAB PO HS Clopidogrel Bisulfate (Clopidogrel), 1 TAB PO DAILY Dicyclomine Hcl (Bentyl Capsule), 2 CAP PO Q6HPRN Lisinopril (Lisinopril), 10 MG PO DAILY Metformin Hydrochloride (Metformin Hcl), 500 MG PO IBID, (Reported) Metoprolol Tartrate (Lopressor Tablet), 50 MG PO BID Pantoprazole Sodium Sesquihydr (Protonix), 40 MG PO PRN, (Reported) Pioglitazone Hydrochloride (Actos Tablet), 15 MG PO DAILY, (Reported) Ranolazine (Ranexa), 1,000 MG PO BID Scheduled PRN Nitroglycerin (Ntrostat Sublingual), 0.4 MG SL PRN PRN for FOR CHEST PAIN, (Reported) Miscellaneous Medications [place]-3 Fatty Acids ([place] Monopure 650 EC 650 mg), 1 CAP PO, (Reported) Discharge Statement: "Patient was advised to return to the ER or call 911 if any headaches, dizziness, shortness of breath, chest pain, abdominal pain, bleeding, fevers, or worsening of medical condition. Patient was counseled about treatment plan, medications, possible side effects, patientverbalized understanding. All questions were answered to the best of my ability. This discharge took greater then 30 minutes in planning, reviewing documentation, counseling the patient, and discussing with other team members." ASSESSMENT ASSESSMENT Assessment 54-year-old male with a known history of CAD status post PCI, diabetes mellitus type 2, hypertension, dyslipidemia who initially presented to the hospital with syncope episode found to have 1. Syncope ruled out cardiac arrhythmia 2. CAD status post PCI 3. Hypertension 4. diabetes mellitus type 2 5. Dyslipidemia Date of Service: Mar 17, 2025 Billing Provider: PIPO DORAN MD Common Visit Codes: 39696-RHD/OBS DISCH DAY >30min PIPO DORAN MD Mar 17, 2025 15:52
--- NOTE | 2025-03-20 10:35 | DVHSR ---
APPROVED REPORT EXAM: Two-dimensional and M-mode echocardiogram with Doppler and color Doppler. Blood Pressure: 107/71 mmHg INDICATION Chest Pain RISK FACTORS Obesity: Height: 5'7, Weight: 192 DIMENSIONS LVDd4.4 (3.8-5.7cm)LA (2D)4.4 (1.9-4.0cm)Aortic Root3.7 (2.0-3.7cm) LVDs2.6 (2.5-4.0cm)LA (MM) (1.9-4.0cm)Aortic Cusp Exc1.7 (1.5-2.0cm) EF (%) 60.0 (55-70%)Rt. Atrium2.6 (1.9-4.0cm)Asc. Aorta3.5 cm IVSd1.0 (0.7-1.1cm)RV (D)3.8 (1.8-2.4cm) PWd1.0 (0.7-1.1cm) Mitral Valve MitralMitral Stenosis E wave0.54m/sMV Mean GR.mmHg A wave0.85m/sMV Peak GR.mmHg E/A ratio0.62D MVAcm2 DECEL [id number] 1/2 [place] Aortic Valve Aortic ValveAortic Stenosis V10.80m/Cec[place] Mean GR.3mmHg V21.11m/Cec[place] Peak GR.5mmHg LVOT Diameter2.2 (1.8-2.4cm)Doppler AVA2.74cm2 Pulmonic Valve V20.88m/s Tricuspid Valve TR Velocity1.96m/s [id number] Other Information Quality : Technically LimitedRhythm : Technically limited study due to body habitus. Conclusion lvef 60% by visual estimate moderate lvh normal rv function no severe valve abnormalities noted
== END 2025-03-17 16:45 | disposition home or self-care (01) | DRG 48 ==
LOC: ER 17:54 → TELE-WESTW 19:00 → OVERFLOW 23:29 → TELE-WESTW 03-16 15:15
PROVIDERS: ADMIT Hospitalist; ATTEND Hospitalist
DX: G90.89 Other disorders of autonomic nervous system (principal); E11.22 Type 2 diabetes mellitus with diabetic chronic kidney disease; E66.9 Obesity, unspecified; I12.9 Hypertensive chronic kidney disease with stage 1 through stage 4 chronic kidney disease, or unspecified chronic kidney disease; N18.30 Chronic kidney disease, stage 3 unspecified; Z68.30 Body mass index [BMI] 30.0-30.9, adult; I25.10 Atherosclerotic heart disease of native coronary artery without angina pectoris; E78.5 Hyperlipidemia, unspecified; K21.9 Gastro-esophageal reflux disease without esophagitis; Z98.61 Coronary angioplasty status; Z83.3 Family history of diabetes mellitus; Z82.62 Family history of osteoporosis; Z82.5 Family history of asthma and other chronic lower respiratory diseases; Z82.49 Family history of ischemic heart disease and other diseases of the circulatory system; Z82.3 Family history of stroke; Z82.0 Family history of epilepsy and other diseases of the nervous system; Z81.8 Family history of other mental and behavioral disorders; Z80.8 Family history of malignant neoplasm of other organs or systems; Z80.42 Family history of malignant neoplasm of prostate; Z80.3 Family history of malignant neoplasm of breast; Z80.1 Family history of malignant neoplasm of trachea, bronchus and lung; Z90.49 Acquired absence of other specified parts of digestive tract
CPT/HCPCS: 36415; 70450; 71046; 80048; 80053; 82962; 83735; 84484; 85025; 85379; 85610; 85730; 93005; 93306; 96360; G0378; J1815; J2405

== ENCOUNTER 2025-07-13 18:00 | Emergency (ER) | payer MEDICAID ==
[~2025-07-13] VITALS: Ht 170.2 cm; Wt 86.9 kg
[~2025-07-13 18:00] MED LIST changes: +OMEG-77 PO; -ZOFR4T PO
[2025-07-13 18:41] LABS: Hematocrit 39.3 % (41.0-53.0); Hemoglobin 13.4 g/dL (13.5-17.5); Mean Corpuscular Hemoglobin 28.9 pg (28.0-32.0); Mean Corpuscular Volume 85.0 fL (80.0-100.0); Nucleated Red Blood Cells % 0.1 %
[2025-07-13 19:01] LABS: Chloride 104 mmol/L (98-107); Potassium 4.2 mmol/L (3.5-5.1); Sodium 140 mmol/L (136-145)
[2025-07-13 19:02] LABS: Anion Gap 10 (5-15); Calcium 9.1 mg/dL (8.7-10.4); Carbon Dioxide 26 mmol/L (20-31)
[2025-07-13 19:07] LABS: BUN/Creatinine Ratio 14.8 (10.0-20.0); Blood Urea Nitrogen 18 mg/dL (9-23); Glucose 80 mg/dL (74-106)
--- NOTE | 2025-07-13 19:48 | ED.PDOC ---
History of Present Illness HPI Comments 54-year-old male who comes in with chief complaint of left rib pain. The patient states that the pain is burning in nature. The pain is a 10/10. There has been no nausea, vomiting or diarrhea. The patient denies any shortness of breath, fever or chills. Chief Complaint: Rib Pain Time Seen by MD: 18:10 Primary Care Provider: unknown Reviewed Notes: Nurses Notes, Medications, Allergies (No allergies) Allergies: Coded Allergies: NO KNOWN ALLERGIES (Verified , 12/31/20) Home Meds Active Scripts Hydrocodone-Acetaminophen (Hydrocodone Bitartrate/AC 5-325 mg) 1 Tab Tab, 1 TAB PO Q8HP PRN for 7 Days, #21 TAB Prov:SANNA ADAIR MD 07/13/25 Acyclovir (ZOVIRAX TABLET) 400 Mg Tb, 1 TAB PO TID, #30 TAB Prov:SANNA ADAIR MD 07/13/25 Dicyclomine Hcl (BENTYL CAPSULE) 10 Mg Cp, 2 CAP PO Q6HPRN, #30 CAP 3 Refills Prov:VAL INGRAM DO 01/01/24 Ranolazine (Ranexa) 500 Mg Tab, 1000 MG PO BID, #90 TAB Prov:BRANDON CUNNINGHAM MD 08/17/22 Metoprolol Tartrate (LOPRESSOR TABLET) 50 Mg Tb, 50 MG PO BID, #60 TAB Prov:JOÃO HENAO MD 01/02/22 Lisinopril (Lisinopril) 5 Mg Tab, 10 MG PO DAILY, #60 TAB Prov:JOÃO HENAO MD 01/02/22 Aspirin (Aspir-Low) 81 Mg Tab, 81 MG PO DAILY, #30 TAB Prov:JOÃO HENAO MD 01/02/22 Clopidogrel Bisulfate (CLOPIDOGREL) 75 Mg Tab, 1 TAB PO DAILY, #30 TAB 1 Refill Prov:JOÃO HENAO MD 01/02/22 Atorvastatin Calcium (ATORVASTATIN CALCIUM) 20 Mg Tab, 2 TAB PO HS, #30 TAB 5 Refills Prov:TARAH HENAO MD 05/28/20 Reported Medications [place]-3 Fatty Acids ([place] Monopure 650 EC 650 mg) 1 Cap Cap, 1 CAP PO, CAP 03/16/25 Pioglitazone Hydrochloride (ACTOS TABLET) 30 Mg Tb, 15 MG PO DAILY, TAB 06/29/19 Metformin Hydrochloride (Metformin Hcl) 500 Mg Tab, 500 MG PO IBID for 30 Days, MG 06/29/19 Pantoprazole Sodium Sesquihydr (Protonix) 40 Mg Tab, 40 MG PO PRN, #30 TAB 01/17/17 Nitroglycerin (NTROSTAT SUBLINGUAL) 0.4 Mg Sl, 0.4 MG SL PRN PRN for FOR CHEST PAIN *MAY REPEAT EVERY 5 MINUTES X 3 TOTAL IF NO RELIEF, INITIATE ANALGESIC THERAPY. NOTIFY PHYSICIAN *Do not crush. 05/05/16 Information Source: Patient (cations) Mode of Arrival: Ambulatory Severity: Moderate Timing: Days Duration: Since onset Prehospital treatment: None Quality Burning left-sided chest pain that radiates from the mid chest to the mid back Past Medical History PAST MEDICAL HISTORY: Anemia, Angina, CAD, CKF, DM, GERD, High Lipids, HTN, MT Surgical History: Cholecystectomy, PTCA Family History Family History: Reviewed,noncontributory to illness, Family hx of DM, Family hx of heart adam, Family hx of HTN Social History Smoker: Non-Smoker Alcohol: Denies ETOH Use Drugs: Denies Drug Use Lives In: Home Constitutional: denies: chills, diaphoresis, fatigue, fever, malaise, sweats, weakness, others EENTM: denies: blurred vision, double vision, ear bleeding, ear discharge, ear drainage, ear pain, ear ringing, eye pain, eye redness, hearing loss, mouth pain, mouth swelling, nasal discharge, nose bleeding, nose congestion, nose pain, photophobia, tearing, throat pain, throat swelling, voice changes, others Respiratory: denies: cough, hemoptysis, orthopnea, SOB at rest, shortness of breath, SOB with excertion, stridor, wheezing, others Cardiovascular: reports: chest pain; denies: dizzy spells, diaphoresis, Dyspnea on exertion, edema, irregular heart beat, left arm pain, lightheadedness, palpitations, PND, syncope, others Gastrointestinal: denies: abdomen distended, abdominal pain, blood streaked bowels, constipated, diarrhea, dysphagia, difficulty swallowing, hematemesis, melena, nausea, poor appetite, poor fluid intake, rectal bleeding, rectal pain, vomiting, others Genitourinary: denies: burning, dysuria, flank pain, frequency, hematuria, incontinence, penile discharge, penile sore, pain, testicle pain, testicle swelling, urgency, others Musculoskeletal: denies: back pain, gout, joint pain, joint swelling, muscle pain, muscle stiffness, neck pain, others Integumetry: denies: bruises, change in color, change in hair/nails, dryness, laceration, lesions, lumps, rash, wounds, others Allergic/Immunocompromised: denies: Difficulty Healing, Frequent Infections, Hives, Itching, others Hematologic/Lymphatic: denies: anemia, blood clots, easy bleeding, easy bruising, swollen glands, others Endocrine: denies: excessive hunger, excessive sweating, excessive thirst, excessive urination, flushing, intolerance to cold, intolerance to heat, unexplained weight gain, unexplained weight loss, others Psychiatric: denies: anxiety, bipolar disorder, depression, hopeless, panic disorder, schizophrenia, sleepless, suicidal, others Physical Exam General Appearance: No Apparent Distress HEENT: Normal ENT Inspection, Pharynx Normal, TMs Normal Neck: Full Range of Motion, Non-Tender, Normal, Normal Inspection Respiratory: Lungs Clear, No Accessory Muscle Use, No Respiratory Distress, Normal Breath Sounds, Other (There is no sign of any redness to the left chest but there is some tenderness to the left chest in the dermatome distribution of the chest and back) Cardiovascular: No Edema, No JVD, No Murmur, No Gallop, Normal Peripheral Pulses, Regular Rate/Rhythm Breast Exam: Deferred Gastrointestinal: No Organomegaly, Non Tender, No Pulsatile Mass, Normal Bowel Sounds, Soft Genitalia: Deferred Pelvic: Deferred Rectal: Deferred Extremities: No calf tenderness, Normal capillary refill, Normal inspection, Normal range of motion, Non-tender, No pedal edema Musculoskeletal : Apperance: Normal Neurologic: Alert, instructional technology teacher II-XII nml as Tested, No Motor Deficits, Normal Affect, Normal Mood, No Sensory Deficits Cerebellar Function: Normal Reflexes: Normal Skin: Dry, Normal Color, Warm Lymphatic: No Adenopathy Was a procedure done? Was a procedure done?: No Differential Dx Considerations may include: Herpes zoster, shingles, musculoskeletal pain, ACS, MT X-Ray, Labs, Meds, VS Vital Signs Date Time Temp Pulse Resp B/P (MAP) Pulse Ox O2 Delivery O2 Flow Rate FiO2 07/13/25 18:03 97.5 82 18 165/98 96 97.5 Lab Test 07/13/25 19:30 07/13/25 18:30 Range/Units Troponin I High Sensitivity Pending 6 </=54 ng/L White Blood Count 8.5 4.4-10.8 10^3/uL Red Blood Count 4.62 4.5-5.90 10^6/uL Hemoglobin 13.4 L 13.5-17.5 g/dL Hematocrit 39.3 L 41.0-53.0 % Mean Corpuscular Volume 85.0 80.0-100.0 fL Mean Corpuscular Hemoglobin 28.9 28.0-32.0 pg Mean Corpuscular Hemoglobin Concent 34.0 32.0-36.0 g/dL Red Cell Distribution Width 13.3 11.8-14.3 % Platelet Count 328 140-450 10^3/uL Mean Platelet Volume 7.2 6.9-10.8 fL Neutrophils (%) (Auto) 63.1 37.0-80.0 % Lymphocytes (%) (Auto) 26.0 10.0-50.0 % Monocytes (%) (Auto) 9.1 0.0-12.0 % Eosinophils (%) (Auto) 1.4 0.0-7.0 % Basophils (%) (Auto) 0.4 0.0-2.0 % Neutrophils # (Auto) 5.4 1.6-8.6 10 ^3/uL Lymphocytes # (Auto) 2.2 0.4-5.4 10 ^3/uL Monocytes # (Auto) 0.8 0-1.3 10 ^3/uL Eosinophils # (Auto) 0.1 0-0.8 10 ^3/uL Basophils # (Auto) 0 0-0.2 10 ^3/uL Nucleated Red Blood Cells 0.1 % Sodium Level 140 136-145 mmol/L Potassium Level 4.2 3.5-5.1 mmol/L Chloride Level 104 98-107 mmol/L Carbon Dioxide Level 26 20-31 mmol/L Anion Gap 10 5-15 Blood Urea Nitrogen 18 9-23 mg/dL Creatinine 1.22 0.700-1.30 mg/dL Glomerular Filtration Rate Calc 70 >90 mL/min BUN/Creatinine Ratio 14.8 10.0-20.0 Serum Glucose 80 74-106 mg/dL Calcium Level 9.1 8.7-10.4 mg/dL The patient's CBC is within normal limits The chemistry panel is within normal limits The troponin level is negative The patient's vital signs remained stable The chest x-ray shows no sign of any infiltrates or abnormalities. The patient is being discharged on acyclovir and [place]. The patient will return to the emergency department's the condition worsens. Images Reviewed?: Images reviewed and evaluated by me Time of 1ST Reevaluation: 19:47 Reevaluation 1ST: Improved Patient Education/Counseling: Diagnosis, Treatment, Prognosis, Need For Follow Up Family Education/Counseling: No Family Present SEPSIS Sepsis Screen Date sepsis recognized/suspect: Jul 13, 2025 Time Sepsis recognized/suspect: 1804 Recent Procedure: No On Antibiotic Therapy: No Respiratory Rate >20: No Heart Rate >90: No Temp<36 C (96.8 F) or >38.3 C: No SBP <90 or MAP <65 mmHG: No New Acute Mental Status Change: No Is the patient on CPAP, BIPAP,: No Physician Orders Troponin-I Hs (07/14/25 00:00) Troponin-I Hs (07/14/25 03:00) Troponin-I Hs (07/14/25 06:00) Urinalysis (07/13/25 18:19) Chest Two Views Routine (07/13/25 18:19) Electrocardigram (07/13/25 18:19) Troponin-I Hs (07/13/25 21:19) Electrocardigram (07/13/25 19:19) Electrocardigram (07/13/25 21:19) Vital Signs Date Time Temp Pulse Resp B/P (MAP) Pulse Ox O2 Delivery O2 Flow Rate FiO2 07/13/25 18:03 97.5 82 18 165/98 96 97.5 Laboratory Tests Test 07/13/25 18:30 White Blood Count 8.5 10^3/uL (4.4-10.8) Departure 1 Departure Time of Disposition: 19:59 Impression: Primary Impression: Acute chest pain Disposition: HOME / SELF CARE / HOMELESS Condition: Fair e-Prescriptions Hydrocodone-Acetaminophen (Hydrocodone Bitartrate/AC 5-325 mg) 1 Tab Tab 1 TAB PO Q8HP PRN for 7 Days, #21 TAB Prov: SANNA ADAIR MD 07/13/25 Acyclovir (ZOVIRAX TABLET) 400 Mg Tb 1 TAB PO TID, #30 TAB Prov: SANNA ADAIR MD 07/13/25 Discharged With: Self Critical Care Note Critical Care Time?: No Stability Stability form required: No Heart Score Heart Score: Heart Score Response (Comments) Value History N/A 0 EKG N/A 0 Age N/A 0 Risk Factors N/A 0 Troponin N/A 0 Total 0 SANNA ADAIR MD Jul 13, 2025 19:48
[2025-07-13] MEDS ORDERED: ACYC400T16 PO (19:55)
[2025-07-13] MEDS ORDERED: HYDR-4902 PO (19:56)
--- NOTE | 2025-07-13 19:56 | DVH ---
CHEST RADIOGRAPH INDICATION: cp TECHNIQUE: Frontal and lateral view of the chest was obtained COMPARISON: XY CHEST TWO VIEWS ROUTINE on DOS: 03/15/25, XY CHEST PORTABLE on DOS: 11/04/23, XY CHEST PORTABLE on DOS: 06/12/23, CHEST PORTABLE on DOS: 08/16/22, CXRP on DOS: 08/16/22 FINDINGS/IMPRESSION: The lungs are clear. The cardiomediastinal silhouette is unremarkable. No pleural effusion or pneumothorax. No acute osseous abnormality.
[2025-07-13 20:00] VITALS: BP 162/91; PULSE 84; RESP 16; TEMP 97.7; O2SAT 96
== END 2025-07-13 20:09 | disposition home or self-care (01) ==
LOC: ER 18:00
DX: R07.89 Other chest pain (principal); I10 Essential (primary) hypertension; E11.9 Type 2 diabetes mellitus without complications; I25.10 Atherosclerotic heart disease of native coronary artery without angina pectoris; I25.2 Old myocardial infarction; E78.5 Hyperlipidemia, unspecified; K21.9 Gastro-esophageal reflux disease without esophagitis; Z79.82 Long term (current) use of aspirin; Z79.84 Long term (current) use of oral hypoglycemic drugs; Z79.899 Other long term (current) drug therapy; Z90.49 Acquired absence of other specified parts of digestive tract
CPT/HCPCS: 36415; 71046; 80048; 84484; 85025